=== PATIENT | male | born 1950 | race Caucasian/White ===

== ENCOUNTER → 2017-04-17 | Outpatient (CLI) | payer BC ==
--- NOTE | 2017-04-17 08:10 | XR ---
EXAMINATION TYPE: XR chest 2V DATE OF EXAM: 04/17/2017 COMPARISON: NONE HISTORY: Presurgical study. TECHNIQUE: Frontal and lateral views of the chest are obtained. FINDINGS: There is no focal air space opacity, pleural effusion, or pneumothorax seen. Underlying m ild emphysematous change is not excluded on lateral view. The cardiac silhouette size is within anuj l limits. The osseous structures are intact. IMPRESSION: No acute cardiopulmonary process.
[2017-04-17 08:14] LABS: Appearance,Urine Clear (Clear); Bilirubin,Urine Negative (Negative); Blood,Urine Negative (Negative); Color,Urine Yellow; Glucose,Urine (UA) Negative (Negative); Ketones,Urine Negative (Negative); Leukocyte Esterase,Urine Negative (Negative); Nitrite,Urine Negative (Negative); Protein,Urine Negative (Negative); Specific Gravity,Urine 1.006 (1.001-1.035); Urobilinogen,Urine <2.0 mg/dL (<2.0)
[2017-04-17 08:15] LABS: Basophils # (A) 0.1 k/uL (0-0.2); Basophils % (A) 1 %; Eosinophils # (A) 0.3 k/uL (0-0.7); Eosinophils % (A) 3 %; HGB 16.2 gm/dL (13.0-17.5); Lymphocytes # (A) 2.3 k/uL (1.0-4.8); Lymphocytes % (A) 21 %; MCHC 31.7 g/dL (31.0-37.0); MCV 91.4 fL (80.0-100.0); Mean Platelet Volume 7.7; Monocytes # (A) 0.7 k/uL (0-1.0); Monocytes % (A) 6 %; Neutrophils # (A) 7.5 k/uL (1.3-7.7); Neutrophils % (A) 68 %; Platelet Count 314 k/uL (150-450); RBC 5.58 m/uL (4.30-5.90); RDW 14.9 % (11.5-15.5)
[2017-04-17 08:22] LABS: Prothrombin Time 9.9 sec (9.0-12.0)
[2017-04-17 08:37] LABS: Anion Gap 9 mmol/L; Blood Urea Nitrogen 10 mg/dL (9-20); Calcium 10.1 mg/dL (8.4-10.2); Carbon Dioxide 26 mmol/L (22-30); Chloride 105 mmol/L (98-107); Glucose 113 mg/dL (74-99); Potassium 4.5 mmol/L (3.5-5.1); Sodium 140 mmol/L (137-145)
== END | disposition home or self-care (01) ==
LOC: LABPAT 07:29
PROVIDERS: ATTEND Orthopaedic Surgery Orthopaedic Surgery of the Spine
DX: Z01.818 Encounter for other preprocedural examination (principal); M43.17 Spondylolisthesis, lumbosacral region; Z79.01 Long term (current) use of anticoagulants; Z01.812 Encounter for preprocedural laboratory examination
CPT/HCPCS: 71046; 80048; 81003; 85025; 85610; 85730; 87070

== ENCOUNTER 2017-04-24 10:26 | Inpatient (IN) | payer BC ==
[2017-04-14 15:20] VITALS: BMI 27.2
[~2017-04-24 10:26] MED LIST: BACITRACIN 50,000 UNIT, POLYMYXIN B 500,000 UNIT in SODIUM CHLORIDE 0.9% IRRIGATIO 1,00... IRRIGATION ONE; DEXAMETHASONE SOD PHOSPHATE 10 MG/ML 1 ML VIAL IV ONE; HYDROmorphone 0.5 MG/0.5 ML SYRINGE IVP PRN; LIDOCAINE 1% 20 ML VIAL (10MG/ML) FOR IV START INTRADERMA PRN; MIDAZOLAM 2 MG/2 ML VIAL IV PRN; ONDANSETRON 4 MG/2 ML VIAL IVP ONE; ceFAZolin 2 GM in SODIUM CHLORIDE 0.9% 100 ML IVPB ONE; ceFAZolin IN SWFI 2 GM/20 ML SYRINGE IVP ONE
[2017-04-24] MEDS: LACTATED RINGERS 1,000 ML IV SCH (11:19)
[2017-04-24 11:22] VITALS: RESP 16
[2017-04-24] MEDS ORDERED: HEPARIN SODIUM,PORCINE 10,000 UNIT/ML 1 ML VIAL ONE (12:39)
[2017-04-24] MEDS ORDERED: LIDOCAINE 1% INJ 10MG/ML (20 ML MDV) ONE (12:39)
[2017-04-24] MEDS ORDERED: fentaNYL (PF) 50 MCG/ML 2 ML AMP ONE (12:39)
[2017-04-24] MEDS ORDERED: SUCCINYLCHOLINE CHLORIDE 100 MG/5 ML SYR IV ONE (12:39)
[2017-04-24] MEDS ORDERED: ePHEDrine 50 MG/ML 1 ML AMP ONE (12:39)
[2017-04-24] MEDS ORDERED: MIDAZOLAM 2 MG/2 ML VIAL ONE (12:39)
[2017-04-24] MEDS ORDERED: PHENYLEPHRINE-0.9% NACL SYG 1 MG/10 ML SYRINGE ONE (12:39)
[2017-04-24] MEDS ORDERED: SODIUM CHLORIDE 0.9% IRRIG 1,000 ML BTL IRRIGATION ONE (12:39)
[2017-04-24] MEDS ORDERED: GLYCOPYRROLATE 0.2 MG/ML 2 ML VIAL ONE (12:39)
[2017-04-24] MEDS ORDERED: PROPOFOL 10 MG/ML 20 ML VIAL IV ONE (12:39)
[2017-04-24] MEDS ORDERED: BUPIVACAINE (PF) 0.5% 30 ML VIAL SQ ONE (13:29)
[2017-04-24] MEDS ORDERED: LACTATED RINGERS 1,000 ML IV ONE (14:28)
--- NOTE | 2017-04-24 15:18 | FL ---
EXAMINATION TYPE: FL guidance operating room, XR lumbar spine 2 or 3V DATE OF EXAM: 04/24/2017 CLINICAL HISTORY: Low back pain. TECHNIQUE: Fluoroscopy. Intraoperative 2 views lumbar spine. COMPARISON: None. FINDINGS: Fluoroscopic guidance was provided during minimally invasive lumbar fusion procedure perfo rmed by Dr. Brooks. A total of 1 minute 8 seconds of fluoroscopic time was utilized during the proced ure and 2 spot intraoperative images are acquired. Intraoperative images obtained show placement of posterior fusion hardware and metallic disc material L5-S1 level. Disc is not well seen on lateral view due to underpenetration and portable technique. IMPRESSION: As Above.
[2017-04-24] MEDS ORDERED: DIAZEPAM 5 MG TAB PO PRN (15:23)
[2017-04-24] MEDS ORDERED: HYDROmorphone 4 MG/ML 1 ML SYRINGE IVP PRN ×2 (15:23)
[2017-04-24] MEDS ORDERED: ONDANSETRON 4 MG/2 ML VIAL IVP PRN (15:23)
[2017-04-24] MEDS ORDERED: HYDROcodone/APAP 5-325MG 1 EACH TAB PO PRN ×2 (15:23)
[2017-04-24] MEDS ORDERED: BENZOCAINE/MENTHOL LOZENG 1 EACH LOZENGE MUCOUS MEM PRN (15:23)
[2017-04-24] MEDS ORDERED: MAGNESIUM HYDROXIDE 2,400 MG/10 ML CUP PO PRN (15:23)
--- NOTE | 2017-04-24 15:31 | P.OP ---
Date of Procedure: 04/24/17 Preoperative Diagnosis: Grade 2 spondylolisthesis L5-S1, degenerative disc disease, spinal stenosis, lower extremity radiculopathy Postoperative Diagnosis: same Anesthesia: GETA Pathology: none sent Condition: stable Disposition: PACU Description of Procedure: DESCRIPTION OF PROCEDURE(S): BRIEF OPERATIVE NOTE Preoperative Diagnosis: Grade 2 spondylolisthesis L5-S1, spinal stenosis L5-S1, degenerative disc disease L5-S1, back pain with lower extremity radiculopathy Postoperative Diagnosis: Same Procedure: Laminectomy and decompression with facetectomy L5-S1 Minimally invasive Posterior lateral decompression and facet fusion L5-S1 Minimally invasive Transforaminal lumbar interbody fusion for a 360 fusion L5-S1 Discectomy for decompression L5-S1 Placement of interbody graft L5-S1 Local autogenous bone grafting Harvesting of bone marrow aspirate via the pedicle of L5 Use of Cell Saver Use of bone graft extenders Surgeon: Dr. Brooks Application Support Analyst: Ham Ramirez is present throughout the entire the case persistence during positioning, dissection, exposure, visualization, and all crucial elements of the case as well as closure. Anesthesia: General anesthesia Estimated blood loss: Approximately 100 mL with none given back in Cell Saver Complications: None apparent Components implanted: K2M minimally invasive [place] pedicle screw system with 6.5 mm screws and 2 rods and 1. I'm titanium interbody cage with osteo-amp sponge and DBX bone putty to supplemental local autogenous and bone marrow aspirate Disposition: To recovery room in good stable condition. OPERATIVE INDICATIONS The patient has had long-standing issues in their lower back and lower extremities. He was found have a dynamic spondylolisthesis which was grade 2 at L5-S1 which correlated well with his back and lower extremity symptoms. He had significant radiculopathy as well as back pain due to spondylolisthesis and stenosis at L5-S1. The patient has been through conservative treatment. He was having progressive pain and was not having any benefit despite aggressive conservative treatment. We discussed various treatment options including surgery, and the patient wishes to proceed with surgery We discussed the risk, patient's alternatives and benefits of surgery including but not limited to, risk of bleeding risk of infection, risk of need for further surgery, risk of decreased, loss of motion, muscle function, malunion nonunion, hardware failure , nerve damage, paralysis, heart attack, blindness and . OPERATIVE SUMMARY After discussing all the risks, patient alternatives and benefits at length, the patient elected to proceed with surgical intervention, signed informed consent, and presented for their procedure. The patient was seen and examined in the preoperative holding area and the surgical site was marked. The patient was given antibiotics and brought to the operating room. The patient was sedated and intubated by anesthesia in standard fashion. The patient was positioned on to the operating room table in a prone position on the appropriate frame which was well-padded and well molded. We were careful to pad any bony prominences and pressure points. We were careful to maintain the patient's cervical spine and good neutral alignment and position throughout. The patient was prepped and draped in a normal standard fashion. An appropriate timeout and keystone protocol performed. We were able to proceed with the surgery. The local wound area was infiltrated with local anesthetic. I was able utilize C-arm guidance to establish appropriate position over the pedicles bilaterally at the appropriate levels at L5-S1. With the appropriate levels confirmed was able to make small stab incisions over the appropriate pedicle sites bilaterally. Utilizing C-arm in his house able to establish a Jamshidi needle over the lateral aspect of the pedicle and advanced the trocar into the pedicle being careful not to breech superiorly inferiorly medially or laterally. Position was confirmed regularly with AP and lateral images on C- arm. I was able to establish the trocar into the pedicle appropriately into the posterior aspect of the vertebral body bilaterally at the appropriate levels. This was done at each of the pedicle positions and each of the vertebrae at L5-S1. I was able place the guidewire into the trocar and into the vertebral body appropriately under C-arm guidance. Dissection was taken down over the wire to the appropriate starting position for the screw placed. The appropriate length screw was chosen, threaded over the guidewire and screwed appropriately into the pedicle and vertebral body under C-arm guidance in excellent alignment and position with good bony purchase. This is done at each of the screw sites at the appropriate levels. With the screws intact I extended the incision to connect the screw hole sites on the most symptomatic side on the left. I dissected down to establish access over the pars and lamina to the base of the spinous process. I was able to expose the facet joint. The capsule the facet was taken down and showed some facet arthrosis at the joint. I was able to use a combination of curettes and Kerrison rongeurs and a high-speed drill to take down the facet joint and do a facetectomy. Partial laminectomy was also performed. I was able get excellent foraminal decompression and central decompression with undermining across midline to perform a laminectomy centrally and contralaterally. As able get good central decompression. The ligamentum flavum was taken down to further decompress centrally and at bilateral neural foramen. I was able to expose the disc space and visualize the traversing nerve root. Note was made of some disc protrusion at the level causing further compression of the nerve root. I was able to establish a annulotomy at the appropriate level protecting soft tissue and neural structures. Note was made of some disc desiccation at the disc. I performed a complete discectomy with accommodation of curettes and rasps and scrapers. I was able get good endplate preparation at the disc space. I was able to get some good reduction of the listhesis at L5-S1. I sized for the appropriate size interbody spacer protecting the soft tissue and neural structures. The wound was copiously irrigated and suctioned dry. There is no evidence of any dural tear or leak. I was able to pack the disc space with local autogenous bone graft as well as a small amount of bone graft which was also placed into the interbody cage itself. Protecting the soft tissue structures and neural structures I was able place the interbody cage in good alignment and good position with good fit and fill at the interbody space of L5-S1. His issues was confirmed with C-arm guidance. Good hemostasis maintained. There is no evidence of any dural tear or leak. The wound was irrigated and suctioned dry. With the hardware intact, intraoperative C-arm imaging was again taken which showed good alignment and position of the hardware at the appropriate levels of L5-S1. We were then able to measure, contour and place the rods and appropriate hardware bilaterally. I was able to place capcrews, tighten them down, and torque them with the torque screwdriver appropriately. With this intact I was able to place the local autogenous bone graft with additional bone graft enhancer as necessary into the posterior lateral gutters over the decorticated transverse processes. The remainder of the bone graft was placed over the facet joint on the contralateral side after taking down the facet joint capsule. With the bone graft intact, a stable construct, and good decompression at the appropriate levels, we were able to proceed with closure. Good hemostasis was maintained. There is no evidence of dural tear or leak. The fascia was closed for a watertight closure. he subcuticular tissue was closed with absorbable suture. The wound was cleaned and dried and dressed with the appropriate dressing. The drapes were broken down. The patient was gently rolled back onto their hospital bed being careful to maintain their cervical spine and good neutral alignment and position. They were woken up by anesthesia, extubated, and brought to the recovery room in good stable condition. The patient will be admitted to the hospital for appropriate postoperative care , medical management and monitoring. We will continue to follow them closely about the postoperative course.
[2017-04-24] MEDS: SODIUM CHLORIDE 0.9% 1,000 ML IV SCH (16:43)
[2017-04-24] MEDS ORDERED: PANTOPRAZOLE 40 MG TABLET PO SCH (17:30)
[2017-04-24] MEDS: CLINDAMYCIN 900 MG in DEXTROSE 5% IN WATER 50 ML IVPB SCH ×4 (17:37→23:55)
[2017-04-24] MEDS: NICOTINE 21MG/24HR PATCH TRANSDERM SCH (20:37)
[2017-04-25] MEDS: SODIUM CHLORIDE 0.9% 1,000 ML IV SCH (03:20)
[2017-04-25] MEDS ORDERED: ACETAMINOPHEN TAB 325 MG TAB PO PRN (07:04)
[2017-04-25] MEDS: LACTATED RINGERS 1,000 ML IV SCH (07:07)
[2017-04-25 07:16] LABS: Basophils # (A) 0.1 k/uL (0-0.2); Basophils % (A) 0 %; Eosinophils # (A) 0.1 k/uL (0-0.7); Eosinophils % (A) 1 %; HCT 44.9 % (39.0-53.0); HGB 15.2 gm/dL (13.0-17.5); Lymphocytes # (A) 2.7 k/uL (1.0-4.8); Lymphocytes % (A) 12 %; MCH 30.8 pg (25.0-35.0); MCHC 33.9 g/dL (31.0-37.0); MCV 90.9 fL (80.0-100.0); Mean Platelet Volume 6.5; Monocytes # (A) 1.4 k/uL (0-1.0); Monocytes % (A) 6 %; Neutrophils # (A) 18.5 k/uL (1.3-7.7); Neutrophils % (A) 80 %; Platelet Count 332 k/uL (150-450); RBC 4.95 m/uL (4.30-5.90); RDW 13.2 % (11.5-15.5)
[2017-04-25 07:25] LABS: Anion Gap 12 mmol/L; Blood Urea Nitrogen 9 mg/dL (9-20); Calcium 10.2 mg/dL (8.4-10.2); Carbon Dioxide 26 mmol/L (22-30); Chloride 102 mmol/L (98-107); Glucose 114 mg/dL (74-99); Potassium 4.1 mmol/L (3.5-5.1); Sodium 140 mmol/L (137-145)
[2017-04-25 08:06] VITALS: BP 155/83; PULSE 95; TEMP 98.2
[2017-04-25] MEDS: NICOTINE 21MG/24HR PATCH TRANSDERM SCH (08:18)
[2017-04-25] MEDS ORDERED: SENNOSIDES-DOCUSATE SODIUM 1 EACH TAB PO SCH (09:00)
--- NOTE | 2017-04-25 12:23 | P.DS ---
Providers Date of admission: 04/24/17 10:51 Expected date of discharge: 04/25/17 Attending physician: Lizzie Brooks Consults: 04/24/17 15:23 Consult Physician Routine Consulting Provider: Pietro Martinez Consult Reason/Comments: Medical management Do you want consulting provider notified?: Yes Primary care physician: Marqius Kat - Discharge Diagnosis(es) (1) Lumbar canal stenosis Current Visit: Yes Status: Acute (2) Radiculopathy with lower extremity symptoms Current Visit: Yes Status: Acute (3) Low back pain Current Visit: Yes Status: Acute (4) Spondylolisthesis at L5-S1 level Current Visit: Yes Status: Acute (5) DDD (degenerative disc disease), lumbosacral Current Visit: Yes Status: Acute Hospital Course: This is a pleasant 66-year-old male who presented with L5-S1 grade 2 spondylolisthesis, degenerative disc disease, and spinal canal stenosis with low back pain and lower extremity radiculopathy who failed outpatient conservative therapy. He was admitted for a minimally invasive posterior lateral decompression and fusion with transforaminal lumbar interbody fusion at L5-S1. The patient tolerated the procedure well and did well postoperatively. He has been able to ambulate the hallways multiple times without significant difficulty. His back pain has been controlled. He states he did not take any narcotic pain medication postoperatively until 8:00 this morning. He's been eating and voiding without difficulty. He is not experiencing any abdominal pain. He is not currently complaining of any lower extremity radiculopathy symptoms. He states he is ready for discharge home. Condition on day of discharge stable. Patient will be discharged home. Patient was cleared preoperatively for surgery by . Patient currently denies any nausea, vomiting, fever, or chills. Patient is eating and voiding freely without difficulty. Patient may shower Tegaderm dressing intact. Patient may remove Tegaderm dressing in 3 days and shower without a dressing at that time. Patient should keep Steri-Strips intact and allow them to fall off naturally. Patient should refrain from driving until at least after their first follow-up appointment in the office. Patient should avoid excessive bending, lifting, and twisting; no lifting greater than 10 pounds. We discussed patient may resume previous he prescribed home medications. He should avoid anti-inflammatories over the next 6 weeks. Patient has medication at home for [place] 5 mg/325 mg daily which he may take as previously prescribed. He does have some difficulty with constipation but states he has stool softeners and laxatives as prescribed by his primary care provider. He may take this medication as prescribed as needed for relief of symptoms. His dressing is currently dry and intact. We will plan for his dressing to be changed prior to discharge home to nonstick Telfa and Tegaderm. Physical Exam on day of discharge: Patient is awake, alert, and oriented 3 Vital signs stable Good chest excursion with deep inspiration and expiration Abdomen soft nontender No signs or symptoms of DVT; no calf pain Extensor hallucis longus, plantarflexion, and dorsiflexion positive sustained bilateral lower extremities Patient is able to lift legs independently off the bed without significant difficulty No significant pain with palpation of the incision sites Incision is dry and intact with some dried blood at the inferior portion of the incision sites; no erythema, purulence, or signs of infection Tegaderm dressing and non-stick Telfa intact Procedures: Minimally invasive posterior lateral decompression and fusion with transforaminal lumbar interbody fusion L5-S1 Patient Condition at Discharge: Stable Plan - Discharge Summary Discharge Rx Participant: Yes New Discharge Prescriptions: No Action Esomeprazole Magnesium [NexIUM] 40 mg PO AC-SUPPER Nicotine 21Mg/24Hr Patch [Habitrol 21Mg/24Hr Patch] 1 patch TRANSDERM DAILY Discharge Medication List Esomeprazole Magnesium [NexIUM] 40 mg PO AC-SUPPER 04/14/17 [History] Nicotine 21Mg/24Hr Patch [Habitrol 21Mg/24Hr Patch] 1 patch TRANSDERM DAILY 08/04 [History] Follow up Appointment(s)/Referral(s): Marquis Kat MD [Primary Care Provider] - 1 Week Ham Diaz PAC [PHYSICIAN COMMUNITY AFFAIRS DIRECTOR] - 2 Weeks (Patient may follow-up with Ham Diaz PA-C or Dr. Saurabh Brooks at [facility] in 2-3 weeks following discharge. ) Activity/Diet/Wound Care/Special Instructions: 1. Patient may shower with Tegaderm dressing intact. 2. Patient may remove Tegaderm dressing in 3 days and shower without a dressing at that time. 3. Patient should keep Steri-Strips intact and allow them to fall off naturally. 4. Patient should refrain from driving until at least after their first follow- up appointment in the office. 5. Patient should avoid excessive bending, twisting, and lifting; no lifting greater than 10 pounds 6. Take medications as prescribed 7. Do not soak in tub Discharge Disposition: HOME SELF-CARE
== END 2017-04-25 13:48 | disposition home or self-care (01) | DRG 455 ==
LOC: 2ORMAIN 10:51 → 3SUR 15:29
PROVIDERS: ADMIT Orthopaedic Surgery Orthopaedic Surgery of the Spine; ATTEND Orthopaedic Surgery Orthopaedic Surgery of the Spine
DX: M43.17 Spondylolisthesis, lumbosacral region (principal); M41.86 Other forms of scoliosis, lumbar region; K59.00 Constipation, unspecified; M48.061 Spinal stenosis, lumbar region without neurogenic claudication; M51.17 Intervertebral disc disorders with radiculopathy, lumbosacral region; Z79.891 Long term (current) use of opiate analgesic; Z79.899 Other long term (current) drug therapy; Z88.0 Allergy status to penicillin; Z88.2 Allergy status to sulfonamides; Z88.8 Allergy status to other drugs, medicaments and biological substances; Z82.49 Family history of ischemic heart disease and other diseases of the circulatory system; Z72.0 Tobacco use
CPT/HCPCS: 71046; 72100; 80048; 81003; 85025; 85610; 85730; 86850; 86891; 86900; 86901; 87070

== ENCOUNTER → 2022-12-21 | Outpatient (CLI) | payer MEDICARE ==
[2022-12-21 11:20] LABS: Appearance,Urine Clear (Clear); Bacteria,Urine Rare /hpf; Bilirubin,Urine Negative (Negative); Blood,Urine Small (Negative); Color,Urine Yellow; Glucose,Urine (UA) Negative (Negative); Ketones,Urine Negative (Negative); Leukocyte Esterase,Urine Moderate (Negative); Mucus,Urine Moderate /hpf; Nitrite,Urine Negative (Negative); Protein,Urine Trace (Negative); RBC,Urine 44 /hpf (0-5); Specific Gravity,Urine 1.016 (1.001-1.035); Squamous Epithelial Cell,Urine <1 /hpf (0-4); Urobilinogen,Urine <2.0 mg/dL (<2.0); WBC,Urine 31 /hpf (0-5)
[2022-12-21 16:11] LABS: ALT 12 U/L (10-49); AST 14 U/L (14-35); Albumin 4.4 d/dL (3.8-4.9); Albumin/Globulin Ratio 1.91 Ratio (1.60-3.17); Alkaline Phosphatase 105 U/L (41-126); BUN/Creat Ratio 9.88 Ratio (12.00-20.00); Blood Urea Nitrogen 7.9 mg/dL (9.0-27.0); Calcium 9.8 mg/dL (8.7-10.3); Carbon Dioxide 25.7 mmol/L (21.6-31.8); Chloride 102 mmol/L (96-109); Globulin 2.3 d/dL (1.6-3.3); Glucose 102 mg/dL (70-110); Potassium 4.4 mmol/L (3.5-5.5); Sodium 141 mmol/L (135-145); Total Bilirubin <0.2 mg/dL (0.3-1.2); Total Protein 6.7 d/dL (6.2-8.2)
[2022-12-21 16:27] LABS: Basophils % (A) 0.8 %; Eosinophils # (A) 0.38 X 10*3/uL (0.04-0.35); Eosinophils % (A) 3.1 %; HCT 49.6 % (39.6-50.0); HGB 16.2 d/dL (13.0-17.0); Lymphocytes # (A) 3.49 X 10*3/uL (0.90-5.00); Lymphocytes % (A) 28.4 %; MCH 28.7 pg (27.0-32.0); MCHC 32.7 d/dL (32.0-37.0); MCV 87.8 FL (80.0-97.0); Mean Platelet Volume 9.4 FL (9.5-12.2); Monocytes # (A) 1.01 X 10*3/uL (0.20-1.00); Monocytes % (A) 8.2 %; NRBC Per 100 WBC 0 X 10*3/uL (0.00-0.01); Neutrophils # (A) 7.27 X 10*3/uL (1.80-7.70); Neutrophils % (A) 59.2 %; Platelet Count 336 X 10*3/uL (140-440); RBC 5.65 X 10*6/uL (4.40-5.60); RDW 14.4 % (11.5-14.5); WBC 12.29 X 10*3/uL (4.50-10.00)
== END | disposition home or self-care (01) ==
LOC: LABPAT 09:59
PROVIDERS: ATTEND Urology
DX: Z01.812 Encounter for preprocedural laboratory examination (principal); N20.0 Calculus of kidney
CPT/HCPCS: 36415; 80053; 81001; 85025; 86850; 86900; 86901; 87086

== ENCOUNTER 2022-12-28 07:17 | Day surgery (SDC) | payer MEDICARE ==
--- NOTE | 2022-12-27 18:05 | P.GSHP ---
History of Present Illness H&P Date: 12/27/22 72 yo male with a history of stones. He recently saw Dr Ovalle while at [facility] and was found to have a 2 cm right renal pelvic stone with obstruction. He was given treatment options and was set up for a PCNL right by me. - Constitutional Constitutional: Denies chills, Denies fever - EENT Eyes: denies blurred vision, denies pain Ears, nose, mouth and throat: Denies headache, Denies sore throat - Cardiovascular Cardiovascular: Denies chest pain, Denies shortness of breath - Respiratory Respiratory: Denies cough, Denies 7 - Gastrointestinal Gastrointestinal: Denies abdominal pain, Denies diarrhea, Denies nausea, Denies vomiting - Genitourinary (Female) Genitourinary: Denies dysuria, Denies hematuria - Genitourinary (Male) Genitourinary: Denies dysuria, Denies hematuria - Musculoskeletal Musculoskeletal: Denies myalgias - Integumentary Integumentary: Denies pruritus, Denies rash - Neurological Neurological: Denies numbness, Denies weakness - Psychiatric Psychiatric: Denies anxiety, Denies depression - Endocrine Endocrine: Denies fatigue, Denies weight change Past Medical History Past Medical History: Fibromyalgia, GERD/Reflux Additional Past Medical History / Comment(s): "chronic bronchitis", seasonal allergies, kidney stones, History of Any Multi-Drug Resistant Organisms: None Reported Past Surgical History: Hernia Repair, Joint Replacement, Tonsillectomy Additional Past Surgical History / Comment(s): sinus surg. spinal cord implant apr 2022, ft hip replaced, Past Anesthesia/Blood Transfusion Reactions: No Reported Reaction Smoking Status: Current every day smoker - Past Family History Father Family Medical History: Cancer Medications and Allergies Home Medications Medication Instructions Recorded Confirmed Type Multivitamins, Thera [Multivitamin 1 tab PO DAILY 12/22/22 12/22/22 History (formulary)] Pregabalin 100 mg PO TID 12/22/22 12/22/22 History Allergies Allergy/AdvReac Type Severity Reaction Status Date / Time dicyclomine [From Bentyl] Allergy Rapid Verified 12/22/22 11:37 Heart Rate moxifloxacin [From Avelox] Allergy Anaphylaxis Verified 12/22/22 11:37 Penicillins Allergy Unknown Verified 12/22/22 11:37 Childhood Sulfa (Sulfonamide Allergy Unknown Verified 12/22/22 11:37 Antibiotics) Childhood bacitracin AdvReac skin Verified 12/22/22 11:37 [From Neosporin blisters ([id number])] neomycin AdvReac skin Verified 12/22/22 11:37 [From Neosporin blisters ([id number])] polymyxin B AdvReac skin Verified 12/22/22 11:37 [From Neosporin blisters ([id number])] Surgical - Exam - General well developed, well nourished, no distress - Eyes normal ocular movement, no icteric - ENT no hearing loss, no congestion - Neck no masses, trachea midline - Respiratory normal respiratory effort, clear to auscultation - Abdomen Abdomen: soft, non tender, no guarding, no rigid, no rebound - Integumentary no rash, no abnormal pigmentation - Neurologic no disoriented, no combative - Psychiatric oriented to time, oriented to person, oriented to place, speech is normal, memory intact Results - Imaging CT scan - abdomen: report reviewed, image reviewed CT scan - pelvis: report reviewed, image reviewed Assessment and Plan Assessment: Impression: Right renal stone, 2cm Plan: right pcnl
[~2022-12-28 07:17] MED LIST changes: -BACITRACIN 50,000 UNIT, POLYMYXIN B 500,000 UNIT in SODIUM CHLORIDE 0.9% IRRIGATIO 1,00... IRRIGATION ONE; -DEXAMETHASONE SOD PHOSPHATE 10 MG/ML 1 ML VIAL IV ONE; -HYDROmorphone 0.5 MG/0.5 ML SYRINGE IVP PRN; +LIDOCAINE 1% (10MG/ML) FOR IV START INTRADERMA PRN; -LIDOCAINE 1% 20 ML VIAL (10MG/ML) FOR IV START INTRADERMA PRN; -MIDAZOLAM 2 MG/2 ML VIAL IV PRN; -ceFAZolin 2 GM in SODIUM CHLORIDE 0.9% 100 ML IVPB ONE; -ceFAZolin IN SWFI 2 GM/20 ML SYRINGE IVP ONE
[2022-12-28] MEDS: LACTATED RINGERS 1,000 ML IV SCH (07:49)
--- NOTE | 2022-12-28 08:11 | XR ---
EXAMINATION TYPE: XR KUB DATE OF EXAM: 12/28/2022 Comparison: None Clinical History: 72-year-old male Right Renal Stone N20.0 Findings: Large 2.3 cm calcification projecting at the right mid abdomen. Smaller 4 mm calcification at the lef t mid abdomen. Generator device at the right side of the pelvis with leads extending up into the lowe r thoracic spinal canal. L5-S1 posterior and interbody lumbar fusion hardware. Partially visualized r ight total hip arthroplasty. Mild to moderate degenerative change left hip. There is moderate to larg e stool burden with bowel content largely obscuring the renal shadows. Lung bases are clear. No dilat ed small bowel loops. Impression: 1. A 2.3 cm stone at the right mid abdomen, likely within the kidney. Smaller 4 mm calcification on t he left. 2. Moderate to large stool burden.
[2022-12-28] MEDS ORDERED: IOPAMIDOL-370 100ML BTL MISCELLANE ONE (10:15)
[2022-12-28] MEDS ORDERED: MAG HYDROX/AL HYDROX/SIMETH 30 ML CUP PO PRN (11:39)
[2022-12-28] MEDS ORDERED: ACETAMINOPHEN TAB 325 MG TAB PO PRN (11:39)
[2022-12-28] MEDS ORDERED: ONDANSETRON 4 MG/2 ML VIAL IVP PRN (11:39)
[2022-12-28] MEDS ORDERED: HYDROmorphone PCA 10 MG/50 ML BAG IV PRN (11:40)
[2022-12-28] MEDS ORDERED: NALOXONE 0.4 MG/ML 1 ML VIAL IV PRN (11:40)
--- NOTE | 2022-12-28 11:45 | P.OP ---
Date of Procedure: 12/28/22 Preoperative Diagnosis: Right renal calculus, large (2.4 cm) Postoperative Diagnosis: Same Procedure(s) Performed: Cystoscopy, placement of occluding balloon catheter right, percutaneous nephrostomy (Dr. Mcguire/joseph), percutaneous nephrostolithotomy ultrasound, placement of 10 J nephrostomy Anesthesia: SAVAGE Surgeon: Giovanni Mcguire Estimated Blood Loss (ml): 100 Pathology: other (Stone) Condition: stable Disposition: PACU Indications for Procedure: Patient is 72. He has a 2.4cm right renal pelvic stone causing pain. He's been given treatment options. He comes for percutaneous nephrostolithotomy Description of Procedure: Patient brought to the operating suite. On the transport gurney he's placed in a frog position after a successful general endotracheal anesthesia. He is prepped and draped sterilely. Cystoscopy Foroblique lens and 21-Nepali sheath identifies an obstructing prostate. The right ureteral orifice is intubated with a 5-Nepali occluding balloon catheter passed up into the UPJ. The cystoscope was removed. Secured to a 16-Nepali Lowery. Patient is placed in a prone position with care to airways and extremities. I performed percutaneous access to the right middle pole calyx with the help of Dr. ruiz. This will be dictated separately. I then dilate the tract to 30- [place]. Introduced the rigid scope into the right kidney. The stone was seen in the right renal pelvis. With ultrasound is broken into smaller pieces in either suctioned out or grasp it with grasping forceps. At the end of the procedure I passed the flexible nephroscope throughout the collecting system and basketed other small fragments. I passed the nephroscope down the ureter and do not see any remaining stone. A 10 J nephrostomy tubes placed the patient is awakened and returned recovery room good condition. He tolerated the procedure well. Blood loss is approximately 100 mL.
--- NOTE | 2022-12-28 11:49 | P.PCN ---
Date of Procedure: 12/28/22 Preoperative Diagnosis: Right renal stone, 2.4 cm Postoperative Diagnosis: Same Procedure(s) Performed: Percutaneous access to right middle pole calyx Surgeon: Giovanni Mcguire Indications for Procedure: The patient has a 2.4 painful right renal pelvic stone and he comes for percutaneous nephrostolithotomy. Description of Procedure: The patient is been previously anesthetized placed on the operating table in a prone position with care to his airway and extremities. I injected air through the previously placed 5-[place]izen [place] occluding catheter in the proximal right ureter. The right middle pole calyx is identified and I pass a 21-[place]izen [place] sheath and a needle into the middle pole calyx. I then pass the nitenol wire into the collecting system. Over the Nitinol wire is then passed the introduction catheter. I removed the inner sheath and then pass an 035 angled glide into the collecting system. Unable to manipulate this down the ureter thus over the wire pass a 3-[place] catheter into the renal pelvis. I am difficult to negotiate in the wire down the renal pelvis so I asked Dr. ruiz of radiology to assist were able to guide the wire down the ureter. I then removed the [place] guidewire and pass an 035 Super Stiff wire into the ureter. I then pass the 8-10-Citizen [place] dilating catheter and removed the inner catheter and pass a another 035 wire down the ureter. Over the working wire then pass a dilating balloon and dilated the tract to 30-Citizen [place] and introduced the working sheath into the collecting system.
[2022-12-28] MEDS: HYDROmorphone 0.5 MG/0.5 ML SYRINGE IVP PRN ×2 (11:54→12:05)
[2022-12-28] MEDS ORDERED: MEPERIDINE 50 MG/ML SYRINGE IVP ONE (12:13)
--- NOTE | 2022-12-28 12:49 | FL ---
EXAMINATION TYPE: FL Perc Nephrostomy New Access DATE OF EXAM: 12/28/2022 COMPARISON: NONE HISTORY: Fluoroscopy TECHNIQUE: Fluoroscopy. FINDINGS: Fluoroscopic guidance was provided during. (DAP) in uGy*m?, mGy*cm? (or similar): 66.491. IMPRESSION: As Above.
[2022-12-28] MEDS ORDERED: LACTATED RINGERS 1,000 ML IV ONE (13:07)
[2022-12-28] MEDS: DEXTROSE 5%-0.45% NACL 1,000 ML IV SCH ×2 (13:53→21:41)
[2022-12-28] MEDS: PREGABALIN 100 MG CAP PO SCH ×2 (18:20→21:39)
[2022-12-29] MEDS: LACTATED RINGERS 1,000 ML IV SCH (05:57)
--- NOTE | 2022-12-29 07:00 | P.DS ---
Providers Attending physician: Giovanni Mcguire Primary care physician: Marquis Daly Miriam Hospital Course: This is a 72-year-old male that underwent a right-sided percutaneous nephrolithotomy by Dr. Mcguire. Patient was admitted to the hospital postoperatively. His catheter was removed on postoperative day #1. He was discharged home on postoperative day #1, at time of discharge was tolerating a diet, and bleeding, pain was controlled. He was discharged home with the nephrostomy tube Plan - Discharge Summary Discharge Rx Participant: No New Discharge Prescriptions: New Ketorolac [Toradol] 10 mg PO Q6HR PRN #15 tab PRN Reason: Pain No Action Multivitamins, Thera [Multivitamin (formulary)] 1 tab PO DAILY Pregabalin 100 mg PO TID Discharge Medication List Multivitamins, Thera [Multivitamin (formulary)] 1 tab PO DAILY 12/22/22 [History] Pregabalin 100 mg PO TID 12/22/22 [History] Ketorolac [Toradol] 10 mg PO Q6HR PRN #15 tab 12/29/22 [Rx] Activity/Diet/Wound Care/Special Instructions: Increase her fluid intake It is normal to have blood in the nephrostomy bag and urine No heavy lifting or straining You can change the dressing as needed
[2022-12-29 07:26] VITALS: BP 153/78; PULSE 83; RESP 15; TEMP 98.4
[2022-12-29] MEDS: PREGABALIN 100 MG CAP PO SCH (08:20)
== END 2022-12-29 09:48 | disposition home or self-care (01) ==
LOC: OR 07:17 → 4SSUR 13:23 → OR 12-29 09:48
PROVIDERS: ATTEND Urology
DX: N20.0 Calculus of kidney (principal); K21.9 Gastro-esophageal reflux disease without esophagitis; F17.200 Nicotine dependence, unspecified, uncomplicated; Z90.89 Acquired absence of other organs; Z98.890 Other specified postprocedural states; Z88.0 Allergy status to penicillin; Z88.2 Allergy status to sulfonamides; Z88.1 Allergy status to other antibiotic agents; Z79.899 Other long term (current) drug therapy
CPT/HCPCS: 94760; 82365; 50432; 74018; 50080; C1769 ×4; C2628; C1894; C1729; J2175; J0690; J2405 ×2; J1170 ×2; Q9967

== ENCOUNTER 2022-12-30 08:40 | Inpatient (IN) | payer MEDICARE ==
--- NOTE | 2022-12-30 09:15 | ED ---
General Adult HPI - General Chief complaint: Recheck/Abnormal Lab/Rx Stated complaint: Abd Pain Time Seen by Provider: 12/30/22 08:48 Source: patient Mode of arrival: ambulatory Limitations: no limitations - History of Present Illness Initial comments: Dictation was produced using [employer]ol[employer] dictation software. please excuse any grammatical, word or spelling errors. Chief Complaint: 72-year-old male presents emergency department with chest pain shortness of breath, hemoptysis and hematemesis. History of Present Illness: Patient 72-year-old male 2 days ago patient had a urologic procedure. Patient had right kidney nephrostomy and lithotomy. Patient states that yesterday he had episode of hematemesis, hemoptysis. He also has dull chest pain is worse with deep inspiration. Denies any history of blood clots. Denies any lower extremity pain. Patient does have abdominal pain which she is told to expect after surgery. Denies any fever or constitutional symptoms. The ROS documented in this emergency department record has been reviewed and confirmed by me. Those systems with pertinent positive or negative responses have been documented in the HPI. All other systems are other negative and/or noncontributory. - Related Data Home Medications Medication Instructions Recorded Confirmed Multivitamins, Thera [Multivitamin 1 tab PO DAILY 12/22/22 12/28/22 (formulary)] Pregabalin 100 mg PO TID 12/22/22 12/28/22 Previous Rx's Medication Instructions Recorded Ketorolac [Toradol] 10 mg PO Q6HR PRN #15 tab 12/29/22 Allergies Allergy/AdvReac Type Severity Reaction Status Date / Time dicyclomine [From Bentyl] Allergy Rapid Verified 12/30/22 12:12 Heart Rate moxifloxacin [From Avelox] Allergy Anaphylaxis Verified 12/30/22 12:12 Penicillins Allergy Unknown Verified 12/30/22 12:12 Childhood Sulfa (Sulfonamide Allergy Unknown Verified 12/30/22 12:12 Antibiotics) Childhood bacitracin AdvReac skin Verified 12/30/22 12:12 [From Neosporin blisters ([id number])] neomycin AdvReac skin Verified 12/30/22 12:12 [From Neosporin blisters ([id number])] polymyxin B AdvReac skin Verified 12/30/22 12:12 [From Neosporin blisters ([id number])] Review of Systems ROS Statement: Those systems with pertinent positive or pertinent negative responses have been documented in the HPI. ROS Other: All systems not noted in ROS Statement are negative. Past Medical History Past Medical History: Fibromyalgia, GERD/Reflux Additional Past Medical History / Comment(s): "chronic bronchitis", seasonal allergies History of Any Multi-Drug Resistant Organisms: None Reported Past Surgical History: Hernia Repair, Tonsillectomy Additional Past Surgical History / Comment(s): sinus surg.Kidney surgery. Past Anesthesia/Blood Transfusion Reactions: No Reported Reaction Past Psychological History: No Psychological Hx Reported Smoking Status: Never smoker Past Alcohol Use History: None Reported Past Drug Use History: None Reported - Past Family History Father Family Medical History: Cancer General Exam - General Exam Comments Initial Comments: PHYSICAL EXAM: General Impression: Alert and oriented x3, not in acute distress HEENT: Normocephalic atraumatic, extra-ocular movements intact, pupils equal and reactive to light bilaterally, mucous membranes moist. Cardiovascular: Heart regular rate and rhythm Chest: Able to complete full sentences, no retractions, no tachypnea Abdomen: abdomen soft, non-tender, non-distended, no organomegaly Musculoskeletal: Pulses present and equal in all extremities, no peripheral edema Motor: no focal deficits noted Neurological: CN II-XII grossly intact, no focal motor or sensory deficits noted Skin: Intact with no visualized rashes, surgical site clean dry and intact. Dressings around the nephrostomy tube site is clean dry and intact Psych: Normal affect and mood Limitations: no limitations Course Vital Signs 12/30/22 08:44 Temperature 98.7 F Pulse Rate 122 H Respiratory 24 Rate Blood Pressure 128/80 O2 Sat by Pulse 93 L Oximetry EKG Findings - EKG Comments: EKG Findings:: My EKG interpretation: Ventricular rate 105, sinus tachycardia,. 132, QRS 106, QTC 397. No [place] prolongation, no QTC prolongation, no ST or T-wave changes noted. Overall, this EKG is unremarkable Medical Decision Making - Medical Decision Making Was pt. sent in by a medical professional or institution (, PA, [employer], urgent care, hospital, or correction...) When possible be specific @ -No Did you speak to anyone other than the patient for history (EMS, parent, family, police, friend...)? What history was obtained from this source @ -No Did you review nursing and triage notes (agree or disagree)? Why? @ -I reviewed and agree with nursing and triage notes Were old charts reviewed (outside hosp., previous admission, EMS record, old EKG, old radiological studies, urgent care reports/EKG's, correction records)? Report findings @ -. Show the patient did have urologic procedure 2 days ago Differential Diagnosis (chest pain, altered mental status, abdominal pain women, abdominal pain men, vaginal bleeding, musculoskeletal, weakness, fever, dyspnea, syncope, headache, dizziness, GI bleed, back pain, seizure, CVA, palpatations, mental health)? @ -Differential Dyspnea: Coronary syndrome, arrhythmia, tamponade, asthma, COPD, pulmonary embolism, pneumonia, pneumothorax, pulmonary effusion, anaphylaxis, diabetic ketoacidosis, flailed chest, pulmonary contusion, diaphragmatic rupture, anemia, neuromuscular, this is not meant to be an all-inclusive list. EKG interpreted by me (3pts min.). @ -See above X-rays interpreted by me (1pt min.). @ -Bilateral lower lobe infiltrates CT interpreted by me (1pt min.). @ -No lung infiltrates, bilateral pleural effusions on CT angiography U/S interpreted by me (1pt. min.). @ -None done What testing was considered but not performed or refused? (CT, X-rays, U/S, labs)? Why? @ -None What meds were considered but not given or refused? Why? @ -None Did you discuss the management of the patient with other professionals (professionals i.e. , PA, [employer], lab, RT, psych nurse, social media content specialist, aluminum fabrication supervisor, teacher, parking regulation enforcement officer, clinical case manager)? Give summary @ -No Was smoking cessation discussed for >3mins.? @ -No Was critical care preformed (if so, how long)? @ -No Were there social determinants of health that impacted care today? How? (Homelessness, low income, unemployed, alcoholism, drug addiction, transportation, low edu. Level, literacy, decrease access to med. care, prison, rehab)? @ -No Was there de-escalation of care discussed even if they declined (Discuss DNR or withdrawal of care, Hospice)? DNR status @ -No What co-morbidities impacted this encounter? (DM, HTN, Smoking, COPD, CAD, Cancer, CVA, ARF, Chemo, Hep., AIDS, mental health diagnosis, sleep apnea, morbid obesity)? @ -None Was patient admitted / discharged? Hospital course, mention meds given and route, prescriptions, significant lab abnormalities, going to OR and other pertinent info. @ -72-year-old male presents with postoperative shortness of breath chest pain or vital signs shows tachycardia and mild hypoxia. Laboratory evaluation shows leukocytosis 24.5. Patient reevaluated at 12:20 PM reviewed in stable medical condition. CT does not show any large pulmonary emboli. Given acuity of symptoms that her postoperative patient will be admitted for observation. Will be admitted in consultation to urology. Undiagnosed new problem with uncertain prognosis? @ -No Drug Therapy requiring intensive monitoring for toxicity (Heparin, Nitro, Insulin, Cardizem)? @ -No Were any procedures done? @ -No Diagnosis/symptom? Acute, or Chronic, or Acute on Chronic? Uncomplicated (without systemic symptoms) or Complicated (systemic symptoms)? @ -Postoperative dyspnea Side effects of treatment? @ -No Exacerbation, Progression, or Severe Exacerbation? @ -No Poses a threat to life or bodily function? How? (Chest pain, [place], [place], pneumonia, PE, COPD, DKA, ARF, appy, cholecystitis, CVA, Diverticulitis, Homicidal, Suicidal, threat to staff... and all critical care pts) @ -yes - Lab Data Result diagrams: 12/30/22 09:19 12/30/22 09:19 Lab Results 12/30/22 12/30/22 12/30/22 Range/Units 09:19 09:19 09:19 WBC 24.5 H (3.8-10.6) k/uL RBC 4.28 L (4.30-5.90) m/uL Hgb 12.5 L (13.0-17.5) gm/dL Hct 38.0 L (39.0-53.0) % MCV 88.8 (80.0-100.0) fL MCH 29.1 (25.0-35.0) pg MCHC 32.8 (31.0-37.0) g/dL RDW 14.3 (11.5-15.5) % Plt Count 274 (150-450) k/uL MPV 7.8 Neutrophils % 90 % Lymphocytes % 4 % Monocytes % 5 % Eosinophils % 0 % Basophils % 0 % Neutrophils # 22.0 H (1.3-7.7) k/uL Lymphocytes # 1.0 (1.0-4.8) k/uL Monocytes # 1.3 H (0-1.0) k/uL Eosinophils # 0.0 (0-0.7) k/uL Basophils # 0.0 (0-0.2) k/uL PT 10.6 (9.0-12.0) sec INR 1.0 (<1.2) APTT 27.6 (22.0-30.0) sec Sodium 135 L (137-145) mmol/L Potassium 4.2 (3.5-5.1) mmol/L Chloride 99 (98-107) mmol/L Carbon Dioxide 22 (22-30) mmol/L Anion Gap 14 mmol/L BUN 17 (9-20) mg/dL Creatinine 1.16 (0.66-1.25) mg/dL Est GFR (CKD-EPI)AfAm 74 (>60 ml/min/1.73 sqM) Est GFR (CKD-EPI)NonAf 64 (>60 ml/min/1.73 sqM) Glucose 144 H (74-99) mg/dL Calcium 9.3 (8.4-10.2) mg/dL Troponin I (0.000-0.034) ng/mL NT-Pro-B Natriuret Pep 412 pg/mL Blood Type Blood Type Recheck Bld Type Recheck Status Antibody Screen Spec Expiration Date 12/30/22 12/30/22 Range/Units 09:19 09:19 WBC (3.8-10.6) k/uL RBC (4.30-5.90) m/uL Hgb (13.0-17.5) gm/dL Hct (39.0-53.0) % MCV (80.0-100.0) fL MCH (25.0-35.0) pg MCHC (31.0-37.0) g/dL RDW (11.5-15.5) % Plt Count (150-450) k/uL MPV Neutrophils % % Lymphocytes % % Monocytes % % Eosinophils % % Basophils % % Neutrophils # (1.3-7.7) k/uL Lymphocytes # (1.0-4.8) k/uL Monocytes # (0-1.0) k/uL Eosinophils # (0-0.7) k/uL Basophils # (0-0.2) k/uL PT (9.0-12.0) sec INR (<1.2) APTT (22.0-30.0) sec Sodium (137-145) mmol/L Potassium (3.5-5.1) mmol/L Chloride (98-107) mmol/L Carbon Dioxide (22-30) mmol/L Anion Gap mmol/L BUN (9-20) mg/dL Creatinine (0.66-1.25) mg/dL Est GFR (CKD-EPI)AfAm (>60 ml/min/1.73 sqM) Est GFR (CKD-EPI)NonAf (>60 ml/min/1.73 sqM) Glucose (74-99) mg/dL Calcium (8.4-10.2) mg/dL Troponin I 0.019 (0.000-0.034) ng/mL NT-Pro-B Natriuret Pep pg/mL Blood Type A Negative Blood Type Recheck A Neg Bld Type Recheck Status No Antibody Screen NEGATIVE Spec Expiration Date 01/02/20232318 Disposition Clinical Impression: Dyspnea Disposition: [facility] Condition: Fair Referrals: Marquis Kat [Primary Care Provider] - 1-2 days Decision Time: 12:24
[2022-12-30 10:20] LABS: Basophils % (A) 0 %; Eosinophils % (A) 0 %; HGB 12.5 gm/dL (13.0-17.5); Lymphocytes % (A) 4 %; MCH 29.1 pg (25.0-35.0); MCHC 32.8 g/dL (31.0-37.0); MCV 88.8 fL (80.0-100.0); Mean Platelet Volume 7.8; Monocytes # (A) 1.3 k/uL (0-1.0); Monocytes % (A) 5 %; Neutrophils % (A) 90 %; Platelet Count 274 k/uL (150-450); RBC 4.28 m/uL (4.30-5.90); RDW 14.3 % (11.5-15.5); WBC 24.5 k/uL (3.8-10.6)
--- NOTE | 2022-12-30 10:25 | XR ---
EXAMINATION TYPE: XR chest 2V DATE OF EXAM: 12/30/2022 COMPARISON: 04/17/2017 TECHNIQUE: PA and lateral views submitted. HISTORY: Shortness of breath FINDINGS: Limited inspiration with bilateral lower lobe infiltrate. No sizable pleural effusion or pneumothorax . No overt failure. Disseminated changes are seen. There is a stimulator lead overlying the thoracic spine. Emphysematous changes were noted. Small spur involving the distal right clavicle. IMPRESSION: 1. COPD with bilateral lower lobe infiltrate correlate for pneumonia.
[2022-12-30 10:33] LABS: African American GFR (CKD) 74 (>60 ml/min/1.73 sqM); Anion Gap 14 mmol/L; Blood Urea Nitrogen 17 mg/dL (9-20); Calcium 9.3 mg/dL (8.4-10.2); Carbon Dioxide 22 mmol/L (22-30); Chloride 99 mmol/L (98-107); Glucose 144 mg/dL (74-99); Non-African American GFR(CKD) 64 (>60 ml/min/1.73 sqM); Potassium 4.2 mmol/L (3.5-5.1); Sodium 135 mmol/L (137-145)
[2022-12-30 10:42] LABS: NT-Pro-B-Type Natriuretic Pept 412 pg/mL; Partial Thromboplastin Time 27.6 sec (22.0-30.0); Prothrombin Time 10.6 sec (9.0-12.0)
--- NOTE | 2022-12-30 11:22 | CT ---
EXAMINATION TYPE: CT angio chest DATE OF EXAM: 12/30/2022 COMPARISON: None HISTORY: Suspect PE CT DLP: 305.9 mGycm CONTRAST: CT chest with contrast and 3D reconstruction with MIP imaging is performed without and with IV Contra st, patient injected with 100 ml mL of Isovue 370. Contrast-enhanced CT of the chest was performed through the course of the pulmonary arteries with harriet g and mediastinal window settings submitted. 3D reconstruction with MIP imaging was also performed. PULMONARY ARTERIES: Contrast bolus timing is limiting. No evidence for large central embolus or loba r filling defect. More limited examination with regards to segmental and subsegmental branches. LUNGS: The lungs are clear and free of infiltrate. Basilar atelectasis and small effusions noted righ t greater than left. MEDIASTINUM: Thoracic aorta is of normal caliber. The heart is mildly enlarged. No evidence for me diastinal mass. No mediastinal lymph nodes greater than 1cm. HILAR STRUCTURES: No evidence for mass. No hilar lymph nodes greater than 1 cm. UPPER ABDOMEN: There appears to be free air within the abdomen posterior right upper quadrant see franko ge 121 and 119. There is also thickening and edematous appearance of the posterior right sided chest wall musculature which could be posttraumatic in nature or related to cellulitis. CT of the abdomen a nd pelvis is recommended for further evaluation. IMPRESSION: 1. Contrast bolus timing is limiting. No evidence for large central embolus or lobar filling defect. More limited examination with regards to segmental and subsegmental branches. 2. Small foci of free air seen within the posterior right upper quadrant adjacent to the adrenal glan d and liver. CT of the abdomen and pelvis is recommended unless there is history of recent surgical i ntervention. Correlate clinically.
[2022-12-30] MEDS ORDERED: AZITHROMYCIN 500 MG in SODIUM CHLORIDE 0.9% 250 ML IVPB STA (11:50)
[2022-12-30] MEDS ORDERED: cefTRIAXone IN SWFI 1,000 MG/10 ML SYRINGE IVP STA (11:50)
[2022-12-30] MEDS ORDERED: NALOXONE 0.4 MG/ML 1 ML VIAL IV PRN (12:13)
[2022-12-30] MEDS ORDERED: SODIUM CHLORIDE 0.9% 1,000 ML IV SCH (12:15)
--- NOTE | 2022-12-30 15:10 | P.GSCN ---
History of Present Illness Consult date: 12/30/22 Reason for Consult: a renal stone, status post right PCNL History of present illness: this is a 72-year-old male that underwent right sided PCNL by Dr Mcguire on 12/28/22. he was discharged home yesterday with the nephrostomy tube. After going home he started developing cough with hemoptysis and nausea and vomiting. He indicated his flank pain is tolerable. His having some intermittent gross hematuria but denies any dysuria or difficulty urinating. Nephrostomy tube is in place draining light red urine. on presentation he was tachycardic in the 120s. His hemoglobin is 12.5. Underwent a CT chest showed no evidence of a PE, or pneumothorax. chest x-ray showed a possible lower lobe pneumonia. Review of Systems - Constitutional Denies fever, Denies weight loss - Cardiovascular Denies chest pain, Denies shortness of breath - Respiratory Reports cough, Reports dyspnea - Gastrointestinal Reports nausea, Reports vomiting - Genitourinary Reports flank pain, Reports hematuria, Denies dysuria Past Medical History Past Medical History: Fibromyalgia, GERD/Reflux Additional Past Medical History / Comment(s): "chronic bronchitis", seasonal allergies History of Any Multi-Drug Resistant Organisms: None Reported Past Surgical History: Hernia Repair, Tonsillectomy Additional Past Surgical History / Comment(s): sinus surg.Kidney surgery. Past Anesthesia/Blood Transfusion Reactions: No Reported Reaction Past Psychological History: No Psychological Hx Reported Smoking Status: Never smoker Past Alcohol Use History: None Reported Past Drug Use History: None Reported - Past Family History Father Family Medical History: Cancer Medications and Allergies Home Medications Medication Instructions Recorded Confirmed Type Multivitamins, Thera [Multivitamin 1 tab PO DAILY 12/22/22 12/30/22 History (formulary)] Pregabalin 100 mg PO QID 12/22/22 12/30/22 History Ketorolac [Toradol] 10 mg PO Q6HR PRN #15 tab 12/29/22 12/30/22 Rx Allergies Allergy/AdvReac Type Severity Reaction Status Date / Time dicyclomine [From Bentyl] Allergy Rapid Verified 12/30/22 12:12 Heart Rate moxifloxacin [From Avelox] Allergy Anaphylaxis Verified 12/30/22 12:12 Penicillins Allergy Unknown Verified 12/30/22 12:12 Childhood Sulfa (Sulfonamide Allergy Unknown Verified 12/30/22 12:12 Antibiotics) Childhood bacitracin AdvReac skin Verified 12/30/22 12:12 [From Neosporin blisters ([id number])] neomycin AdvReac skin Verified 12/30/22 12:12 [From Neosporin blisters ([id number])] polymyxin B AdvReac skin Verified 12/30/22 12:12 [From Neosporin blisters ([id number])] Surgical - Exam Vital Signs Temp Pulse Resp BP Pulse Ox 98.7 F 122 H 24 128/80 93 L 12/30/22 08:44 12/30/22 08:44 12/30/22 08:44 12/30/22 08:44 12/30/22 08:44 - General no distress, moderate pain - Eyes normal ocular movement, no pale - ENT normal nares, normal mucosa - Respiratory normal expansion, normal respiratory effort - Abdomen Abdomen: soft, non tender - Psychiatric oriented to time, oriented to person, oriented to place Results - Labs 12/30/22 09:19 12/30/22 09:19 Abnormal Lab Results - Last 24 Hours (Table) 12/30/22 12/30/22 Range/Units 09:19 09:19 WBC 24.5 H (3.8-10.6) k/uL RBC 4.28 L (4.30-5.90) m/uL Hgb 12.5 L (13.0-17.5) gm/dL Hct 38.0 L (39.0-53.0) % Neutrophils # 22.0 H (1.3-7.7) k/uL Monocytes # 1.3 H (0-1.0) k/uL Sodium 135 L (137-145) mmol/L Glucose 144 H (74-99) mg/dL Diabetes panel 12/30/22 Range/Units 09:19 Sodium 135 L (137-145) mmol/L Potassium 4.2 (3.5-5.1) mmol/L Chloride 99 (98-107) mmol/L Carbon Dioxide 22 (22-30) mmol/L BUN 17 (9-20) mg/dL Creatinine 1.16 (0.66-1.25) mg/dL Glucose 144 H (74-99) mg/dL Calcium 9.3 (8.4-10.2) mg/dL Calcium panel 12/30/22 Range/Units 09:19 Calcium 9.3 (8.4-10.2) mg/dL Pituitary panel 12/30/22 Range/Units 09:19 Sodium 135 L (137-145) mmol/L Potassium 4.2 (3.5-5.1) mmol/L Chloride 99 (98-107) mmol/L Carbon Dioxide 22 (22-30) mmol/L BUN 17 (9-20) mg/dL Creatinine 1.16 (0.66-1.25) mg/dL Glucose 144 H (74-99) mg/dL Calcium 9.3 (8.4-10.2) mg/dL Adrenal panel 12/30/22 Range/Units 09:19 Sodium 135 L (137-145) mmol/L Potassium 4.2 (3.5-5.1) mmol/L Chloride 99 (98-107) mmol/L Carbon Dioxide 22 (22-30) mmol/L BUN 17 (9-20) mg/dL Creatinine 1.16 (0.66-1.25) mg/dL Glucose 144 H (74-99) mg/dL Calcium 9.3 (8.4-10.2) mg/dL Assessment and Plan Assessment: 72-year-old male status post right percutaneous nephrolithotomy with Dr. Mcguire. Admitted to the hospital with cough nausea, and hemoptysis. I reviewed his CAT scan of the chest, the air around the kidney is expected given his recent renal surgery. -keep nephrostomy tube in place
[2022-12-30] MEDS ORDERED: ETODOLAC 400 MG TAB PO PRN (15:42)
[2022-12-30] MEDS ORDERED: HYDROcodone/APAP 5-325MG 1 EACH TAB PO STA (17:51)
[2022-12-30] MEDS ORDERED: ONDANSETRON 4 MG/2 ML VIAL IVP STA (17:51)
[2022-12-30] MEDS: PREGABALIN 100 MG CAP PO SCH ×2 (19:14→22:57)
--- NOTE | 2022-12-30 22:00 | P.HPIM ---
History of Present Illness H&P Date: 12/30/22 Chief Complaint: Hemoptysis 72-year-old male 2 days ago patient had a urologic procedure. Patient had right kidney nephrostomy and lithotomy. Patient states that yesterday he had episode of hematemesis, hemoptysis. He also has dull chest pain is worse with deep inspiration. Denies any history of blood clots. Denies any lower extremity pain. Patient does have abdominal pain which she is told to expect after surgery. Denies any fever or constitutional symptoms. Chest x-ray completed in ED reveals bilateral lower lobe infiltrates; CTA of the chest completed reveals bilateral pleural effusions without any large pulmonary embolism Lab work reveals a WBC of 24.5, hemoglobin of 12.5 and platelet count of 274, d- dimer of 5.80, sodium 135, potassium 4.2, BUN/creatinine of 17/1.16, blood glucose of 144 and troponin less than 0.019, BNP of 412 Review of Systems REVIEW OF SYSTEMS: CONSTITUTIONAL: No fever, no malaise, no fatigue. HEENT: No recent visual problems or hearing problems. Denied any sore throat. CARDIOVASCULAR: No chest pain, orthopnea, PND, no palpitations, no syncope. PULMONARY: No shortness of breath, no cough, no hemoptysis. GASTROINTESTINAL: No diarrhea, no nausea, no vomiting, no abdominal pain. NEUROLOGICAL: No headaches, no weakness, no numbness. HEMATOLOGICAL: Denies any bleeding or petechiae. GENITOURINARY: Denies any burning micturition, frequency, or urgency. MUSCULOSKELETAL/RHEUMATOLOGICAL: Denies any joint pain, swelling, or any muscle pain. ENDOCRINE: Denies any polyuria or polydipsia. The rest of the 14-point review of systems is negative. Past Medical History Past Medical History: Fibromyalgia, GERD/Reflux Additional Past Medical History / Comment(s): "chronic bronchitis", seasonal al lergies History of Any Multi-Drug Resistant Organisms: None Reported Past Surgical History: Hernia Repair, Tonsillectomy Additional Past Surgical History / Comment(s): sinus surg.Kidney surgery. Past Anesthesia/Blood Transfusion Reactions: No Reported Reaction Past Psychological History: No Psychological Hx Reported Smoking Status: Never smoker Past Alcohol Use History: None Reported Past Drug Use History: None Reported - Past Family History Father Family Medical History: Cancer Medications and Allergies Home Medications Medication Instructions Recorded Confirmed Type Multivitamins, Thera [Multivitamin 1 tab PO DAILY 12/22/22 12/30/22 History (formulary)] Pregabalin 100 mg PO QID 12/22/22 12/30/22 History Ketorolac [Toradol] 10 mg PO Q6HR PRN #15 tab 12/29/22 12/30/22 Rx Allergies Allergy/AdvReac Type Severity Reaction Status Date / Time dicyclomine [From Bentyl] Allergy Rapid Verified 12/30/22 12:12 Heart Rate moxifloxacin [From Avelox] Allergy Anaphylaxis Verified 12/30/22 12:12 Penicillins Allergy Unknown Verified 12/30/22 12:12 Childhood Sulfa (Sulfonamide Allergy Unknown Verified 12/30/22 12:12 Antibiotics) Childhood bacitracin AdvReac skin Verified 12/30/22 12:12 [From Neosporin blisters ([id number])] neomycin AdvReac skin Verified 12/30/22 12:12 [From Neosporin blisters ([id number])] polymyxin B AdvReac skin Verified 12/30/22 12:12 [From Neosporin blisters ([id number])] Physical Exam Vitals: Vital Signs Temp Pulse Resp BP Pulse Ox 12/30/22 12:30 98.3 F 105 H 22 147/76 96 12/30/22 08:44 98.7 F 122 H 24 128/80 93 L Intake and Output 12/30/22 12/30/22 12/30/22 06:59 14:59 22:59 Output Total 125 Balance -125 Output: Urine 125 Other: Weight 81.647 kg PHYSICAL EXAMINATION: GENERAL: The patient is alert and oriented x3, not in any acute distress. Well developed, well nourished. HEENT: Pupils are round and equally reacting to light. EOMI. No scleral icterus. No conjunctival pallor. Normocephalic, atraumatic. No pharyngeal erythema. No thyromegaly. CARDIOVASCULAR: S1 and S2 present. No murmurs, rubs, or gallops. PULMONARY: Chest is clear to auscultation, no wheezing or crackles. ABDOMEN: Soft, nontender, nondistended, normoactive bowel sounds. No palpable organomegaly. MUSCULOSKELETAL: No joint swelling or deformity. EXTREMITIES: No cyanosis, clubbing, or pedal edema. NEUROLOGICAL: Gross neurological examination did not reveal any focal deficits. SKIN: No rashes. Results CBC & Chem 7: 12/30/22 09:19 12/30/22 09:19 Labs: Abnormal Lab Results - Last 24 Hours (Table) 12/30/22 12/30/22 Range/Units 09:19 09:19 WBC 24.5 H (3.8-10.6) k/uL RBC 4.28 L (4.30-5.90) m/uL Hgb 12.5 L (13.0-17.5) gm/dL Hct 38.0 L (39.0-53.0) % Neutrophils # 22.0 H (1.3-7.7) k/uL Monocytes # 1.3 H (0-1.0) k/uL Sodium 135 L (137-145) mmol/L Glucose 144 H (74-99) mg/dL Assessment and Plan Assessment: 1. Hemoptysis; bilateral pneumonia/pleural effusion - Patient has been placed on IV antibiotics in form of Rocephin and azithromycin; bronchodilator nebulizer treatments - We will monitor CBC, CRP and pro-calcitonin - Consult pulmonary for further recommendations 2. Nephrolithiasis; status post right PCNL on 12/28/2022; patient was discharged home with nephrostomy tubes - Patient continues to have intermittent gross hematuria; no other urinary complaints - We will consult urology for follow-up and any further recommendations 3. Mild AK I; slow IV fluid hydration with normal saline at a rate of 75 mL an hour; monitor strict MARK's, daily weights, renal function and electrolytes; avoid nephrotoxins and hypotension 5. Leukocytosis/sepsis; likely related to bilateral pneumonia; we will monitor CBC and trend WBC count 6. Elevated d-dimer; CT of the chest is negative for PE 7. Peripheral neuropathy; Lyrica 100 mg 4 times a day DVT prophylaxis; SCDs only given her hemoptysis CODE STATUS; full code
[2022-12-31] MEDS: HYDROcodone/APAP 5-325MG 1 EACH TAB PO PRN ×3 (06:32→21:40)
[2022-12-31 09:43] LABS: BUN/Creat Ratio 26.57 Ratio (12.00-20.00); Blood Urea Nitrogen 18.6 mg/dL (9.0-27.0); Calcium 8.9 mg/dL (8.7-10.3); Carbon Dioxide 21.5 mmol/L (21.6-31.8); Chloride 102 mmol/L (96-109); Glucose 124 mg/dL (70-110); Potassium 3.9 mmol/L (3.5-5.5); Sodium 138 mmol/L (135-145)
[2022-12-31 09:57] LABS: HCT 34.2 % (39.6-50.0); HGB 11.3 d/dL (13.0-17.0); MCH 28.5 pg (27.0-32.0); MCV 86.1 FL (80.0-97.0); NRBC Per 100 WBC 0 X 10*3/uL (0.00-0.01); Platelet Count 310 X 10*3/uL (140-440); RBC 3.97 X 10*6/uL (4.40-5.60); WBC 21.72 X 10*3/uL (4.50-10.00)
[2022-12-31] MEDS: PREGABALIN 100 MG CAP PO SCH ×4 (10:01→21:40)
[2022-12-31] MEDS: MULTIVITAMINS, THERA 1 EACH TAB PO SCH (10:01)
[2022-12-31] MEDS: SODIUM CHLORIDE 0.9% 1,000 ML IV SCH ×2 (10:08→17:47)
[2022-12-31 10:23] LABS: Basophils # (A) 0.06 X 10*3/uL (0.00-0.10); Basophils % (A) 0.3 %; Eosinophils # (A) 0.05 X 10*3/uL (0.04-0.35); Eosinophils % (A) 0.2 %; Lymphocytes # (A) 1.67 X 10*3/uL (0.90-5.00); Lymphocytes % (A) 7.7 %; Monocytes # (A) 1.72 X 10*3/uL (0.20-1.00); Monocytes % (A) 7.9 %; Neutrophils # (A) 18.05 X 10*3/uL (1.80-7.70); Neutrophils % (A) 83.1 %; RBC Morphology Normal (Normal)
--- NOTE | 2022-12-31 10:27 | P.PN ---
Subjective Progress Note Date: 12/31/22 Complaining of right lower extremity pain this morning. Indicated still having nausea denies any flank pain. Nephrostomy tube is in place draining blood- tinged urine Objective - Vital Signs Vital signs: Vital Signs Temp 98.1 F 12/31/22 07:00 Pulse 124 H 12/31/22 07:00 Resp 16 12/31/22 07:00 BP 156/85 12/31/22 07:00 Pulse Ox 93 L 12/31/22 07:00 FiO2 Intake & Output 12/30/22 12/31/22 12/31/22 18:59 06:59 18:59 Output Total 125 500 Balance -125 -500 Weight 81.647 kg 81.647 kg Output: Drainage 200 Right Lateral Back 200 Urine 125 150 Other 150 Other: # Voids 1 - Constitutional General appearance: Present: no acute distress - Gastrointestinal General gastrointestinal: Present: soft. Absent: distended, tenderness - Psychiatric Psychiatric: Present: A&O x's 3 - Labs CBC & Chem 7: 12/31/22 05:24 12/31/22 05:24 Labs: Abnormal Lab Results - Last 24 Hours (Table) 12/30/22 12/30/22 12/30/22 Range/Units 09:19 20:35 20:35 WBC (4.50-10.00) X 10*3/uL RBC (4.40-5.60) X 10*6/uL Hgb (13.0-17.0) d/dL Hct (39.6-50.0) % Neutrophils # (1.80-7.70) X 10*3/uL Monocytes # (0.20-1.00) X 10*3/uL D-Dimer 5.80 H (<0.60) mg/L FEU Sodium 135 L (137-145) mmol/L Carbon Dioxide (21.6-31.8) mmol/L Anion Gap (4.00-12.00) mmol/L BUN/Creatinine Ratio (12.00-20.00) Ratio Glucose 144 H (74-99) mg/dL Procalcitonin 0.29 H (0.02-0.09) ng/mL 12/31/22 12/31/22 Range/Units 05:24 05:24 WBC 21.72 H (4.50-10.00) X 10*3/uL RBC 3.97 L (4.40-5.60) X 10*6/uL Hgb 11.3 L (13.0-17.0) d/dL Hct 34.2 L (39.6-50.0) % Neutrophils # 18.05 H (1.80-7.70) X 10*3/uL Monocytes # 1.72 H (0.20-1.00) X 10*3/uL D-Dimer (<0.60) mg/L FEU Sodium (137-145) mmol/L Carbon Dioxide 21.5 L (21.6-31.8) mmol/L Anion Gap 14.50 H (4.00-12.00) mmol/L BUN/Creatinine Ratio 26.57 H (12.00-20.00) Ratio Glucose 124 H (74-99) mg/dL Procalcitonin (0.02-0.09) ng/mL Assessment and Plan Assessment: 72-year-old male status post right percutaneous nephrolithotomy with Dr. Mcguire. Admitted to the hospital with cough nausea, and hemoptysis. I reviewed his CT scan of the chest, the air around the kidney is expected given his recent renal surgery. -keep nephrostomy tube in place -F/U on Venous duplex, if there is evidence of a DVT okay for anticoagulation from urology standpoint
--- NOTE | 2022-12-31 12:25 | P.CNPUL ---
History of Present Illness Consult date: 12/31/22 Requesting physician: Meliton Jones Reason for consult: dyspnea, abnormal CXR/CT Chief complaint: Coughing up blood, emesis with blood History of present illness: This is a very pleasant 72-year-old male patient with a known history of fibromyalgia, gastroesophageal reflux disease. He also has a history of kidney stones including a 2 cm right renal pelvic stone with obstruction. He was brou ght in on 12/28/2022 electively for a Alan be and placement of occluding balloon catheter on the right with a percutaneous nephrostomy. He was discharged home the next day. He presented to the emergency room here on 12/30/2022 with complaints of coughing up blood as well as vomiting blood. He also had some dull chest pain worse with deep inspiration. His x-ray showed evidence of COPD with bilateral lower lobe infiltrates. CT angiogram was limited due to bolus timing. There is no evidence of large central emboli or local filling defects. Limitations regarding segmental and subsegmental branches. There is a small foci of free air seen within the posterior right upper quadrant adjacent to the adrenal gland and liver. White count 21.7. Hemoglobin 11.3. D-dimer 5.80. Sodium 138. Potassium 3.9. Bicarb 21. BUN 19. Creatinine 0.7. Glucose 124. Pro-calcitonin 0.29. He is seen today in consultation on the regular medical floor. He is currently resting fairly comfortably in bed. He is awake and alert in no acute distress. Maintaining good O2 saturations in the 90s on room air. He is having some right lower extremity pain. Nephrostomy tube is in place on the right with blood-tinged urine. Review of Systems REVIEW OF SYSTEMS: CONSTITUTIONAL: Denies any recent significant weight loss or weight gain. EYES: Denies change in vision. EARS, NOSE, MOUTH, THROAT: Denies headaches, denies sore throat. CARDIOVASCULAR: Denies chest pain, palpitations or syncopal episodes. RESPIRATORY: Positive for hemoptysis. GASTROINTESTINAL: Positive for hematemesis GENITOURINARY: Positive for hematuria, denies infections. MUSKULOSKELETAL: Denies pain, denies swelling. INTEGUMENTARY: Denies rash, denies eczema. NEUROLOGICAL: Denies recent memory loss, no recent seizure activity. PSYCHIATRIC: Denies anxiety, denies depression. HEMATOLOGIC/LYMPHATIC: Denies anemia, denies enlarged lymph nodes. Past Medical History Past Medical History: Fibromyalgia, GERD/Reflux Additional Past Medical History / Comment(s): "chronic bronchitis", seasonal allergies History of Any Multi-Drug Resistant Organisms: None Reported Past Surgical History: Hernia Repair, Tonsillectomy Additional Past Surgical History / Comment(s): sinus surg.Kidney surgery. Past Anesthesia/Blood Transfusion Reactions: No Reported Reaction Past Psychological History: No Psychological Hx Reported Smoking Status: Former smoker Past Alcohol Use History: None Reported Additional Past Alcohol Use History / Comment(s): 1ppd >40 yrs. Past Drug Use History: None Reported - Past Family History Father Family Medical History: Cancer Medications and Allergies Home Medications Medication Instructions Recorded Confirmed Type Multivitamins, Thera [Multivitamin 1 tab PO DAILY 12/22/22 12/30/22 History (formulary)] Pregabalin 100 mg PO QID 12/22/22 12/30/22 History Ketorolac [Toradol] 10 mg PO Q6HR PRN #15 tab 12/29/22 12/30/22 Rx Allergies Allergy/AdvReac Type Severity Reaction Status Date / Time dicyclomine [From Bentyl] Allergy Rapid Verified 12/30/22 12:12 Heart Rate moxifloxacin [From Avelox] Allergy Anaphylaxis Verified 12/30/22 12:12 Penicillins Allergy Unknown Verified 12/30/22 12:12 Childhood Sulfa (Sulfonamide Allergy Unknown Verified 12/30/22 12:12 Antibiotics) Childhood bacitracin AdvReac skin Verified 12/30/22 12:12 [From Neosporin blisters ([id number])] neomycin AdvReac skin Verified 12/30/22 12:12 [From Neosporin blisters ([id number])] polymyxin B AdvReac skin Verified 12/30/22 12:12 [From Neosporin blisters ([id number])] Physical Exam Vitals: Vital Signs Temp Pulse Pulse Resp BP BP Pulse Ox 12/31/22 07:00 98.1 F 124 H 16 156/85 93 L 12/31/22 02:11 98.4 F 89 15 129/74 97 12/31/22 02:00 15 12/30/22 22:25 98.3 F 88 15 148/88 94 L 12/30/22 21:34 9 L 18 136/76 93 L 12/30/22 19:33 91 18 139/80 96 12/30/22 18:30 98.4 F 87 17 147/88 96 12/30/22 18:00 102 H 20 136/83 96 12/30/22 17:30 108 H 18 152/74 95 12/30/22 17:00 101 H 16 156/84 96 12/30/22 16:30 89 17 145/91 96 12/30/22 16:00 92 18 145/85 95 12/30/22 15:30 95 17 146/93 94 L 12/30/22 15:00 90 17 142/84 94 L 12/30/22 14:30 96 18 124/62 92 L 12/30/22 14:00 100 20 141/79 92 L 12/30/22 13:00 99 19 127/82 91 L 12/30/22 12:30 98.3 F 105 H 22 147/76 96 Intake and Output 12/30/22 12/31/22 12/31/22 22:59 06:59 14:59 Output Total 150 350 Balance -150 -350 Output: Drainage 200 Right Lateral Back 200 Urine 150 Other 150 Other: # Voids 1 Weight 81.647 kg GENERAL EXAM: Alert, pleasant 72-year-old male, on room air, fairly comfortable in no apparent distress. HEAD: Normocephalic. EYES: Normal reaction of pupils, equal size. NOSE: Clear with pink turbinates. THROAT: No erythema or exudates. NECK: No masses, no JVD. CHEST: No chest wall deformity. LUNGS: Equal air entry with few scattered rhonchi. CVS: S1 and S2 normal with no audible murmur, regular rhythm. ABDOMEN: Right nephrostomy tube in place. No hepatosplenomegaly, normal bowel sounds, no guarding or rigidity. SPINE: No scoliosis or deformity SKIN: No rashes CENTRAL NERVOUS SYSTEM: No focal deficits, tone is normal in all 4 extremities. EXTREMITIES: There is no peripheral edema. No clubbing, no cyanosis. Per ipheral pulses are intact. Results - Laboratory Findings CBC and BMP: 12/31/22 05:24 12/31/22 05:24 PT/INR, D-dimer PT 10.6 sec (9.0-12.0) 12/30/22 09:19 INR 1.0 (<1.2) 12/30/22 09:19 D-Dimer 5.80 mg/L FEU (<0.60) H 12/30/22 20:35 Abnormal lab findings: Abnormal Labs 12/30/22 12/30/22 12/30/22 09:19 09:19 20:35 WBC 24.5 H RBC 4.28 L Hgb 12.5 L Hct 38.0 L Neutrophils # 22.0 H Monocytes # 1.3 H D-Dimer Sodium 135 L Carbon Dioxide Anion Gap BUN/Creatinine Ratio Glucose 144 H Procalcitonin 0.29 H 12/30/22 12/31/22 12/31/22 20:35 05:24 05:24 WBC 21.72 H RBC 3.97 L Hgb 11.3 L Hct 34.2 L Neutrophils # 18.05 H Monocytes # 1.72 H D-Dimer 5.80 H Sodium Carbon Dioxide 21.5 L Anion Gap 14.50 H BUN/Creatinine Ratio 26.57 H Glucose 124 H Procalcitonin - Diagnostic Findings Chest x-ray: image reviewed Assessment and Plan Assessment: Hemoptysis and possible hematemesis unclear etiology. CT angiogram shows no large central emboli. Limited exam regarding segmental and subsegmental branches. Lungs are clear infiltrate. There is some basilar atelectasis and small effusions right greater than left ear d-dimer 5.80. Pro calcitonin 0.29. Continue Rocephin Right lower extremity pain, Doppler pending Nephrolithiasis status post right percutaneous nephrostolithotomy nephrostomy tube placement on 12/28/2022 History of fibromyalgia History of gastroesophageal reflux disease Plan: The patient was seen and evaluated CT angiogram, chest x-ray, labs and medications reviewed Obtain a venous Doppler of the right lower extremity Initiate normal saline at 100 ML's per hour Continue ceftriaxone for now Stable and on room air We will continue to follow and make further recommendations based on his clinical status I have personally seen and examined the patient, performed the documentation and the assessment and plan as written. Number of minutes spent on the visit: 20.
[2022-12-31] MEDS: ONDANSETRON 4 MG/2 ML VIAL IVP PRN (12:47)
--- NOTE | 2022-12-31 15:35 | US ---
EXAMINATION TYPE: US venous doppler duplex LE RT DATE OF EXAM: 12/31/2022 9:25 AM Exam done portable COMPARISON: NONE CLINICAL INDICATION: Male, 72 years old with history of RLE pain, chest pain; Right leg pain SIDE PERFORMED: Right TECHNIQUE: The lower extremity deep venous system is examined utilizing real time linear array sonog adam with graded compression, doppler sonography and color-flow sonography. VESSELS IMAGED: Common Femoral Vein Deep Femoral Vein Greater Saphenous Vein * Femoral Vein Popliteal Vein Small Saphenous Vein * Proximal Calf Veins (* superficial vessels) Right Leg: Appears negative for DVT IMPRESSION: Grayscale, color doppler, spectral doppler imaging performed of the deep veins of the lo wer extremities. There is normal flow, compressibility, vascular waveforms.
--- NOTE | 2022-12-31 18:34 | XR ---
EXAMINATION TYPE: XR abdomen 2V DATE OF EXAM: 12/31/2022 6:26 PM CLINICAL INDICATION:Male, 72 years old with history of distention/pain. COMPARISON: None. TECHNIQUE: Two views of the abdomen were obtained. FINDINGS: The colon imagers, air-filled loops throughout. The colon measures 5.5 cm in transverse dim ension, which is at the upper limit of normal. Small bowel loops are prominent measuring 3. One centi meters in transverse dimension. There is no evidence for organomegaly or pneumoperitoneum. Right hip prosthesis is identified. Spina l pain stimulator is present. Right abdominal pigtail catheter is present. No abnormal calcification s are present. IMPRESSION: 1. Prominent air-filled loops of small bowel and colon. 2. Right abdominal pigtail catheter.
--- NOTE | 2022-12-31 20:30 | P.PN ---
Subjective Progress Note Date: 12/31/22 72-year-old male 2 days ago patient had a urologic procedure. Patient had right kidney nephrostomy and lithotomy. Patient states that yesterday he had episode of hematemesis, hemoptysis. He also has dull chest pain is worse with deep inspiration. Denies any history of blood clots. Denies any lower extremity pain. Patient does have abdominal pain which she is told to expect after surgery. Denies any fever or constitutional symptoms. Chest x-ray completed in ED reveals bilateral lower lobe infiltrates; CTA of the chest completed reveals bilateral pleural effusions without any large pulmonary embolism Lab work reveals a WBC of 24.5, hemoglobin of 12.5 and platelet count of 274, d- dimer of 5.80, sodium 135, potassium 4.2, BUN/creatinine of 17/1.16, blood glucose of 144 and troponin less than 0.019, BNP of 412 Objective - Vital Signs Vital signs: Vital Signs Temp 98.3 F 12/31/22 15:00 Pulse 86 12/31/22 15:00 Resp 20 12/31/22 15:00 BP 138/80 12/31/22 15:00 Pulse Ox 93 L 12/31/22 15:00 FiO2 Intake & Output 12/30/22 12/31/22 12/31/22 18:59 06:59 18:59 Intake Total 237 Output Total 125 500 Balance -125 -500 237 Weight 81.647 kg 81.647 kg Intake: Oral 237 Output: Drainage 200 Right Lateral Back 200 Urine 125 150 Other 150 Other: # Voids 1 - Exam GENERAL: The patient is alert and oriented x3, not in any acute distress. Well developed, well nourished. HEENT: Pupils are round and equally reacting to light. EOMI. No scleral icterus. No conjunctival pallor. Normocephalic, atraumatic. No pharyngeal erythema. No thyromegaly. CARDIOVASCULAR: S1 and S2 present. No murmurs, rubs, or gallops. PULMONARY: Chest is clear to auscultation, no wheezing or crackles. ABDOMEN: Soft, nontender, nondistended, normoactive bowel sounds. No palpable organomegaly. MUSCULOSKELETAL: No joint swelling or deformity. EXTREMITIES: No cyanosis, clubbing, or pedal edema. NEUROLOGICAL: Gross neurological examination did not reveal any focal deficits. SKIN: No rashes. - Labs CBC & Chem 7: 12/31/22 05:24 12/31/22 05:24 Labs: Abnormal Lab Results - Last 24 Hours (Table) 12/30/22 12/30/22 12/31/22 Range/Units 20:35 20:35 05:24 WBC 21.72 H (4.50-10.00) X 10*3/uL RBC 3.97 L (4.40-5.60) X 10*6/uL Hgb 11.3 L (13.0-17.0) d/dL Hct 34.2 L (39.6-50.0) % Neutrophils # 18.05 H (1.80-7.70) X 10*3/uL Monocytes # 1.72 H (0.20-1.00) X 10*3/uL D-Dimer 5.80 H (<0.60) mg/L FEU Carbon Dioxide (21.6-31.8) mmol/L Anion Gap (4.00-12.00) mmol/L BUN/Creatinine Ratio (12.00-20.00) Ratio Glucose (70-110) mg/dL Procalcitonin 0.29 H (0.02-0.09) ng/mL 12/31/22 Range/Units 05:24 WBC (4.50-10.00) X 10*3/uL RBC (4.40-5.60) X 10*6/uL Hgb (13.0-17.0) d/dL Hct (39.6-50.0) % Neutrophils # (1.80-7.70) X 10*3/uL Monocytes # (0.20-1.00) X 10*3/uL D-Dimer (<0.60) mg/L FEU Carbon Dioxide 21.5 L (21.6-31.8) mmol/L Anion Gap 14.50 H (4.00-12.00) mmol/L BUN/Creatinine Ratio 26.57 H (12.00-20.00) Ratio Glucose 124 H (70-110) mg/dL Procalcitonin (0.02-0.09) ng/mL Assessment and Plan Assessment: 1. Hemoptysis; bilateral pneumonia/pleural effusion - Patient has been placed on IV antibiotics in form of Rocephin and azithromycin; bronchodilator nebulizer treatments - We will monitor CBC, CRP and pro-calcitonin - Consult pulmonary for further recommendations 2. Nephrolithiasis; status post right PCNL on 12/28/2022; patient was discharged home with nephrostomy tubes - Patient continues to have intermittent gross hematuria; no other urinary complaints - We will consult urology for follow-up and any further recommendations 3. Mild AK I; slow IV fluid hydration with normal saline at a rate of 75 mL an hour; monitor strict MARK's, daily weights, renal function and electrolytes; avoid nephrotoxins and hypotension 5. Leukocytosis/sepsis; likely related to bilateral pneumonia; we will monitor CBC and trend WBC count 6. Elevated d-dimer; CT of the chest is negative for PE 7. Peripheral neuropathy; Lyrica 100 mg 4 times a day DVT prophylaxis; SCDs only given her hemoptysis CODE STATUS; full code
[2023-01-01] MEDS: ONDANSETRON 4 MG/2 ML VIAL IVP PRN (03:18)
[2023-01-01] MEDS: HYDROcodone/APAP 5-325MG 1 EACH TAB PO PRN ×2 (06:24→17:06)
[2023-01-01] MEDS: SODIUM CHLORIDE 0.9% 1,000 ML IV SCH ×2 (06:25→12:41)
[2023-01-01] MEDS: PREGABALIN 100 MG CAP PO SCH ×4 (08:37→22:04)
[2023-01-01] MEDS: MULTIVITAMINS, THERA 1 EACH TAB PO SCH (08:37)
[2023-01-01 09:05] LABS: Basophils # (A) 0.07 X 10*3/uL (0.00-0.10); Basophils % (A) 0.4 %; Eosinophils # (A) 0.24 X 10*3/uL (0.04-0.35); Eosinophils % (A) 1.4 %; HCT 36.2 % (39.6-50.0); HGB 11.7 d/dL (13.0-17.0); Lymphocytes # (A) 1.94 X 10*3/uL (0.90-5.00); Lymphocytes % (A) 10.9 %; MCH 28.6 pg (27.0-32.0); MCHC 32.3 d/dL (32.0-37.0); MCV 88.5 FL (80.0-97.0); Mean Platelet Volume 9.7 FL (9.5-12.2); NRBC Per 100 WBC 0 X 10*3/uL (0.00-0.01); Neutrophils # (A) 13.82 X 10*3/uL (1.80-7.70); Neutrophils % (A) 77.7 %; Platelet Count 363 X 10*3/uL (140-440); RBC 4.09 X 10*6/uL (4.40-5.60); RDW 14.2 % (11.5-14.5); WBC 17.77 X 10*3/uL (4.50-10.00)
--- NOTE | 2023-01-01 09:11 | P.PN ---
Subjective No acute overnight event, indicated nausea resolved. Venous Duplex yesterday showed no DVT. WBC down to 17 Objective - Vital Signs Vital signs: Vital Signs Temp 97.6 F 01/01/23 07:00 Pulse 88 01/01/23 07:00 Resp 16 01/01/23 07:00 BP 172/91 01/01/23 07:00 Pulse Ox 93 L 01/01/23 07:00 FiO2 Intake & Output 12/31/22 01/01/23 01/01/23 18:59 06:59 18:59 Intake Total 237 Output Total 575 Balance 237 -575 Intake: Oral 237 Output: Drainage 200 Right Lateral Back 200 Urine 375 Other: # Voids 2 - Constitutional General appearance: Present: no acute distress - Gastrointestinal General gastrointestinal: Present: soft. Absent: distended, tenderness - Psychiatric Psychiatric: Present: A&O x's 3 - Labs CBC & Chem 7: 01/01/23 05:19 12/31/22 05:24 Labs: Abnormal Lab Results - Last 24 Hours (Table) 12/31/22 12/31/22 01/01/23 Range/Units 05:24 05:24 05:19 WBC 21.72 H 17.77 H (4.50-10.00) X 10*3/uL RBC 3.97 L 4.09 L (4.40-5.60) X 10*6/uL Hgb 11.3 L 11.7 L (13.0-17.0) d/dL Hct 34.2 L 36.2 L (39.6-50.0) % Neutrophils # 18.05 H 13.82 H (1.80-7.70) X 10*3/uL Monocytes # 1.72 H 1.60 H (0.20-1.00) X 10*3/uL Carbon Dioxide 21.5 L (21.6-31.8) mmol/L Anion Gap 14.50 H (4.00-12.00) mmol/L BUN/Creatinine Ratio 26.57 H (12.00-20.00) Ratio Glucose 124 H (70-110) mg/dL Assessment and Plan Assessment: 72-year-old male status post right percutaneous nephrolithotomy with Dr. Mcguire. Admitted to the hospital with cough nausea, and hemoptysis. I reviewed his CT scan of the chest, the air around the kidney is expected given his recent renal surgery. -keep nephrostomy tube in place -From Urology standpoint he is stable for discharge, can follow-up this upcoming week with Dr. Mcguire
[2023-01-01 09:12] LABS: BUN/Creat Ratio 28.43 Ratio (12.00-20.00); Blood Urea Nitrogen 19.9 mg/dL (9.0-27.0); Calcium 8.5 mg/dL (8.7-10.3); Chloride 105 mmol/L (96-109); Glucose 99 mg/dL (70-110); Potassium 4.4 mmol/L (3.5-5.5); Sodium 138 mmol/L (135-145)
[2023-01-01] MEDS ORDERED: MORPHINE SULFATE 2 MG/ML SYRINGE IVP STA (09:19)
--- NOTE | 2023-01-01 12:26 | P.PN ---
Subjective Progress Note Date: 01/01/23 This is a very pleasant 72-year-old male patient with a known history of fibromyalgia, gastroesophageal reflux disease. He also has a history of kidney stones including a 2 cm right renal pelvic stone with obstruction. He was brought in on 12/28/2022 electively for a Alan be and placement of occluding balloon catheter on the right with a percutaneous nephrostomy. He was discharged home the next day. He presented to the emergency room here on 12/30/2022 with complaints of coughing up blood as well as vomiting blood. He also had some dull chest pain worse with deep inspiration. His x-ray showed evidence of COPD with bilateral lower lobe infiltrates. CT angiogram was limited due to bolus timing. There is no evidence of large central emboli or local filling defects. Limitations regarding segmental and subsegmental branches. There is a small foci of free air seen within the posterior right upper quadrant adjacent to the adrenal gland and liver. White count 21.7. Hemoglobin 11.3. D-dimer 5.80. Sodium 138. Potassium 3.9. Bicarb 21. BUN 19. Creatinine 0.7. Glucose 124. Pro-calcitonin 0.29. He is seen today in consultation on the regular medical floor. He is currently resting fairly comfortably in bed. He is awake and alert in no acute distress. Maintaining good O2 saturations in the 90s on room air. He is having some right lower extremity pain. Nephrostomy tube is in place on the right with blood-tinged urine. The patient is seen today 01/01/2023 in follow-up on the regular medical floor. He is currently sitting up in bed. Awake and alert in no acute distress. Doppler of the lower extremities revealed ruled out DVT. X-ray of the abdomen yesterday revealed prominent air-fluid loops of small bowel and colon. Right abdominal pigtail catheter in place. No evidence of organomegaly or pneumoperitoneum. White count 17.7. Hemoglobin 11.7. Platelets 363. Sodium 138. Potassium 4.4. Bicarb 22. BUN 20. Creatinine 0.7. Glucose 90. Remains on normal saline at 100 ML's per hour. Antibiotics in the form of ceftriaxone. Objective - Vital Signs Vital signs: Vital Signs Temp 97.6 F 01/01/23 07:00 Pulse 66 01/01/23 09:00 Resp 16 01/01/23 07:00 BP 151/78 01/01/23 09:00 Pulse Ox 95 01/01/23 09:00 FiO2 Intake & Output 12/31/22 01/01/23 01/01/23 18:59 06:59 18:59 Intake Total 237 120 Output Total 575 Balance 237 -575 120 Intake: Oral 237 120 Output: Drainage 200 Right Lateral Back 200 Urine 375 Other: # Voids 2 - Exam GENERAL EXAM: Alert, 72-year-old male, comfortable in no apparent distress. HEAD: Normocephalic. EYES: Normal reaction of pupils, equal size. NOSE: Clear with pink turbinates. THROAT: No erythema or exudates. NECK: No masses, no JVD. CHEST: No chest wall deformity. LUNGS: Equal air entry with few scattered rhonchi. CVS: S1 and S2 normal with no audible murmur, regular rhythm. ABDOMEN: Right nephrostomy tube in place. No hepatosplenomegaly, normal bowel sounds, no guarding or rigidity. SPINE: No scoliosis or deformity SKIN: No rashes CENTRAL NERVOUS SYSTEM: No focal deficits, tone is normal in all 4 extremities. EXTREMITIES: There is no peripheral edema. No clubbing, no cyanosis. Peripheral pulses are intact. - Labs CBC & Chem 7: 01/01/23 05:19 01/01/23 05:19 Labs: Abnormal Lab Results - Last 24 Hours (Table) 01/01/23 01/01/23 Range/Units 05:19 05:19 WBC 17.77 H (4.50-10.00) X 10*3/uL RBC 4.09 L (4.40-5.60) X 10*6/uL Hgb 11.7 L (13.0-17.0) d/dL Hct 36.2 L (39.6-50.0) % Neutrophils # 13.82 H (1.80-7.70) X 10*3/uL Monocytes # 1.60 H (0.20-1.00) X 10*3/uL BUN/Creatinine Ratio 28.43 H (12.00-20.00) Ratio Calcium 8.5 L (8.7-10.3) mg/dL Assessment and Plan Assessment: Hemoptysis and possible hematemesis unclear etiology. CT angiogram shows no la rge central emboli. Limited exam regarding segmental and subsegmental branches. Lungs are clear of infiltrate. There is some basilar atelectasis and small effusions right greater than left. Pro calcitonin 0.29. Continue Rocephin Right lower extremity pain, Doppler ruled out DVT Nephrolithiasis status post right percutaneous nephrostolithotomy nephrostomy tube placement on 12/28/2022 History of fibromyalgia History of gastroesophageal reflux disease Plan: The patient was seen and evaluated Abdominal x-ray, labs and medications reviewed Doppler of the right lower extremity negative for DVT Stable and on room air Continue Rocephin Continue IV fluids We will continue to follow I have personally seen and examined the patient, performed the documentation and the assessment and plan as written. Number of minutes spent on the visit: 10.
[2023-01-01 14:55] LABS: Appearance,Urine Clear (Clear); Bacteria,Urine Rare /hpf; Bilirubin,Urine 2+ (Negative); Blood,Urine Small (Negative); Color,Urine Yellow; Glucose,Urine (UA) Negative (Negative); Ketones,Urine 1+ (Negative); Leukocyte Esterase,Urine Negative (Negative); Mucus,Urine Occasional /hpf; Nitrite,Urine Negative (Negative); Protein,Urine Trace (Negative); RBC,Urine 35 /hpf (0-5); Specific Gravity,Urine 1.028 (1.001-1.035); Squamous Epithelial Cell,Urine 1 /hpf (0-4); Urobilinogen,Urine <2.0 mg/dL (<2.0); WBC,Urine 8 /hpf (0-5)
[2023-01-01 16:27] LABS: Appearance,Urine Cloudy (Clear); Bacteria,Urine Rare /hpf; Bilirubin,Urine 1+ (Negative); Blood,Urine Large (Negative); Color,Urine Red; Glucose,Urine (UA) Negative (Negative); Ketones,Urine 1+ (Negative); Leukocyte Esterase,Urine Large (Negative); Mucus,Urine Few /hpf; Nitrite,Urine Negative (Negative); PH, Urine 5.5 (5.0-8.0); Protein,Urine 2+ (Negative); RBC,Urine >182 /hpf (0-5); Specific Gravity,Urine 1.019 (1.001-1.035); Urobilinogen,Urine <2.0 mg/dL (<2.0); WBC,Urine >182 /hpf (0-5)
--- NOTE | 2023-01-01 18:01 | P.PN ---
Subjective Progress Note Date: 01/01/23 72-year-old male 2 days ago patient had a urologic procedure. Patient had right kidney nephrostomy and lithotomy. Patient states that yesterday he had episode of hematemesis, hemoptysis. He also has dull chest pain is worse with deep inspiration. Denies any history of blood clots. Denies any lower extremity pain. Patient does have abdominal pain which she is told to expect after surgery. Denies any fever or constitutional symptoms. Chest x-ray completed in ED reveals bilateral lower lobe infiltrates; CTA of the chest completed reveals bilateral pleural effusions without any large pulmonary embolism Lab work reveals a WBC of 24.5, hemoglobin of 12.5 and platelet count of 274, d- dimer of 5.80, sodium 135, potassium 4.2, BUN/creatinine of 17/1.16, blood glucose of 144 and troponin less than 0.019, BNP of 412 01/01/2023 Patient is seen and evaluated in follow-up on the regular medical floor. He is currently sitting up in bed. Awake and alert in no acute distress. Doppler of the lower extremities revealed ruled out DVT. X-ray of the abdomen yesterday revealed prominent air-fluid loops of small bowel and colon. Right abdominal pigtail catheter in place. No evidence of organomegaly or pneumoperitoneum. White count 17.7. Hemoglobin 11.7. Platelets 363. Sodium 138. Potassium 4.4. Bicarb 22. BUN 20. Creatinine 0.7. Glucose 90. --Remains on normal saline at 100 ML's per hour. Antibiotics in the form of ceftriaxone for possible pneumonia/hemoptysis. Objective - Vital Signs Vital signs: Vital Signs Temp 97.6 F 01/01/23 07:00 Pulse 88 01/01/23 07:00 Resp 16 01/01/23 07:00 BP 172/91 01/01/23 07:00 Pulse Ox 93 L 01/01/23 07:00 FiO2 Intake & Output 12/31/22 01/01/23 01/01/23 18:59 06:59 18:59 Intake Total 237 Output Total 575 Balance 237 -575 Intake: Oral 237 Output: Drainage 200 Right Lateral Back 200 Urine 375 Other: # Voids 2 - Exam GENERAL: The patient is alert and oriented x3, not in any acute distress. Well developed, well nourished. HEENT: Pupils are round and equally reacting to light. EOMI. No scleral icterus. No conjunctival pallor. Normocephalic, atraumatic. No pharyngeal erythema. No thyromegaly. CARDIOVASCULAR: S1 and S2 present. No murmurs, rubs, or gallops. PULMONARY: Chest is clear to auscultation, no wheezing or crackles. ABDOMEN: Soft, nontender, nondistended, normoactive bowel sounds. No palpable organomegaly. MUSCULOSKELETAL: No joint swelling or deformity. EXTREMITIES: No cyanosis, clubbing, or pedal edema. NEUROLOGICAL: Gross neurological examination did not reveal any focal deficits. SKIN: No rashes. - Labs CBC & Chem 7: 01/01/23 05:19 01/01/23 05:19 Labs: Abnormal Lab Results - Last 24 Hours (Table) 01/01/23 01/01/23 Range/Units 05:19 05:19 WBC 17.77 H (4.50-10.00) X 10*3/uL RBC 4.09 L (4.40-5.60) X 10*6/uL Hgb 11.7 L (13.0-17.0) d/dL Hct 36.2 L (39.6-50.0) % Neutrophils # 13.82 H (1.80-7.70) X 10*3/uL Monocytes # 1.60 H (0.20-1.00) X 10*3/uL BUN/Creatinine Ratio 28.43 H (12.00-20.00) Ratio Calcium 8.5 L (8.7-10.3) mg/dL Assessment and Plan Assessment: 1. Hemoptysis; bilateral pneumonia/pleural effusion - Patient has been placed on IV antibiotics in form of Rocephin and azithromy sravan; bronchodilator nebulizer treatments - We will monitor CBC, CRP and pro-calcitonin - Consult pulmonary for further recommendations 2. Nephrolithiasis; status post right PCNL on 12/28/2022; patient was discharged home with nephrostomy tubes - Patient continues to have intermittent gross hematuria; no other urinary complaints - We will consult urology for follow-up and any further recommendations 3. Mild AK I; slow IV fluid hydration with normal saline at a rate of 75 mL an hour; monitor strict MARK's, daily weights, renal function and electrolytes; avoid nephrotoxins and hypotension 5. Leukocytosis/sepsis; likely related to bilateral pneumonia; we will monitor CBC and trend WBC count 6. Elevated d-dimer; CT of the chest is negative for PE 7. Peripheral neuropathy; Lyrica 100 mg 4 times a day DVT prophylaxis; SCDs only given her hemoptysis CODE STATUS; full code
--- NOTE | 2023-01-01 19:20 | P.CONS ---
History of Present Illness - Reason for Consult Consult date: 01/01/23 - History of Present Illness Patient is a 72-year-old male with a past medical history significant for fibromyalgia reflux in this patient who underwent right sided PCNL by Dr. Mcguire on 12/28/2022 and the patient was discharged with a nephrostomy tube patient presenting back to the hospital 2 days later on 12/30/2022 for evaluation of increasing shortness of breath pain the patient had an episode of hematemesis dull chest pain worse with deep inspiration, also complaining of some right-sided abdominal pain more of a dull aching to sharp moderate intensity without radiation some nausea no vomiting denies having any diarrhea with the symptoms the patient has been evaluated on presentation to the hospital patient was afebrile and no fever has been recorded subsequently patient was not tachycardic mildly hypoxic but no need for supplemental oxygen not hypotensive patient did have a 24.5 which is down to 17.7 creatinine 0.7 no UA or culture were done patient did have a chest x-ray COPD with bilateral lobe infiltrate correlate for pneumonia CT angiogram of the chest was negative for PE small foci of free air seen within the posterior right upper quadrant adjacent to the adrenal gland and liver urology has seen the patient and mentioning CT finding likely related to the recent intervention and did not see any need for CT abdominal pelvis patient is on Rocephin infectious he was consulted today rega rding his elevated white count Past Medical History Past Medical History: Fibromyalgia, GERD/Reflux Additional Past Medical History / Comment(s): "chronic bronchitis", seasonal allergies History of Any Multi-Drug Resistant Organisms: None Reported Past Surgical History: Hernia Repair, Tonsillectomy Additional Past Surgical History / Comment(s): sinus surg.Kidney surgery. Past Anesthesia/Blood Transfusion Reactions: No Reported Reaction Past Psychological History: No Psychological Hx Reported Smoking Status: Former smoker Past Alcohol Use History: None Reported Additional Past Alcohol Use History / Comment(s): 1ppd >40 yrs. Past Drug Use History: None Reported - Past Family History Father Family Medical History: Cancer Medications and Allergies Home Medications Medication Instructions Recorded Confirmed Type Multivitamins, Thera [Multivitamin 1 tab PO DAILY 12/22/22 12/30/22 History (formulary)] Pregabalin 100 mg PO QID 12/22/22 12/30/22 History Ketorolac [Toradol] 10 mg PO Q6HR PRN #15 tab 12/29/22 12/30/22 Rx Allergies Allergy/AdvReac Type Severity Reaction Status Date / Time dicyclomine [From Bentyl] Allergy Rapid Verified 12/30/22 12:12 Heart Rate moxifloxacin [From Avelox] Allergy Anaphylaxis Verified 12/30/22 12:12 Penicillins Allergy Unknown Verified 12/30/22 12:12 Childhood Sulfa (Sulfonamide Allergy Unknown Verified 12/30/22 12:12 Antibiotics) Childhood bacitracin AdvReac skin Verified 12/30/22 12:12 [From Neosporin blisters ([id number])] neomycin AdvReac skin Verified 12/30/22 12:12 [From Neosporin blisters ([id number])] polymyxin B AdvReac skin Verified 12/30/22 12:12 [From Neosporin blisters ([id number])] Physical Exam Vitals: Vital Signs Temp Pulse Resp BP Pulse Ox 01/01/23 09:00 66 151/78 95 01/01/23 07:00 97.6 F 88 16 172/91 93 L 01/01/23 02:00 98.4 F 79 15 119/68 97 12/31/22 20:00 86 20 12/31/22 19:51 98.4 F 72 15 137/71 97 12/31/22 15:00 98.3 F 86 20 138/80 93 L Intake and Output 12/31/22 01/01/23 01/01/23 22:59 06:59 14:59 Intake Total 120 Output Total 175 400 Balance -175 -400 120 Intake: Oral 120 Output: Drainage 200 Right Lateral Back 200 Urine 175 200 Other: # Voids 2 Results CBC & Chem 7: 01/01/23 05:19 01/01/23 05:19 Labs: Abnormal Lab Results - Last 24 Hours (Table) 01/01/23 01/01/23 Range/Units 05:19 05:19 WBC 17.77 H (4.50-10.00) X 10*3/uL RBC 4.09 L (4.40-5.60) X 10*6/uL Hgb 11.7 L (13.0-17.0) d/dL Hct 36.2 L (39.6-50.0) % Neutrophils # 13.82 H (1.80-7.70) X 10*3/uL Monocytes # 1.60 H (0.20-1.00) X 10*3/uL BUN/Creatinine Ratio 28.43 H (12.00-20.00) Ratio Calcium 8.5 L (8.7-10.3) mg/dL Assessment and Plan Plan: 1patient with a leukocytosis likely related to the urinary source in this patient with recent intervention to the right kidney and nephrostomy tube placement and the patient did have some abnormalities reported on the CT 2-we will obtain UA and culture 3-continue with Rocephin in view of improvement in the white count however will increase the dose to 2 g daily while waiting for the culture to finalize We will follow on clinical condition and cultures to further adjust medication if needed Thank you for this consultation we will follow the patient along with you Dictation was produced using [employer] dictation software. please excuse any grammatical, word or spelling errors. Time with Patient: Greater than 30
[2023-01-02] MEDS: SODIUM CHLORIDE 0.9% 1,000 ML IV SCH ×2 (02:38→08:29)
[2023-01-02] MEDS: PREGABALIN 100 MG CAP PO SCH ×2 (08:28→12:00)
[2023-01-02] MEDS: MULTIVITAMINS, THERA 1 EACH TAB PO SCH (08:28)
[2023-01-02] MEDS: HYDROcodone/APAP 5-325MG 1 EACH TAB PO PRN (08:28)
[2023-01-02 11:32] LABS: Calcium 8.4 mg/dL (8.7-10.3); Carbon Dioxide 22.4 mmol/L (21.6-31.8); Chloride 105 mmol/L (96-109); Glucose 95 mg/dL (70-110); Potassium 3.4 mmol/L (3.5-5.5); Sodium 139 mmol/L (135-145)
[2023-01-02 11:49] LABS: Basophils # (A) 0.11 X 10*3/uL (0.00-0.10); Basophils % (A) 0.7 %; Eosinophils # (A) 0.51 X 10*3/uL (0.04-0.35); Eosinophils % (A) 3.5 %; HGB 11.4 d/dL (13.0-17.0); Lymphocytes # (A) 1.86 X 10*3/uL (0.90-5.00); Lymphocytes % (A) 12.6 %; MCH 28.8 pg (27.0-32.0); MCHC 32.6 d/dL (32.0-37.0); MCV 88.4 FL (80.0-97.0); Mean Platelet Volume 9.5 FL (9.5-12.2); Monocytes # (A) 1.25 X 10*3/uL (0.20-1.00); Monocytes % (A) 8.5 %; NRBC Per 100 WBC 0 X 10*3/uL (0.00-0.01); Neutrophils # (A) 10.87 X 10*3/uL (1.80-7.70); Platelet Count 399 X 10*3/uL (140-440); RBC 3.96 X 10*6/uL (4.40-5.60); WBC 14.71 X 10*3/uL (4.50-10.00)
[2023-01-02] MEDS ORDERED: POTASSIUM CHLORIDE ER 20 MEQ TAB.ER PO STA (12:09)
--- NOTE | 2023-01-02 12:50 | P.PN ---
Subjective Progress Note Date: 01/02/23 This is a very pleasant 72-year-old male patient with a known history of fibromyalgia, gastroesophageal reflux disease. He also has a history of kidney stones including a 2 cm right renal pelvic stone with obstruction. He was brought in on 12/28/2022 electively for a Alan be and placement of occluding balloon catheter on the right with a percutaneous nephrostomy. He was discharged home the next day. He presented to the emergency room here on 12/30/2022 with complaints of coughing up blood as well as vomiting blood. He also had some dull chest pain worse with deep inspiration. His x-ray showed evidence of COPD with bilateral lower lobe infiltrates. CT angiogram was limited due to bolus timing. There is no evidence of large central emboli or local filling defects. Limitations regarding segmental and subsegmental branches. There is a small foci of free air seen within the posterior right upper quadrant adjacent to the adrenal gland and liver. White count 21.7. Hemoglobin 11.3. D-dimer 5.80. Sodium 138. Potassium 3.9. Bicarb 21. BUN 19. Creatinine 0.7. Glucose 124. Pro-calcitonin 0.29. He is seen today in consultation on the regular medical floor. He is currently resting fairly comfortably in bed. He is awake and alert in no acute distress. Maintaining good O2 saturations in the 90s on room air. He is having some right lower extremity pain. Nephrostomy tube is in place on the right with blood-tinged urine. The patient is seen today 01/01/2023 in follow-up on the regular medical floor. He is currently sitting up in bed. Awake and alert in no acute distress. Doppler of the lower extremities revealed ruled out DVT. X-ray of the abdomen yesterday revealed prominent air-fluid loops of small bowel and colon. Right abdominal pigtail catheter in place. No evidence of organomegaly or pneumoperitoneum. White count 17.7. Hemoglobin 11.7. Platelets 363. Sodium 138. Potassium 4.4. Bicarb 22. BUN 20. Creatinine 0.7. Glucose 90. Remains on normal saline at 100 ML's per hour. Antibiotics in the form of ceftriaxone. The patient is seen today 01/02/2023 in follow-up on the regular medical floor. He is awake and alert in no acute distress. Currently maintaining good O2 saturations in the 90s on room air. He's afebrile. Hemodynamically stable. White count 14.7. Hemoglobin 11.4. Sodium 139. Potassium 3.4. Bicarb 22. BUN 12. Creatinine 0.6. He is continued on ceftriaxone. Normal saline at 100 ML's per hour. ID services are on the case. Objective - Vital Signs Vital signs: Vital Signs Temp 97.8 F 01/02/23 07:00 Pulse 93 01/02/23 07:00 Resp 16 01/02/23 07:00 BP 163/78 01/02/23 07:00 Pulse Ox 92 L 01/02/23 07:00 FiO2 Intake & Output 01/01/23 01/02/23 01/02/23 18:59 06:59 18:59 Intake Total 238 Output Total 1 450 Balance 237 -450 Intake: Oral 238 Output: Urine 1 450 Other: # Voids 1 - Exam GENERAL EXAM: Alert, very pleasant 72-year-old male, room air, comfortable in no apparent distress. HEAD: Normocephalic. EYES: Normal reaction of pupils, equal size. NOSE: Clear with pink turbinates. THROAT: No erythema or exudates. NECK: No masses, no JVD. CHEST: No chest wall deformity. LUNGS: Equal air entry with few scattered rhonchi. CVS: S1 and S2 normal with no audible murmur, regular rhythm. ABDOMEN: Right nephrostomy tube in place. No hepatosplenomegaly, normal bowel sounds, no guarding or rigidity. SPINE: No scoliosis or deformity SKIN: No rashes CENTRAL NERVOUS SYSTEM: No focal deficits, tone is normal in all 4 extremities. EXTREMITIES: There is no peripheral edema. No clubbing, no cyanosis. Peripheral pulses are intact. - Labs CBC & Chem 7: 01/02/23 07:17 01/02/23 07:17 Labs: Abnormal Lab Results - Last 24 Hours (Table) 01/01/23 01/01/23 01/02/23 Range/Units 14:10 15:20 07:17 WBC 14.71 H (4.50-10.00) X 10*3/uL RBC 3.96 L (4.40-5.60) X 10*6/uL Hgb 11.4 L (13.0-17.0) d/dL Hct 35.0 L (39.6-50.0) % Neutrophils # 10.87 H (1.80-7.70) X 10*3/uL Monocytes # 1.25 H (0.20-1.00) X 10*3/uL Eosinophils # 0.51 H (0.04-0.35) X 10*3/uL Basophils # 0.11 H (0.00-0.10) X 10*3/uL Potassium (3.5-5.5) mmol/L Calcium (8.7-10.3) mg/dL Urine Protein Trace H 2+ H (Negative) Urine Ketones 1+ H 1+ H (Negative) Urine Blood Small H Large H (Negative) Urine Bilirubin 2+ H 1+ H (Negative) Ur Leukocyte Esterase Large H (Negative) Urine RBC 35 H >182 H (0-5) /hpf Urine WBC 8 H >182 H (0-5) /hpf Urine WBC Clumps Few H (None) /hpf Urine Bacteria Rare H Rare H (None) /hpf Urine Mucus Occasional H Few H (None) /hpf 01/02/23 Range/Units 07:17 WBC (4.50-10.00) X 10*3/uL RBC (4.40-5.60) X 10*6/uL Hgb (13.0-17.0) d/dL Hct (39.6-50.0) % Neutrophils # (1.80-7.70) X 10*3/uL Monocytes # (0.20-1.00) X 10*3/uL Eosinophils # (0.04-0.35) X 10*3/uL Basophils # (0.00-0.10) X 10*3/uL Potassium 3.4 L (3.5-5.5) mmol/L Calcium 8.4 L (8.7-10.3) mg/dL Urine Protein (Negative) Urine Ketones (Negative) Urine Blood (Negative) Urine Bilirubin (Negative) Ur Leukocyte Esterase (Negative) Urine RBC (0-5) /hpf Urine WBC (0-5) /hpf Urine WBC Clumps (None) /hpf Urine Bacteria (None) /hpf Urine Mucus (None) /hpf Assessment and Plan Assessment: Hemoptysis and possible hematemesis unclear etiology. CT angiogram shows no large central emboli. Limited exam regarding segmental and subsegmental branches. Lungs are clear of infiltrate. There is some basilar atelectasis and small effusions right greater than left. Pro calcitonin 0.29. Continue Rocephin Right lower extremity pain, Doppler ruled out DVT Nephrolithiasis status post right percutaneous nephrostolithotomy nephrostomy tube placement on 12/28/2022 History of fibromyalgia History of gastroesophageal reflux disease Plan: The patient was seen and evaluated Labs and medications reviewed Stable and on room air Continue Rocephin, final cultures pending Continue IV fluids We will continue to follow I have personally seen and examined the patient, performed the documentation and the assessment and plan as written. Number of minutes spent on the visit: 10.
[2023-01-02 15:24] VITALS: BP 134/73; PULSE 80; RESP 15; TEMP 98.4
== END 2023-01-02 15:55 | disposition home or self-care (01) | DRG 871 ==
LOC: EC 08:40 → 6NMEDSUR 12:13 → OBSVTOIN 01-02 11:04
PROVIDERS: ADMIT Internal Medicine; ATTEND Internal Medicine
DX: A41.9 Sepsis, unspecified organism (principal); J18.9 Pneumonia, unspecified organism; J44.0 Chronic obstructive pulmonary disease with (acute) lower respiratory infection; J90 Pleural effusion, not elsewhere classified; G62.9 Polyneuropathy, unspecified; M79.7 Fibromyalgia; N20.0 Calculus of kidney; R31.0 Gross hematuria; Z20.822 Contact with and (suspected) exposure to COVID-19; Z87.442 Personal history of urinary calculi; Z87.891 Personal history of nicotine dependence; Z88.0 Allergy status to penicillin; Z88.1 Allergy status to other antibiotic agents; Z88.2 Allergy status to sulfonamides; Z93.6 Other artificial openings of urinary tract status
CPT/HCPCS: 36415; 71046; 71275; 74019; 80048; 81001; 83880; 84145; 84484; 85025; 85379; 85610; 85730; 86850; 86900; 86901; 87086; 93005; 96365; 96375; 99285

== ENCOUNTER 2023-01-02 20:45 | Inpatient (IN) | payer MEDICARE ==
[2023-01-02] MEDS ORDERED: MORPHINE SULFATE 4 MG/ML SYRINGE IVP STA (22:31)
[2023-01-02] MEDS ORDERED: ONDANSETRON 4 MG/2 ML VIAL IVP STA (22:31)
[2023-01-02 22:46] LABS: Basophils % (A) 0 %; Eosinophils # (A) 0.3 k/uL (0-0.7); Eosinophils % (A) 2 %; HCT 35.9 % (39.0-53.0); HGB 12.1 gm/dL (13.0-17.5); Lymphocytes # (A) 1.2 k/uL (1.0-4.8); Lymphocytes % (A) 7 %; MCH 29.7 pg (25.0-35.0); MCHC 33.8 g/dL (31.0-37.0); MCV 87.9 fL (80.0-100.0); Mean Platelet Volume 7.4; Monocytes % (A) 6 %; Neutrophils # (A) 15.7 k/uL (1.3-7.7); Neutrophils % (A) 86 %; Platelet Count 410 k/uL (150-450); RBC 4.08 m/uL (4.30-5.90); RDW 14.2 % (11.5-15.5); WBC 18.3 k/uL (3.8-10.6)
[2023-01-02 22:56] LABS: ALT 16 U/L (4-49); AST 24 U/L (17-59); African American GFR (CKD) >90 (>60 ml/min/1.73 sqM); Albumin 3.1 g/dL (3.5-5.0); Alkaline Phosphatase 69 U/L (38-126); Anion Gap 10 mmol/L; Blood Urea Nitrogen 12 mg/dL (9-20); Calcium 8.6 mg/dL (8.4-10.2); Carbon Dioxide 21 mmol/L (22-30); Chloride 106 mmol/L (98-107); Glucose 134 mg/dL (74-99); Non-African American GFR(CKD) >90 (>60 ml/min/1.73 sqM); Potassium 3.4 mmol/L (3.5-5.1); Sodium 137 mmol/L (137-145); Total Bilirubin 0.8 mg/dL (0.2-1.3); Total Protein 5.6 g/dL (6.3-8.2)
[2023-01-02 23:05] LABS: Partial Thromboplastin Time 25.3 sec (22.0-30.0); Prothrombin Time 10.5 sec (10.0-12.5)
--- NOTE | 2023-01-03 02:17 | ED ---
General Adult HPI <Robbin Martines - Last Filed: 01/03/23 08:42> - General Source: patient Mode of arrival: wheelchair <Fozia Perez - Last Filed: 01/09/23 00:11> - General Chief complaint: Urogenital Stated complaint: Blood in urine Time Seen by Provider: 01/02/23 22:24 - History of Present Illness Initial comments: Patient is a 72-year-old gentleman who underwent surgery for a right-sided kidney stone last week, he had a nephrostomy tube placed. He was subsequently readmitted to the hospital for dyspnea and discharged home. Upon discharge home last night patient noted that there was gross blood in his nephrostomy bag and he was developing worsening bruising of his flank. (Fozia Perez) - Related Data Home Medications Medication Instructions Recorded Confirmed Multivitamins, Thera [Multivitamin 1 tab PO DAILY 12/22/22 01/03/23 (formulary)] Pregabalin 100 mg PO QID 12/22/22 01/03/23 Previous Rx's Medication Instructions Recorded Ketorolac [Toradol] 10 mg PO Q6HR PRN #15 tab 12/29/22 Famotidine [Pepcid] 20 mg PO DAILY #30 tablet 01/02/23 cefUROXime axetiL [Ceftin] 500 mg PO BID 20 Days #10 tab 01/02/23 Allergies Allergy/AdvReac Type Severity Reaction Status Date / Time dicyclomine [From Bentyl] Allergy Rapid Verified 01/02/23 21:58 Heart Rate moxifloxacin [From Avelox] Allergy Anaphylaxis Verified 01/02/23 21:58 Penicillins Allergy Unknown Verified 01/02/23 21:58 Childhood Sulfa (Sulfonamide Allergy Unknown Verified 01/02/23 21:58 Antibiotics) Childhood bacitracin AdvReac skin Verified 01/02/23 21:58 [From Neosporin blisters ([id number])] neomycin AdvReac skin Verified 01/02/23 21:58 [From Neosporin blisters ([id number])] polymyxin B AdvReac skin Verified 01/02/23 21:58 [From Neosporin blisters ([id number])] Review of Systems ROS Other: All systems not noted in ROS Statement are negative. <Robbin Martines - Last Filed: 01/03/23 08:42> ROS Other: All systems not noted in ROS Statement are negative. <Fozia Perez - Last Filed: 01/09/23 00:11> ROS Statement: Those systems with pertinent positive or pertinent negative responses have been documented in the HPI. Past Medical History Past Medical History: Fibromyalgia, GERD/Reflux Additional Past Medical History / Comment(s): "chronic bronchitis", seasonal allergies History of Any Multi-Drug Resistant Organisms: None Reported Past Surgical History: Hernia Repair, Tonsillectomy Additional Past Surgical History / Comment(s): sinus surg.Kidney surgery. Past Anesthesia/Blood Transfusion Reactions: No Reported Reaction Past Psychological History: No Psychological Hx Reported Smoking Status: Former smoker Past Alcohol Use History: None Reported Past Drug Use History: None Reported - Past Family History Father Family Medical History: Cancer <Fozia Perez - Last Filed: 01/09/23 00:11> General Exam <Fozia Perez - Last Filed: 01/09/23 00:11> - General Exam Comments Initial Comments: Physical Exam GENERAL: Patient is well-developed and well-nourished. Patient is nontoxic and well-hydrated and is in no distress. HENT: Normocephalic, Atraumatic. EYES: PERRL, EOMI No conjunctival pallor PULMONARY: Unlabored respirations. No audible rales rhonchi or wheezing was noted. CARDIOVASCULAR: There is a regular rate and rhythm without any murmurs gallops or rubs. ABDOMEN: Significant hematoma around the nephrostomy tube, Positive Casey Pillai sign concerning for retroperitoneal bleeding SKIN: Significant flank bruising : Deferred NEUROLOGIC: Patient is alert and oriented x3. Moving all extremities spontaneously MUSCULOSKELETAL: Normal extremities with adequate strength and full range of motion. No lower extremity swelling or edema. No calf tenderness. PSYCHIATRIC: Normal psychiatric evaluation. (Fozia Perez) Course Vital Signs 01/02/23 01/02/23 01/03/23 21:54 22:44 01:00 Temperature 98.1 F Pulse Rate 120 H 113 H 105 H Respiratory 18 20 16 Rate Blood Pressure 134/75 161/90 150/80 O2 Sat by Pulse 95 96 95 Oximetry 01/03/23 01/03/23 01/03/23 03:00 04:00 06:06 Temperature Pulse Rate 98 88 85 Respiratory 16 18 16 Rate Blood Pressure 138/86 147/88 159/81 O2 Sat by Pulse 99 95 95 Oximetry 01/03/23 01/03/23 01/03/23 07:51 09:36 10:24 Temperature 99.0 F 98.3 F Pulse Rate 83 86 Respiratory 20 22 Rate Blood Pressure 154/82 145/82 O2 Sat by Pulse 96 96 Oximetry 01/03/23 01/03/23 01/03/23 11:34 18:00 20:12 Temperature 98.2 F 98.2 F Pulse Rate 85 109 H 89 Respiratory 18 18 18 Rate Blood Pressure 169/87 155/74 149/85 O2 Sat by Pulse 96 96 97 Oximetry Medical Decision Making - Lab Data Result diagrams: 01/03/23 05:58 01/02/23 22:25 <Robbin Martines N - Last Filed: 01/03/23 08:42> - Lab Data Result diagrams: 01/05/23 07:17 01/05/23 07:17 <Fozia Perez - Last Filed: 01/09/23 00:11> - Medical Decision Making Was pt. sent in by a medical professional or institution (, PA, TRUCK RENTAL MANAGER, urgent care, hospital, or prison...) When possible be specific @ -No Did you speak to anyone other than the patient for history (EMS, parent, family, police, friend...)? What history was obtained from this source @ -Family Did you review nursing and triage notes (agree or disagree)? Why? @ -I reviewed and agree with nursing and triage notes Were old charts reviewed (outside hosp., previous admission, EMS record, old EKG, old radiological studies, urgent care reports/EKG's, prison records)? Report findings @ -Operative notes and previous admission notes were reviewed Differential Diagnosis (chest pain, altered mental status, abdominal pain women, abdominal pain men, vaginal bleeding, weakness, fever, dyspnea, syncope, headache, dizziness, GI bleed, back pain, seizure, CVA, palpatations, mental health, musculoskeletal)? @ -Differential includes retroperitoneal hemorrhage, postoperative bleeding secondary to lithotripsy EKG interpreted by me (3pts min.). @ -As above X-rays interpreted by me (1pt min.). @ -None done CT interpreted by me (1pt min.). @ -Computed tomography scan does show a retroperitoneal hematoma, bleeding around the nephrostomy tube U/S interpreted by me (1pt. min.). @ -No hydronephrosis,' What testing was considered but not performed or refused? (CT, X-rays, U/S, labs)? Why? @ -None What meds were considered but not given or refused? Why? @ -None Did you discuss the management of the patient with other professionals (professionals i.e. , PA, TRUCK RENTAL MANAGER, lab, RT, psych nurse, social service director, importer or exporter, teacher, space officer, case maker)? Give summary @ -Discussed with Dr. Cardona urologdavid,Viktor nurse practitioner for Pulmonology/ICU, Dr Morelos Was smoking cessation discussed for >3mins.? @ -No Was critical care preformed (if so, how long)? @ -Yes, 60 minutes Were there social determinants of health that impacted care today? How? (Homelessness, low income, unemployed, alcoholism, drug addiction, transportation, low edu. Level, literacy, decrease access to med. care, snf, rehab)? @ -No Was there de-escalation of care discussed even if they declined (Discuss DNR or withdrawal of care, Hospice)? DNR status @ -No What co-morbidities impacted this encounter? (DM, HTN, Smoking, COPD, CAD, Cancer, CVA, ARF, Chemo, Hep., AIDS, mental health diagnosis, sleep apnea, morbid obesity)? @ -None Was patient admitted / discharged? Hospital course, mention meds given and route, prescriptions, significant lab abnormalities, going to OR and other pertinent info. @ -Admission Patient was seen and evaluated, history is obtained from the patient and review of medical record. Physical exam shows a large subcutaneous hematoma and nephrostomy tube with angie blood. Labs are obtained and are baseline, patient is hemodynamically stable. Computed tomography scan was obtained. [facility] was contacted multiple times due to delay in reading however critical results were communicated to me in the morning, there is a retroperitoneal hemorrhage, there is a subcutaneous hemorrhage, there is a hemothorax. CT findings were discussed with the PA for the ICU as well as urologist on-call. Urologist installation supervisor Dr. Kinney'ramesh arrived at bedside, he did remove the nephrostomy tube. He agreed with plan for admission for serial H&H. Repeat hemoglobin was obtained this morning patient seems open has dropped 1.[address] Dulce watkins. Patient admitted to the urology service with medicine on-call. Undiagnosed new problem with uncertain prognosis? @ -No Drug Therapy requiring intensive monitoring for toxicity (Heparin, Nitro, Insulin, Cardizem)? @ -No Were any procedures done? @ -No Diagnosis/symptom? @ -Hemothorax, postoperative retroperitoneal hemorrhage, acute blood loss anemia Acute, or Chronic, or Acute on Chronic? @ -Acute Uncomplicated (without systemic symptoms) or Complicated (systemic symptoms)? @ -default Side effects of treatment? @ -No Exacerbation, Progression, or Severe Exacerbation? @ -No Poses a threat to life or bodily function? How? (Chest pain, [place], [place], pneumonia, PE, COPD, DKA, ARF, appy, cholecystitis, CVA, Diverticulitis, Homicidal, Suicidal, threat to staff... and all critical care pts) @ -Yes (Fozia Perez) - Lab Data Lab Results 01/02/23 01/02/23 01/02/23 Range/Units 22:25 22:25 22:25 WBC 18.3 H (3.8-10.6) k/uL RBC 4.08 L (4.30-5.90) m/uL Hgb 12.1 L (13.0-17.5) gm/dL Hct 35.9 L (39.0-53.0) % MCV 87.9 (80.0-100.0) fL MCH 29.7 (25.0-35.0) pg MCHC 33.8 (31.0-37.0) g/dL RDW 14.2 (11.5-15.5) % Plt Count 410 (150-450) k/uL MPV 7.4 Neutrophils % 86 % Lymphocytes % 7 % Monocytes % 6 % Eosinophils % 2 % Basophils % 0 % Neutrophils # 15.7 H (1.3-7.7) k/uL Lymphocytes # 1.2 (1.0-4.8) k/uL Monocytes # 1.0 (0-1.0) k/uL Eosinophils # 0.3 (0-0.7) k/uL Basophils # 0.0 (0-0.2) k/uL PT 10.5 (10.0-12.5) sec INR 1.0 (<1.2) APTT 25.3 (22.0-30.0) sec Sodium 137 (137-145) mmol/L Potassium 3.4 L (3.5-5.1) mmol/L Chloride 106 (98-107) mmol/L Carbon Dioxide 21 L (22-30) mmol/L Anion Gap 10 mmol/L BUN 12 (9-20) mg/dL Creatinine 0.68 (0.66-1.25) mg/dL Est GFR (CKD-EPI)AfAm >90 (>60 ml/min/1.73 sqM) Est GFR (CKD-EPI)NonAf >90 (>60 ml/min/1.73 sqM) Glucose 134 H (74-99) mg/dL Calcium 8.6 (8.4-10.2) mg/dL Total Bilirubin 0.8 (0.2-1.3) mg/dL AST 24 (17-59) U/L ALT 16 (4-49) U/L Alkaline Phosphatase 69 (38-126) U/L Total Protein 5.6 L (6.3-8.2) g/dL Albumin 3.1 L (3.5-5.0) g/dL Procalcitonin (0.02-0.09) ng/mL Urine Color Urine Appearance (Clear) Urine pH (5.0-8.0) Ur Specific [place] (1.001-1.035) Urine Protein (Negative) Urine Glucose (UA) (Negative) Urine Ketones (Negative) Urine Blood (Negative) Urine Nitrite (Negative) Urine Bilirubin (Negative) Urine Urobilinogen (<2.0) mg/dL Ur Leukocyte Esterase (Negative) Urine RBC (0-5) /hpf Urine WBC (0-5) /hpf Ur Squamous Epith Cells (0-4) /hpf Urine Bacteria (None) /hpf Urine Mucus (None) /hpf Blood Type Blood Type Recheck Bld Type Recheck Status Antibody Screen Spec Expiration Date 01/02/23 01/03/23 01/03/23 Range/Units 22:35 03:35 05:58 WBC 18.3 H (3.8-10.6) k/uL RBC 3.57 L (4.30-5.90) m/uL Hgb 10.5 L (13.0-17.5) gm/dL Hct 31.4 L (39.0-53.0) % MCV 87.9 (80.0-100.0) fL MCH 29.5 (25.0-35.0) pg MCHC 33.5 (31.0-37.0) g/dL RDW 14.3 (11.5-15.5) % Plt Count 364 (150-450) k/uL MPV 7.3 Neutrophils % 84 % Lymphocytes % 8 % Monocytes % 7 % Eosinophils % 1 % Basophils % 0 % Neutrophils # 15.3 H (1.3-7.7) k/uL Lymphocytes # 1.4 (1.0-4.8) k/uL Monocytes # 1.2 H (0-1.0) k/uL Eosinophils # 0.3 (0-0.7) k/uL Basophils # 0.0 (0-0.2) k/uL PT (10.0-12.5) sec INR (<1.2) APTT (22.0-30.0) sec Sodium (137-145) mmol/L Potassium (3.5-5.1) mmol/L Chloride (98-107) mmol/L Carbon Dioxide (22-30) mmol/L Anion Gap mmol/L BUN (9-20) mg/dL Creatinine (0.66-1.25) mg/dL Est GFR (CKD-EPI)AfAm (>60 ml/min/1.73 sqM) Est GFR (CKD-EPI)NonAf (>60 ml/min/1.73 sqM) Glucose (74-99) mg/dL Calcium (8.4-10.2) mg/dL Total Bilirubin (0.2-1.3) mg/dL AST (17-59) U/L ALT (4-49) U/L Alkaline Phosphatase (38-126) U/L Total Protein (6.3-8.2) g/dL Albumin (3.5-5.0) g/dL Procalcitonin (0.02-0.09) ng/mL Urine Color Light Yellow Urine Appearance Clear (Clear) Urine pH 6.0 (5.0-8.0) Ur Specific [place] 1.050 H (1.001-1.035) Urine Protein Trace H (Negative) Urine Glucose (UA) Negative (Negative) Urine Ketones 2+ H (Negative) Urine Blood Large H (Negative) Urine Nitrite Negative (Negative) Urine Bilirubin Negative (Negative) Urine Urobilinogen <2.0 (<2.0) mg/dL Ur Leukocyte Esterase Negative (Negative) Urine RBC >182 H (0-5) /hpf Urine WBC 7 H (0-5) /hpf Ur Squamous Epith Cells <1 (0-4) /hpf Urine Bacteria Rare H (None) /hpf Urine Mucus Rare H (None) /hpf Blood Type A Negative Blood Type Recheck A Neg Bld Type Recheck Status No Antibody Screen NEGATIVE Spec Expiration Date 01/05/2023 - 233401/04/23 01/04/23 01/04/23 Range/Units 08:24 08:24 08:24 WBC 20.0 H (3.8-10.6) k/uL RBC 3.72 L (4.30-5.90) m/uL Hgb 10.8 L (13.0-17.5) gm/dL Hct 32.8 L (39.0-53.0) % MCV 88.2 (80.0-100.0) fL MCH 29.0 (25.0-35.0) pg MCHC 32.9 (31.0-37.0) g/dL RDW 14.4 (11.5-15.5) % Plt Count 431 (150-450) k/uL MPV 7.4 Neutrophils % % Lymphocytes % % Monocytes % % Eosinophils % % Basophils % % Neutrophils # (1.3-7.7) k/uL Lymphocytes # (1.0-4.8) k/uL Monocytes # (0-1.0) k/uL Eosinophils # (0-0.7) k/uL Basophils # (0-0.2) k/uL PT (10.0-12.5) sec INR (<1.2) APTT (22.0-30.0) sec Sodium 138 (137-145) mmol/L Potassium 3.6 (3.5-5.1) mmol/L Chloride 108 H (98-107) mmol/L Carbon Dioxide 21 L (22-30) mmol/L Anion Gap 9 mmol/L BUN 14 (9-20) mg/dL Creatinine 0.61 L (0.66-1.25) mg/dL Est GFR (CKD-EPI)AfAm >90 (>60 ml/min/1.73 sqM) Est GFR (CKD-EPI)NonAf >90 (>60 ml/min/1.73 sqM) Glucose 118 H (74-99) mg/dL Calcium 8.5 (8.4-10.2) mg/dL Total Bilirubin (0.2-1.3) mg/dL AST (17-59) U/L ALT (4-49) U/L Alkaline Phosphatase (38-126) U/L Total Protein (6.3-8.2) g/dL Albumin (3.5-5.0) g/dL Procalcitonin 0.16 H (0.02-0.09) ng/mL Urine Color Urine Appearance (Clear) Urine pH (5.0-8.0) Ur Specific [place] (1.001-1.035) Urine Protein (Negative) Urine Glucose (UA) (Negative) Urine Ketones (Negative) Urine Blood (Negative) Urine Nitrite (Negative) Urine Bilirubin (Negative) Urine Urobilinogen (<2.0) mg/dL Ur Leukocyte Esterase (Negative) Urine RBC (0-5) /hpf Urine WBC (0-5) /hpf Ur Squamous Epith Cells (0-4) /hpf Urine Bacteria (None) /hpf Urine Mucus (None) /hpf Blood Type Blood Type Recheck Bld Type Recheck Status Antibody Screen Spec Expiration Date 01/05/23 01/05/23 Range/Units 07:17 07:17 WBC 17.1 H (3.8-10.6) k/uL RBC 3.56 L (4.30-5.90) m/uL Hgb 10.4 L (13.0-17.5) gm/dL Hct 31.9 L (39.0-53.0) % MCV 89.5 (80.0-100.0) fL MCH 29.3 (25.0-35.0) pg MCHC 32.8 (31.0-37.0) g/dL RDW 14.4 (11.5-15.5) % Plt Count 445 (150-450) k/uL MPV 7.5 Neutrophils % 78 % Lymphocytes % 11 % Monocytes % 6 % Eosinophils % 3 % Basophils % 0 % Neutrophils # 13.4 H (1.3-7.7) k/uL Lymphocytes # 1.8 (1.0-4.8) k/uL Monocytes # 1.1 H (0-1.0) k/uL Eosinophils # 0.6 (0-0.7) k/uL Basophils # 0.1 (0-0.2) k/uL PT (10.0-12.5) sec INR (<1.2) APTT (22.0-30.0) sec Sodium 138 (137-145) mmol/L Potassium 3.9 (3.5-5.1) mmol/L Chloride 107 (98-107) mmol/L Carbon Dioxide 25 (22-30) mmol/L Anion Gap 6 mmol/L BUN 12 (9-20) mg/dL Creatinine 0.74 (0.66-1.25) mg/dL Est GFR (CKD-EPI)AfAm >90 (>60 ml/min/1.73 sqM) Est GFR (CKD-EPI)NonAf >90 (>60 ml/min/1.73 sqM) Glucose 118 H (74-99) mg/dL Calcium 8.4 (8.4-10.2) mg/dL Total Bilirubin (0.2-1.3) mg/dL AST (17-59) U/L ALT (4-49) U/L Alkaline Phosphatase (38-126) U/L Total Protein (6.3-8.2) g/dL Albumin (3.5-5.0) g/dL Procalcitonin (0.02-0.09) ng/mL Urine Color Urine Appearance (Clear) Urine pH (5.0-8.0) Ur Specific [place] (1.001-1.035) Urine Protein (Negative) Urine Glucose (UA) (Negative) Urine Ketones (Negative) Urine Blood (Negative) Urine Nitrite (Negative) Urine Bilirubin (Negative) Urine Urobilinogen (<2.0) mg/dL Ur Leukocyte Esterase (Negative) Urine RBC (0-5) /hpf Urine WBC (0-5) /hpf Ur Squamous Epith Cells (0-4) /hpf Urine Bacteria (None) /hpf Urine Mucus (None) /hpf Blood Type Blood Type Recheck Bld Type Recheck Status Antibody Screen Spec Expiration Date Disposition Is patient prescribed a controlled substance at d/c from ED?: No Time of Disposition: 08:42 <Robbin Martines - Last Filed: 01/03/23 08:42> <Fozia Perez - Last Filed: 01/09/23 00:11> Clinical Impression: Retroperitoneal hemorrhage, Postoperative hemorrhage of subcutaneous tissue, Hemorrhage from nephrostomy tube, Hemothorax Disposition: ADMITTED IP TO THIS HOSP Condition: Stable
--- NOTE | 2023-01-03 04:02 | US ---
EXAM: US Retroperitoneal Limited, Renal CLINICAL HISTORY: ITS.REASON US Reason: Hematuria TECHNIQUE: Real-time limited ultrasound of the retroperitoneum with image documentation. COMPARISON: No relevant prior studies available. FINDINGS: Right kidney: Right kidney measures 13.4 cm in length. Internalized ureteral stent identified on the prior CT from 01/02/2023 is not clearly identified on this exam. No hydronephrosis. Left kidney: Left kidney is unremarkable measuring 12.8 cm without hydronephrosis. Bladder: Urinary bladder is suboptimally evaluated. Grossly there may be some minimal amount of echogenic material within the dependent portion of the urinary bladder. IMPRESSION: No acute findings in the retroperitoneum. Interval removal of internalized right-sided ureteral stent without hydronephrosis
[2023-01-03] MEDS: MORPHINE SULFATE 4 MG/ML SYRINGE IVP PRN ×3 (04:08→18:03)
[2023-01-03 04:33] LABS: Appearance,Urine Clear (Clear); Bacteria,Urine Rare /hpf; Bilirubin,Urine Negative (Negative); Blood,Urine Large (Negative); Color,Urine Light Yellow; Glucose,Urine (UA) Negative (Negative); Ketones,Urine 2+ (Negative); Leukocyte Esterase,Urine Negative (Negative); Mucus,Urine Rare /hpf; Nitrite,Urine Negative (Negative); Protein,Urine Trace (Negative); RBC,Urine >182 /hpf (0-5); Squamous Epithelial Cell,Urine <1 /hpf (0-4); Urobilinogen,Urine <2.0 mg/dL (<2.0); WBC,Urine 7 /hpf (0-5)
--- NOTE | 2023-01-03 05:48 | CT ---
EXAM: CT Abdomen and Pelvis With Intravenous Contrast CLINICAL HISTORY: ITS.REASON CT Reason: left nephrostomy tube pulled, bleeding TECHNIQUE: Axial computed tomography images of the abdomen and pelvis with intravenous contrast. CTDI is 23.9 mGy and DLP is 1183.3 mGy-cm. This CT exam was performed using one or more of the following dose reduction techniques: automated exposure control, adjustment of the mA and/or kV according to patient size, and/or use of iterative reconstruction technique. COMPARISON: No relevant prior studies available. FINDINGS: Lung bases: See below. Pleural space: Incompletely visualized right hemothorax with complex hemorrhagic components. Adjacent compressive atelectasis noted. ABDOMEN: Liver: Unremarkable. No mass. Gallbladder and bile ducts: Unremarkable. No calcified stones. No ductal dilation. Pancreas: Unremarkable. No mass. No ductal dilation. Spleen: Unremarkable. No splenomegaly. Adrenals: Unremarkable. No mass. Kidneys and ureters: Patient is status post right nephrostomy tube placement. Please note that there is hypodensity within the right renal parenchyma with hemorrhage extending to the right retroperitoneal space which may be postprocedural. This measures approximately 2.5 x 2.7 x 4.6 cm. Additional gas noted which may be postprocedural in nature. Consider short-term interval follow-up imaging to evaluate for worsening size of hematoma. Mild right renal hydronephrosis with delayed right nephrogram. Transition point appears to be within the right distal ureter. No evidence of obstructive calculus. Stomach and bowel: No evidence of bowel obstruction. No mucosal thickening. PELVIS: Appendix: Normal appendix. Bladder: Unremarkable. No mass. Reproductive: Unremarkable as visualized. ABDOMEN and PELVIS: Intraperitoneal space: Unremarkable. No free air. No significant fluid collection. Bones/joints: Degenerative changes in the spine. Mr. spinal fusion hardware at L5-S1. No acute fracture. No dislocation. Soft tissues: Anasarca. Umbilical hernia containing fat. Vasculature: Concentric and eccentric atherosclerotic plaque within the aorta with infrarenal abdominal aortic aneurysm measuring 3.3 x 3.5 cm. 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 This is incompletely evaluated. Atherosclerotic disease. Lymph nodes: Unremarkable. No enlarged lymph nodes. Tubes, lines and devices: Spinal cord stimulator with percutaneous leads. IMPRESSION: 1. Patient is status post right nephrostomy tube placement. Please note that there is hypodensity within the right renal parenchyma with hemorrhage extending to the right retroperitoneal space which may be postprocedural. This measures approximately 2.5 x 2.7 x 4.6 cm. Additional gas noted which may be postprocedural in nature. Consider short-term interval follow-up imaging to evaluate for worsening size of hematoma. 2. Incompletely visualized right hemothorax with complex hemorrhagic components. Adjacent compressive atelectasis noted. 3. Mild right renal hydronephrosis with delayed right nephrogram. Transition point appears to be within the right distal ureter. No evidence of obstructive calculus. 4. 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 This is incompletely evaluated. 5. No other acute findings. 6. Incidental findings as described. <MYCVCSECTION> Communications: 01/03/23 05:46 Call Doctor Regarding Above results, called Dr. Perez on 01/03 05:46 (-04:00)
[2023-01-03 06:06] LABS: Basophils % (A) 0 %; Eosinophils # (A) 0.3 k/uL (0-0.7); Eosinophils % (A) 1 %; HCT 31.4 % (39.0-53.0); HGB 10.5 gm/dL (13.0-17.5); Lymphocytes # (A) 1.4 k/uL (1.0-4.8); Lymphocytes % (A) 8 %; MCH 29.5 pg (25.0-35.0); MCHC 33.5 g/dL (31.0-37.0); MCV 87.9 fL (80.0-100.0); Mean Platelet Volume 7.3; Monocytes # (A) 1.2 k/uL (0-1.0); Monocytes % (A) 7 %; Neutrophils # (A) 15.3 k/uL (1.3-7.7); Neutrophils % (A) 84 %; Platelet Count 364 k/uL (150-450); RBC 3.57 m/uL (4.30-5.90); RDW 14.3 % (11.5-15.5); WBC 18.3 k/uL (3.8-10.6)
[2023-01-03] MEDS ORDERED: NALOXONE 0.4 MG/ML 1 ML VIAL IV PRN (08:40)
[2023-01-03] MEDS ORDERED: ACETAMINOPHEN TAB 325 MG TAB PO PRN (08:40)
[2023-01-03] MEDS ORDERED: polyethylene glycoL 3350 17 GM POWD.PACK PO PRN (09:56)
[2023-01-03] MEDS ORDERED: POTASSIUM CHLORIDE ER 20 MEQ TAB.ER PO STA (09:57)
--- NOTE | 2023-01-03 10:01 | P.CONS ---
History of Present Illness - Reason for Consult Leukocytosis, hypokalemia - History of Present Illness 72-year-old pleasant male came in after hematuria be a nephrostomy tube which is presently removed patient also had hematoma with a drop in hemoglobin from 12 to 10. Patient doesn't have any fever does have leukocytosis which is reactive secondary to hematuria and hematoma. Patient denied any dysuria able to urinate at this time. Patient doesn't have a WBC in the urine does have significant RBC clinically doesn't appear to have urinary tract infection. Patient is presently not on any antibiotics. Patient is fairly healthy male. REVIEW OF SYSTEMS: CONSTITUTIONAL: No fever, no malaise, no fatigue. HEENT: No recent visual problems or hearing problems. Denied any sore throat. CARDIOVASCULAR: No chest pain, orthopnea, PND, no palpitations, no syncope. PULMONARY: No shortness of breath, no cough, no hemoptysis. GASTROINTESTINAL: No diarrhea, no nausea, no vomiting, no abdominal pain. NEUROLOGICAL: No headaches, no weakness, no numbness. HEMATOLOGICAL: Denies any bleeding or petechiae. GENITOURINARY: Denies any burning micturition, frequency, or urgency. MUSCULOSKELETAL/RHEUMATOLOGICAL: Denies any joint pain, swelling, or any muscle pain. ENDOCRINE: Denies any polyuria or polydipsia. The rest of the 14-point review of systems is negative. PHYSICAL EXAMINATION: GENERAL: The patient is alert and oriented x3, not in any acute distress. Well developed, well nourished. HEENT: Pupils are round and equally reacting to light. EOMI. No scleral icterus. No conjunctival pallor. Normocephalic, atraumatic. No pharyngeal erythema. No thyromegaly. CARDIOVASCULAR: S1 and S2 present. No murmurs, rubs, or gallops. PULMONARY: Chest is clear to auscultation, no wheezing or crackles. ABDOMEN: Soft, nontender, nondistended, normoactive bowel sounds. No palpable organomegaly. MUSCULOSKELETAL: No joint swelling or deformity. EXTREMITIES: No cyanosis, clubbing, or pedal edema. NEUROLOGICAL: Gross neurological examination did not reveal any focal deficits. SKIN: No rashes. Assessment and plan -Hematuria and hematoma from the nephrostomy tube site which is presently re moved. Monitor hemoglobin. -Leukocytosis reactive in nature without any evidence of UTI but will leave the decision of antibiotics to neurology -Hypokalemia: Potassium was replaced -History of fibromyalgia will continue with the Lyrica -Gastroesophageal reflux disease -History of kidney stones in the past status post nephrostomy which was removed today DVT prophylaxis: As per primary service Past Medical History Past Medical History: Fibromyalgia, GERD/Reflux Additional Past Medical History / Comment(s): "chronic bronchitis", seasonal allergies History of Any Multi-Drug Resistant Organisms: None Reported Past Surgical History: Hernia Repair, Tonsillectomy Additional Past Surgical History / Comment(s): sinus surg.Kidney surgery. Past Anesthesia/Blood Transfusion Reactions: No Reported Reaction Past Psychological History: No Psychological Hx Reported Smoking Status: Former smoker Past Alcohol Use History: None Reported Past Drug Use History: None Reported - Past Family History Father Family Medical History: Cancer Medications and Allergies Home Medications Medication Instructions Recorded Confirmed Type Multivitamins, Thera [Multivitamin 1 tab PO DAILY 12/22/22 01/03/23 History (formulary)] Pregabalin 100 mg PO QID 12/22/22 01/03/23 History Ketorolac [Toradol] 10 mg PO Q6HR PRN #15 tab 12/29/22 01/03/23 Rx Famotidine [Pepcid] 20 mg PO DAILY #30 tablet 01/02/23 01/03/23 Rx cefUROXime axetiL [Ceftin] 500 mg PO BID 20 Days #10 tab 01/02/23 01/03/23 Rx Allergies Allergy/AdvReac Type Severity Reaction Status Date / Time dicyclomine [From Bentyl] Allergy Rapid Verified 01/02/23 21:58 Heart Rate moxifloxacin [From Avelox] Allergy Anaphylaxis Verified 01/02/23 21:58 Penicillins Allergy Unknown Verified 01/02/23 21:58 Childhood Sulfa (Sulfonamide Allergy Unknown Verified 01/02/23 21:58 Antibiotics) Childhood bacitracin AdvReac skin Verified 01/02/23 21:58 [From Neosporin blisters ([id number])] neomycin AdvReac skin Verified 01/02/23 21:58 [From Neosporin blisters ([id number])] polymyxin B AdvReac skin Verified 01/02/23 21:58 [From Neosporin blisters ([id number])] Physical Exam Vitals: Vital Signs Temp Pulse Resp BP Pulse Ox 01/03/23 09:36 86 22 145/82 96 01/03/23 07:51 99.0 F 83 20 154/82 96 01/03/23 06:06 85 16 159/81 95 01/03/23 04:00 88 18 147/88 95 01/03/23 03:00 98 16 138/86 99 01/03/23 01:00 105 H 16 150/80 95 01/02/23 22:44 113 H 20 161/90 96 01/02/23 21:54 98.1 F 120 H 18 134/75 95 Intake and Output 01/02/23 01/03/23 01/03/23 22:59 06:59 14:59 Other: Weight 81.647 kg Results CBC & Chem 7: 01/03/23 05:58 01/02/23 22:25 Labs: Abnormal Lab Results - Last 24 Hours (Table) 01/02/23 01/02/23 01/03/23 Range/Units 22:25 22:25 03:35 WBC 18.3 H (3.8-10.6) k/uL RBC 4.08 L (4.30-5.90) m/uL Hgb 12.1 L (13.0-17.5) gm/dL Hct 35.9 L (39.0-53.0) % Neutrophils # 15.7 H (1.3-7.7) k/uL Monocytes # (0-1.0) k/uL Potassium 3.4 L (3.5-5.1) mmol/L Carbon Dioxide 21 L (22-30) mmol/L Glucose 134 H (74-99) mg/dL Total Protein 5.6 L (6.3-8.2) g/dL Albumin 3.1 L (3.5-5.0) g/dL Ur Specific [place] 1.050 H (1.001-1.035) Urine Protein Trace H (Negative) Urine Ketones 2+ H (Negative) Urine Blood Large H (Negative) Urine RBC >182 H (0-5) /hpf Urine WBC 7 H (0-5) /hpf Urine Bacteria Rare H (None) /hpf Urine Mucus Rare H (None) /hpf 01/03/23 Range/Units 05:58 WBC 18.3 H (3.8-10.6) k/uL RBC 3.57 L (4.30-5.90) m/uL Hgb 10.5 L (13.0-17.5) gm/dL Hct 31.4 L (39.0-53.0) % Neutrophils # 15.3 H (1.3-7.7) k/uL Monocytes # 1.2 H (0-1.0) k/uL Potassium (3.5-5.1) mmol/L Carbon Dioxide (22-30) mmol/L Glucose (74-99) mg/dL Total Protein (6.3-8.2) g/dL Albumin (3.5-5.0) g/dL Ur Specific [place] (1.001-1.035) Urine Protein (Negative) Urine Ketones (Negative) Urine Blood (Negative) Urine RBC (0-5) /hpf Urine WBC (0-5) /hpf Urine Bacteria (None) /hpf Urine Mucus (None) /hpf
[2023-01-03] MEDS: HYDROmorphone 1 MG/ML 1 ML SYRINGE IVP PRN (21:50)
--- NOTE | 2023-01-03 22:17 | P.GSHP ---
History of Present Illness H&P Date: 01/03/23 Chief Complaint: Right flank ecchymosis and pain The patient is a 72-year-old white male who underwent a right percutaneous nephrolithotomy on 12/28/2022. He was discharged home but subsequently readmitted with chest pain and hemoptysis. A venous Doppler study ruled out a D VT. He was discharged home yesterday, but returned overnight with complaints of increasing right lower quadrant abdominal pain radiating to the groin and worsening of his right flank ecchymosis. The urine draining through the nephrostomy tube also became increasingly bloody. He is able to void without difficulty, and voided urine is blood tinged. - Constitutional Constitutional: Denies chills, Denies fever - Cardiovascular Cardiovascular: Denies high blood pressure - Respiratory Respiratory: Denies dyspnea - Genitourinary (Male) Genitourinary: Reports flank pain, Reports hematuria Past Medical History Past Medical History: Fibromyalgia, GERD/Reflux Additional Past Medical History / Comment(s): "chronic bronchitis", seasonal allergies History of Any Multi-Drug Resistant Organisms: None Reported Past Surgical History: Hernia Repair, Tonsillectomy Additional Past Surgical History / Comment(s): sinus surg.Kidney surgery. Past Anesthesia/Blood Transfusion Reactions: No Reported Reaction Past Psychological History: No Psychological Hx Reported Smoking Status: Former smoker Past Alcohol Use History: None Reported Past Drug Use History: None Reported - Past Family History Father Family Medical History: Cancer Medications and Allergies Home Medications Medication Instructions Recorded Confirmed Type Multivitamins, Thera [Multivitamin 1 tab PO DAILY 12/22/22 01/03/23 History (formulary)] Pregabalin 100 mg PO QID 12/22/22 01/03/23 History Ketorolac [Toradol] 10 mg PO Q6HR PRN #15 tab 12/29/22 01/03/23 Rx Famotidine [Pepcid] 20 mg PO DAILY #30 tablet 01/02/23 01/03/23 Rx cefUROXime axetiL [Ceftin] 500 mg PO BID 20 Days #10 tab 01/02/23 01/03/23 Rx Allergies Allergy/AdvReac Type Severity Reaction Status Date / Time dicyclomine [From Bentyl] Allergy Rapid Verified 01/02/23 21:58 Heart Rate moxifloxacin [From Avelox] Allergy Anaphylaxis Verified 01/02/23 21:58 Penicillins Allergy Unknown Verified 01/02/23 21:58 Childhood Sulfa (Sulfonamide Allergy Unknown Verified 01/02/23 21:58 Antibiotics) Childhood bacitracin AdvReac skin Verified 01/02/23 21:58 [From Neosporin blisters ([id number])] neomycin AdvReac skin Verified 01/02/23 21:58 [From Neosporin blisters ([id number])] polymyxin B AdvReac skin Verified 01/02/23 21:58 [From Neosporin blisters ([id number])] Surgical - Exam Vital Signs Temp Pulse Resp BP Pulse Ox 98.1 F 120 H 18 134/75 95 01/02/23 21:54 01/02/23 21:54 01/02/23 21:54 01/02/23 21:54 01/02/23 21:54 - General well developed, well nourished, no distress - Respiratory normal respiratory effort - Abdomen Soft, non-distended, non-tender. Significant right flank ecchymosis is noted. The nephrostomy tube is draining urine which is bloody in appearance. - Psychiatric oriented to time, oriented to person, oriented to place, speech is normal, memory intact Results - Labs 01/03/23 05:58 01/02/23 22:25 Abnormal Lab Results - Last 24 Hours (Table) 01/02/23 01/02/23 01/03/23 Range/Units 22:25 22:25 03:35 WBC 18.3 H (3.8-10.6) k/uL RBC 4.08 L (4.30-5.90) m/uL Hgb 12.1 L (13.0-17.5) gm/dL Hct 35.9 L (39.0-53.0) % Neutrophils # 15.7 H (1.3-7.7) k/uL Monocytes # (0-1.0) k/uL Potassium 3.4 L (3.5-5.1) mmol/L Carbon Dioxide 21 L (22-30) mmol/L Glucose 134 H (74-99) mg/dL Total Protein 5.6 L (6.3-8.2) g/dL Albumin 3.1 L (3.5-5.0) g/dL Ur Specific Transfer 1.050 H (1.001-1.035) Urine Protein Trace H (Negative) Urine Ketones 2+ H (Negative) Urine Blood Large H (Negative) Urine RBC >182 H (0-5) /hpf Urine WBC 7 H (0-5) /hpf Urine Bacteria Rare H (None) /hpf Urine Mucus Rare H (None) /hpf 01/03/23 Range/Units 05:58 WBC 18.3 H (3.8-10.6) k/uL RBC 3.57 L (4.30-5.90) m/uL Hgb 10.5 L (13.0-17.5) gm/dL Hct 31.4 L (39.0-53.0) % Neutrophils # 15.3 H (1.3-7.7) k/uL Monocytes # 1.2 H (0-1.0) k/uL Potassium (3.5-5.1) mmol/L Carbon Dioxide (22-30) mmol/L Glucose (74-99) mg/dL Total Protein (6.3-8.2) g/dL Albumin (3.5-5.0) g/dL Ur Specific Transfer (1.001-1.035) Urine Protein (Negative) Urine Ketones (Negative) Urine Blood (Negative) Urine RBC (0-5) /hpf Urine WBC (0-5) /hpf Urine Bacteria (None) /hpf Urine Mucus (None) /hpf Diabetes panel 01/02/23 Range/Units 22:25 Sodium 137 (137-145) mmol/L Potassium 3.4 L (3.5-5.1) mmol/L Chloride 106 (98-107) mmol/L Carbon Dioxide 21 L (22-30) mmol/L BUN 12 (9-20) mg/dL Creatinine 0.68 (0.66-1.25) mg/dL Glucose 134 H (74-99) mg/dL Calcium 8.6 (8.4-10.2) mg/dL AST 24 (17-59) U/L ALT 16 (4-49) U/L Alkaline Phosphatase 69 (38-126) U/L Total Protein 5.6 L (6.3-8.2) g/dL Albumin 3.1 L (3.5-5.0) g/dL Calcium panel 01/02/23 Range/Units 22:25 Calcium 8.6 (8.4-10.2) mg/dL Albumin 3.1 L (3.5-5.0) g/dL Pituitary panel 01/02/23 Range/Units 22:25 Sodium 137 (137-145) mmol/L Potassium 3.4 L (3.5-5.1) mmol/L Chloride 106 (98-107) mmol/L Carbon Dioxide 21 L (22-30) mmol/L BUN 12 (9-20) mg/dL Creatinine 0.68 (0.66-1.25) mg/dL Glucose 134 H (74-99) mg/dL Calcium 8.6 (8.4-10.2) mg/dL Adrenal panel 01/02/23 Range/Units 22:25 Sodium 137 (137-145) mmol/L Potassium 3.4 L (3.5-5.1) mmol/L Chloride 106 (98-107) mmol/L Carbon Dioxide 21 L (22-30) mmol/L BUN 12 (9-20) mg/dL Creatinine 0.68 (0.66-1.25) mg/dL Glucose 134 H (74-99) mg/dL Calcium 8.6 (8.4-10.2) mg/dL Total Bilirubin 0.8 (0.2-1.3) mg/dL AST 24 (17-59) U/L ALT 16 (4-49) U/L Alkaline Phosphatase 69 (38-126) U/L Total Protein 5.6 L (6.3-8.2) g/dL Albumin 3.1 L (3.5-5.0) g/dL - Imaging CT scan - abdomen: report reviewed, image reviewed Assessment and Plan Assessment: I have examined the patient and reviewed the CT scan. There is a small amount of fluid within the right pleural space, unchanged from the prior computed tomography scan. This may represent hydrothorax or hemothorax, and is stable. The nephrostomy tube is well positioned within the right renal pelvis. Thickening of the subcutaneous tissues is consistent with the ecchymosis observed. (1) Blood loss anemia Current Visit: Yes Status: Acute Code(s): D50.0 - IRON DEFICIENCY ANEMIA SECONDARY TO BLOOD LOSS (CHRONIC) SNOMED Code(s): 656839316 (2) Retroperitoneal hemorrhage Current Visit: Yes Status: Acute Code(s): R58 - HEMORRHAGE, NOT ELSEWHERE CLASSIFIED SNOMED Code(s): 41637203 Plan: The nephrostomy tube was removed at the bedside, and a sterile gauze dressing was applied over the surgical site. The patient will be admitted for observ ation. He will be treated with IV hydration and parenteral analgesics, and his hemoglobin level will be monitored.
[2023-01-03] MEDS: DEXTROSE 5%-0.9% NACL 1,000 ML IV SCH (22:56)
--- NOTE | 2023-01-04 08:36 | P.PN ---
Subjective Progress Note Date: 01/04/23 The patient is one week sp pcnl right. He came to the hospital with gross hematuria. He has a retroperitoneal hematoma. He is voiding old blood with clots Objective - Vital Signs Vital signs: Vital Signs Temp 98.2 F 01/04/23 03:52 Pulse 77 01/04/23 03:52 Resp 18 01/04/23 03:52 BP 153/78 01/04/23 03:52 Pulse Ox 94 L 01/04/23 03:52 FiO2 Intake & Output 01/03/23 01/04/23 01/04/23 18:59 06:59 18:59 Intake Total 400 Balance 400 Weight 81.647 kg Intake: Oral 400 - Genitourinary Genitourinary Comment(s): There is a notable ecchymosis in the right flank where the pcnl was done. - Labs CBC & Chem 7: 01/03/23 05:58 01/02/23 22:25 Assessment and Plan Assessment: Impression: right flank hematoma with gross hematuria post pcnl Plan: We will continue to observe him His hgb was stable through yesterday. the voided urine is old blood.
[2023-01-04 08:54] LABS: HCT 32.8 % (39.0-53.0); HGB 10.8 gm/dL (13.0-17.5); MCHC 32.9 g/dL (31.0-37.0); MCV 88.2 fL (80.0-100.0); Mean Platelet Volume 7.4; Platelet Count 431 k/uL (150-450); RBC 3.72 m/uL (4.30-5.90); RDW 14.4 % (11.5-15.5)
[2023-01-04 08:59] LABS: African American GFR (CKD) >90 (>60 ml/min/1.73 sqM); Anion Gap 9 mmol/L; Blood Urea Nitrogen 14 mg/dL (9-20); Calcium 8.5 mg/dL (8.4-10.2); Carbon Dioxide 21 mmol/L (22-30); Chloride 108 mmol/L (98-107); Glucose 118 mg/dL (74-99); Non-African American GFR(CKD) >90 (>60 ml/min/1.73 sqM); Potassium 3.6 mmol/L (3.5-5.1); Sodium 138 mmol/L (137-145)
[2023-01-04] MEDS: FAMOTIDINE 20 MG TAB PO SCH (09:08)
[2023-01-04] MEDS: ONDANSETRON 4 MG/2 ML VIAL IVP PRN ×2 (09:08→15:29)
[2023-01-04] MEDS: DEXTROSE 5%-0.9% NACL 1,000 ML IV SCH ×2 (11:47→21:04)
[2023-01-04] MEDS: MORPHINE SULFATE 4 MG/ML SYRINGE IVP PRN (19:14)
[2023-01-04] MEDS: HYDROmorphone 1 MG/ML 1 ML SYRINGE IVP PRN (20:58)
--- NOTE | 2023-01-05 07:03 | P.PN ---
Subjective Progress Note Date: 01/04/23 - Reason for Consult Leukocytosis, hypokalemia - History of Present Illness 72-year-old pleasant male came in after hematuria be a nephrostomy tube which is presently removed patient also had hematoma with a drop in hemoglobin from 12 to 10. Patient doesn't have any fever does have leukocytosis which is reactive secondary to hematuria and hematoma. Patient denied any dysuria able to urinate at this time. Patient doesn't have a WBC in the urine does have significant RBC clinically doesn't appear to have urinary tract infection. Patient is presently not on any antibiotics. Patient is fairly healthy male. 01/04/2023 Patient is seen and evaluated in follow-up today and being followed with urology. Patient continues to have old blood and clots noted in the urine and is using a urinal or bathroom with no [place] at this time. Patient's white count remains elevated and will obtain pro-calcitonin. Encouraged to increase activity as tolerated and oral intake. Patient is currently afebrile with no reported chest pain or shortness of breath. Patient denies nausea and tolerating diet. Review of systems: Constitutional: No reports of fatigue, fever, or chills Cardiovascular: No reports of chest pain or palpitations Respiratory: No reports of shortness of breath or cough GI: No reports of nausea, vomiting, or diarrhea : No reports of dysuria or retention, reports continued blood clots and blood noted in the urine Neurovascular: No reports of weakness or numbness All medications have been reviewed PHYSICAL EXAMINATION: GENERAL: The patient is alert and oriented x3, not in any acute distress. Well developed, well nourished. HEENT: Pupils are round and equally reacting to light. EOMI. No scleral icterus. No conjunctival pallor. Normocephalic, atraumatic. No pharyngeal erythema. No thyromegaly. CARDIOVASCULAR: S1 and S2 present. No murmurs, rubs, or gallops. PULMONARY: Chest is clear to auscultation, no wheezing or crackles. ABDOMEN: Soft, nontender, nondistended, normoactive bowel sounds. No palpable organomegaly. MUSCULOSKELETAL: No joint swelling or deformity. EXTREMITIES: No cyanosis, clubbing, or pedal edema. NEUROLOGICAL: Gross neurological examination did not reveal any focal deficits. SKIN: No rashes. Assessment: -Hematuria and hematoma from the nephrostomy tube site which is presently removed. Monitor hemoglobin. -Leukocytosis reactive in nature without any evidence of UTI but will leave the decision of antibiotics to urology -Hypokalemia: Potassium was replaced -History of fibromyalgia -Gastroesophageal reflux disease -History of kidney stones in the past status post nephrostomy which was removed this admission -DVT prophylaxis: As per primary service -GI prophylaxis -Full code Plan: Patient is continued 3 monitored with urology following the patient reporting continues to have blood noted in the urine and clots and has been up and voiding with no difficulties Encouraged to increase activity as tolerated White count elevated at 20 with no active signs of infection although will obtain pro-calcitonin, WBC likely reactive. Repeat labs ordered for a.m. Encouraged oral intake We will continue to follow during hospitalization with urology. Thank you kindly for this consultation. The impression and plan of care has been dictated by Fozia Tello Nurse Pract itioner as directed. Dr. Jeanette MD I have performed a history and examination and MDM of this patient, discussed the same with the dictator, and agree with the dictator's assessment and plan as written ,documented as a scribe. Based on total visit time, I have performed more than 50% of the visit. Objective - Vital Signs Vital signs: Vital Signs Temp 98.2 F 01/04/23 03:52 Pulse 77 01/04/23 03:52 Resp 18 01/04/23 03:52 BP 153/78 01/04/23 03:52 Pulse Ox 94 L 01/04/23 03:52 FiO2 Intake & Output 01/03/23 01/04/23 01/04/23 18:59 06:59 18:59 Intake Total 400 Balance 400 Weight 81.647 kg Intake: Oral 400 - Labs CBC & Chem 7: 01/04/23 08:24 01/04/23 08:24 Labs: Abnormal Lab Results - Last 24 Hours (Table) 01/04/23 01/04/23 Range/Units 08:24 08:24 WBC 20.0 H (3.8-10.6) k/uL RBC 3.72 L (4.30-5.90) m/uL Hgb 10.8 L (13.0-17.5) gm/dL Hct 32.8 L (39.0-53.0) % Chloride 108 H (98-107) mmol/L Carbon Dioxide 21 L (22-30) mmol/L Creatinine 0.61 L (0.66-1.25) mg/dL Glucose 118 H (74-99) mg/dL
[2023-01-05 07:56] LABS: Basophils # (A) 0.1 k/uL (0-0.2); Basophils % (A) 0 %; Eosinophils # (A) 0.6 k/uL (0-0.7); Eosinophils % (A) 3 %; HCT 31.9 % (39.0-53.0); HGB 10.4 gm/dL (13.0-17.5); Lymphocytes # (A) 1.8 k/uL (1.0-4.8); Lymphocytes % (A) 11 %; MCH 29.3 pg (25.0-35.0); MCHC 32.8 g/dL (31.0-37.0); MCV 89.5 fL (80.0-100.0); Mean Platelet Volume 7.5; Monocytes # (A) 1.1 k/uL (0-1.0); Monocytes % (A) 6 %; Neutrophils # (A) 13.4 k/uL (1.3-7.7); Neutrophils % (A) 78 %; Platelet Count 445 k/uL (150-450); RBC 3.56 m/uL (4.30-5.90); RDW 14.4 % (11.5-15.5); WBC 17.1 k/uL (3.8-10.6)
[2023-01-05 08:07] LABS: African American GFR (CKD) >90 (>60 ml/min/1.73 sqM); Anion Gap 6 mmol/L; Blood Urea Nitrogen 12 mg/dL (9-20); Calcium 8.4 mg/dL (8.4-10.2); Carbon Dioxide 25 mmol/L (22-30); Chloride 107 mmol/L (98-107); Glucose 118 mg/dL (74-99); Non-African American GFR(CKD) >90 (>60 ml/min/1.73 sqM); Potassium 3.9 mmol/L (3.5-5.1); Sodium 138 mmol/L (137-145)
[2023-01-05] MEDS: MORPHINE SULFATE 4 MG/ML SYRINGE IVP PRN ×3 (08:49→20:00)
[2023-01-05] MEDS: ONDANSETRON 4 MG/2 ML VIAL IVP PRN ×2 (08:49→19:59)
[2023-01-05] MEDS: DEXTROSE 5%-0.9% NACL 1,000 ML IV SCH (08:50)
[2023-01-05] MEDS: PREGABALIN 100 MG CAP PO PRN (10:21)
[2023-01-05] MEDS: FAMOTIDINE 20 MG TAB PO SCH (10:21)
[2023-01-05] MEDS ORDERED: SIMETHICONE 40 MG/0.6 ML DROPS 2,000 MG/30 ML BOTTLE PO PRN (14:29)
[2023-01-05] MEDS: CALCIUM CARBONATE 500 MG CHEWABLE PO PRN (14:35)
--- NOTE | 2023-01-05 18:33 | P.PN ---
Subjective Progress Note Date: 01/05/23 Principal diagnosis: Right perinephric and flank hematoma Mr. Luciano states that he is feeling much better today. His pain is improved, and his appetite is returning. He continues to report hematuria but states that this is much improved. Objective - Vital Signs Vital signs: Vital Signs Temp 98.5 F 01/05/23 16:00 Pulse 91 01/05/23 16:00 Resp 20 01/05/23 16:00 BP 146/73 01/05/23 16:00 Pulse Ox 94 L 01/05/23 16:00 FiO2 Intake & Output 01/04/23 01/05/23 01/05/23 18:59 06:59 18:59 Intake Total 478 358 Output Total 410 150 Balance 478 -410 208 Intake: Oral 478 358 Output: Urine 410 150 Other: Voiding Method Toilet Urinal # Voids 2 1 # Bowel Movements 1 - Constitutional General appearance: Present: average body habitus, no acute distress - Gastrointestinal Gastrointestinal Comment(s): Soft, non-distended, non-tender. Right flank ecchymosis is unchanged. - Labs CBC & Chem 7: 01/05/23 07:17 01/05/23 07:17 Labs: Abnormal Lab Results - Last 24 Hours (Table) 01/04/23 01/05/23 01/05/23 Range/Units 08:24 07:17 07:17 WBC 17.1 H (3.8-10.6) k/uL RBC 3.56 L (4.30-5.90) m/uL Hgb 10.4 L (13.0-17.5) gm/dL Hct 31.9 L (39.0-53.0) % Neutrophils # 13.4 H (1.3-7.7) k/uL Monocytes # 1.1 H (0-1.0) k/uL Glucose 118 H (74-99) mg/dL Procalcitonin 0.16 H (0.02-0.09) ng/mL Assessment and Plan (1) Blood loss anemia Current Visit: Yes Status: Acute Code(s): D50.0 - IRON DEFICIENCY ANEMIA SECONDARY TO BLOOD LOSS (CHRONIC) SNOMED Code(s): 537088285 (2) Retroperitoneal hemorrhage Current Visit: Yes Status: Acute Code(s): R58 - HEMORRHAGE, NOT ELSEWHERE CLASSIFIED SNOMED Code(s): 32405893 Plan: The patient's condition is much improved. His hemoglobin level is stable but his leukocytosis has persisted but he is afebrile and there is no focus of infection. It is felt that the leukocytosis is likely reactive. Consider discharge home tomorrow if his condition continues to improve.
[2023-01-05] MEDS: HYDROmorphone 1 MG/ML 1 ML SYRINGE IVP PRN (23:14)
[2023-01-05 23:48] VITALS: PULSE 85
[2023-01-06] MEDS: MORPHINE SULFATE 4 MG/ML SYRINGE IVP PRN (00:57)
[2023-01-06] MEDS: DEXTROSE 5%-0.9% NACL 1,000 ML IV SCH (01:58)
[2023-01-06] MEDS: CALCIUM CARBONATE 500 MG CHEWABLE PO PRN (01:58)
[2023-01-06] MEDS: HYDROmorphone 1 MG/ML 1 ML SYRINGE IVP PRN (04:10)
[2023-01-06 04:26] VITALS: RESP 18
--- NOTE | 2023-01-06 06:17 | P.PN ---
Subjective Progress Note Date: 01/05/23 - Reason for Consult Leukocytosis, hypokalemia - History of Present Illness 72-year-old pleasant male came in after hematuria be a nephrostomy tube which is presently removed patient also had hematoma with a drop in hemoglobin from 12 to 10. Patient doesn't have any fever does have leukocytosis which is reactive secondary to hematuria and hematoma. Patient denied any dysuria able to urinate at this time. Patient doesn't have a WBC in the urine does have significant RBC clinically doesn't appear to have urinary tract infection. Patient is presently not on any antibiotics. Patient is fairly healthy male. 01/04/2023 Patient is seen and evaluated in follow-up today and being followed with urology. Patient continues to have old blood and clots noted in the urine and is using a urinal or bathroom with no Lowery at this time. Patient's white count remains elevated and will obtain pro-calcitonin. Encouraged to increase activity as tolerated and oral intake. Patient is currently afebrile with no reported chest pain or shortness of breath. Patient denies nausea and tolerating diet. 01/05/2023 Patient is seen and evaluated in follow-up today reporting continued lower abdominal pain as well as testicle pain although reports this has been chronic patient is reporting some clearance of the urine and denies any feelings of retention or hesitancy. Patient remains with an elevated white count although appears mostly reactive patient is not having any signs of infection. Patient has been up and walking and getting to the bathroom with no difficulties. Patient being monitored overnight for improvement in pain with possible discha rge planning in the next 24 hours. Hemoglobin remained stable. Patient denies any chest pain or shortness of breath and remains afebrile. Pro-calcitonin was 0.17 Review of systems: Constitutional: No reports of fatigue, fever, or chills Cardiovascular: No reports of chest pain or palpitations Respiratory: No reports of shortness of breath or cough GI: No reports of nausea, vomiting, or diarrhea, reported gas and bloating : No reports of dysuria or retention, reports improving urine Neurovascular: No reports of weakness or numbness All medications have been reviewed PHYSICAL EXAMINATION: GENERAL: The patient is alert and oriented x3, not in any acute distress. Well developed, well nourished. HEENT: Pupils are round and equally reacting to light. EOMI. No scleral icterus. No conjunctival pallor. Normocephalic, atraumatic. No pharyngeal erythema. No thyromegaly. CARDIOVASCULAR: S1 and S2 present. No murmurs, rubs, or gallops. PULMONARY: Chest is clear to auscultation, no wheezing or crackles. ABDOMEN: Soft, tenderness noted on palpation of the lower left and right quadra nts, nondistended, normoactive bowel sounds. No palpable organomegaly. MUSCULOSKELETAL: No joint swelling or deformity. EXTREMITIES: No cyanosis, clubbing, or pedal edema. NEUROLOGICAL: Gross neurological examination did not reveal any focal deficits. SKIN: No rashes. Assessment: -Hematuria and hematoma from the nephrostomy tube site which is presently removed. Hematuria improving -Leukocytosis reactive in nature without any evidence of UTI procalcitonin 0.17 -Hypokalemia: Improved after replacement -History of fibromyalgia -Gastroesophageal reflux disease -History of kidney stones in the past status post nephrostomy which was removed this admission -DVT prophylaxis: As per primary service -GI prophylaxis -Full code Plan: Patient is continued with urology following the patient reporting clearance of blood noted in the urine and has been up and voiding with no difficulties Encouraged to increase activity as tolerated White count elevated although trending down with no active signs of infection pro-calcitonin 0.17, WBC likely reactive. Repeat labs ordered for a.m. Encouraged oral intake Discussion of possible discharge in the next 24 hours. Monitoring overnight for continued urinary output and pain control We will continue to follow during hospitalization with urology. Thank you kindly for this consultation. The impression and plan of care has been dictated by Fozia Tello, Nurse Practitioner as directed. Dr. Jeanette MD I have performed a history and examination and MDM of this patient, discussed the same with the dictator, and agree with the dictator's assessment and plan as written ,documented as a scribe. Based on total visit time, I have performed more than 50% of the visit. Objective - Vital Signs Vital signs: Vital Signs Temp 98.2 F 01/05/23 03:05 Pulse 79 01/05/23 03:05 Resp 20 01/05/23 03:05 BP 131/71 01/05/23 03:05 Pulse Ox 92 L 01/05/23 03:05 FiO2 Intake & Output 01/04/23 01/05/23 01/05/23 18:59 06:59 18:59 Intake Total 478 Output Total 210 Balance 478 -210 Intake: Oral 478 Output: Urine 210 Other: Voiding Method Toilet # Voids 2 1 # Bowel Movements 1 - Labs CBC & Chem 7: 01/05/23 07:17 01/05/23 07:17 Labs: Abnormal Lab Results - Last 24 Hours (Table) 01/04/23 01/04/23 01/04/23 Range/Units 08:24 08:24 08:24 WBC 20.0 H (3.8-10.6) k/uL RBC 3.72 L (4.30-5.90) m/uL Hgb 10.8 L (13.0-17.5) gm/dL Hct 32.8 L (39.0-53.0) % Chloride 108 H (98-107) mmol/L Carbon Dioxide 21 L (22-30) mmol/L Creatinine 0.61 L (0.66-1.25) mg/dL Glucose 118 H (74-99) mg/dL Procalcitonin 0.16 H (0.02-0.09) ng/mL
--- NOTE | 2023-01-06 07:42 | P.DS ---
Providers Date of admission: 01/05/23 08:04 Attending physician: Lopez Ovalle Consults: 01/03/23 08:40 Consult Physician Routine Consulting Provider: Kamaljit Morelos Reason/Comments: Medical management Do you want consulting provider notified?: Yes Primary care physician: [facility] Hospital Course: The patient was admitted to the hospital 01/03/23. He underwent a right percutaneous nephrostolithotomy for large kidney stone 12/28/22. He is discharged on 12/29/2022. This was admitted to the hospital because of hematuria and possible pneumonia. He had some blood in the lung. There is question whether the nephrostomy tube traversed the lung but it did not appear to on ultrasound and computed tomography scan. He was discharged home 1016 only to return back to the hospital some blood in the urine on 1016. He has remained in the hospital. The blood in the urine has cleared. The flank hematoma is stable. His hemoglobin is stable on computed tomography scan and based on follow-up hemoglobin. Doing well on urinating okay. Pain is under control. He'll be discharged home. He'll follow-up in the office in one week. It has been discussed that'll take a while for the hematoma to resolve. Since he urine is clear he can be discharged home. His pain medicine and antibiotic at home. He'll follow-up in the office in one week. Postoperative instructions been given. Condition is good. Patient Condition at Discharge: Stable Plan - Discharge Summary Discharge Rx Participant: No New Discharge Prescriptions: No Action Multivitamins, Thera [Multivitamin (formulary)] 1 tab PO DAILY Ketorolac [Toradol] 10 mg PO Q6HR PRN #15 tab PRN Reason: Pain Famotidine [Pepcid] 20 mg PO DAILY #30 tablet cefUROXime axetiL [Ceftin] 500 mg PO BID 20 Days #10 tab Pregabalin 100 mg PO QID Discharge Medication List Multivitamins, Thera [Multivitamin (formulary)] 1 tab PO DAILY 12/22/22 [History] Pregabalin 100 mg PO QID 12/22/22 [History] Ketorolac [Toradol] 10 mg PO Q6HR PRN #15 tab 12/29/22 [Rx] Famotidine [Pepcid] 20 mg PO DAILY #30 tablet 01/02/23 [Rx] cefUROXime axetiL [Ceftin] 500 mg PO BID 20 Days #10 tab 01/02/23 [Rx] Follow up Appointment(s)/Referral(s): Marquis Kat [Primary Care Provider] - 1-2 days Giovanni Mcguire MD [STAFF PHYSICIAN] - 1 Week Discharge Disposition: HOME SELF-CARE
[2023-01-06 08:04] VITALS: BP 135/79; TEMP 98.3
[2023-01-06] MEDS: PREGABALIN 100 MG CAP PO PRN (09:06)
[2023-01-06] MEDS: FAMOTIDINE 20 MG TAB PO SCH (09:06)
--- NOTE | 2023-01-06 19:10 | P.PN ---
Subjective Progress Note Date: 01/06/23 - Reason for Consult Leukocytosis, hypokalemia - History of Present Illness 72-year-old pleasant male came in after hematuria be a nephrostomy tube which is presently removed patient also had hematoma with a drop in hemoglobin from 12 to 10. Patient doesn't have any fever does have leukocytosis which is reactive secondary to hematuria and hematoma. Patient denied any dysuria able to urinate at this time. Patient doesn't have a WBC in the urine does have significant RBC clinically doesn't appear to have urinary tract infection. Patient is presently not on any antibiotics. Patient is fairly healthy male. 01/04/2023 Patient is seen and evaluated in follow-up today and being followed with urology. Patient continues to have old blood and clots noted in the urine and is using a urinal or bathroom with no Lowery at this time. Patient's white count remains elevated and will obtain pro-calcitonin. Encouraged to increase activity as tolerated and oral intake. Patient is currently afebrile with no reported chest pain or shortness of breath. Patient denies nausea and tolerating diet. 01/05/2023 Patient is seen and evaluated in follow-up today reporting continued lower abdominal pain as well as testicle pain although reports this has been chronic patient is reporting some clearance of the urine and denies any feelings of retention or hesitancy. Patient remains with an elevated white count although appears mostly reactive patient is not having any signs of infection. Patient has been up and walking and getting to the bathroom with no difficulties. Patient being monitored overnight for improvement in pain with possible discha rge planning in the next 24 hours. Hemoglobin remained stable. Patient denies any chest pain or shortness of breath and remains afebrile. Pro-calcitonin was 0.17 01/06/2023 Patient is seen this morning scheduled for discharge as urine has cleared. Patient continues to report lower abdominal pain and testicular pain and patient has been instructed to continue pain medication and antibiotics by urology. Urology would like to see the patient in the office in one week. Encouraged the patient to follow-up with primary care provider this week as well. Patient is currently afebrile white count remains elevated although trending down and recommended follow-up labs in the outpatient setting as well. No reports of chest pain or shortness of breath. Not tolerating much of a diet and does not prefer the food here. Encouraged oral intake. Review of systems: Constitutional: No reports of fatigue, fever, or chills Cardiovascular: No reports of chest pain or palpitations Respiratory: No reports of shortness of breath or cough GI: No reports of nausea, vomiting, or diarrhea, reported not eating very much : No reports of dysuria or retention, reports improving urine Neurovascular: No reports of weakness or numbness All medications have been reviewed PHYSICAL EXAMINATION: GENERAL: The patient is alert and oriented x3, not in any acute distress. Well developed, well nourished. HEENT: Pupils are round and equally reacting to light. EOMI. No scleral icterus. No conjunctival pallor. Normocephalic, atraumatic. No pharyngeal erythema. No thyromegaly. CARDIOVASCULAR: S1 and S2 present. No murmurs, rubs, or gallops. PULMONARY: Chest is clear to auscultation, no wheezing or crackles. ABDOMEN: Soft, tenderness noted on palpation of the lower left and right quadrants, nondistended, normoactive bowel sounds. No palpable organomegaly. MUSCULOSKELETAL: No joint swelling or deformity. EXTREMITIES: No cyanosis, clubbing, or pedal edema. NEUROLOGICAL: Gross neurological examination did not reveal any focal deficits. SKIN: No rashes. Assessment: -Hematuria and hematoma from the nephrostomy tube site which is presently removed. Hematuria improving -Leukocytosis reactive in nature without any evidence of UTI procalcitonin 0.17 -Hypokalemia: Improved after replacement -History of fibromyalgia -Gastroesophageal reflux disease -History of kidney stones in the past status post nephrostomy which was removed this admission -DVT prophylaxis: As per primary service -GI prophylaxis -Full code Plan: Patient is continued with urology following the patient reporting clearance of blood noted in the urine and has been up and voiding with no difficulties Encouraged to increase activity as tolerated White count elevated although trending down with no active signs of infection pro-calcitonin 0.17, WBC likely reactive. Recommend labs in the outpatient setting in 1 week and close outpatient follow-up with primary care provider and urology. Encouraged oral intake Patient is being discharged today. Hemoglobin is stable and patient is afebrile and hematoma stable and instructed will take several days to weeks to resolve. Urology has cleared the patient for discharge. We will continue to follow during hospitalization with urology. Thank you kindly for this consultation. The impression and plan of care has been dictated by Fozia Tello Nurse Prac titioner as directed. Dr. Jeanette MD I have performed a history and examination and MDM of this patient, discussed the same with the dictator, and agree with the dictator's assessment and plan as written ,documented as a scribe. Based on total visit time, I have performed more than 50% of the visit. Objective - Vital Signs Vital signs: Vital Signs Temp 98.3 F 01/06/23 07:52 Pulse 85 01/06/23 07:52 Resp 18 01/06/23 08:21 BP 135/79 01/06/23 07:52 Pulse Ox 93 L 01/06/23 07:52 FiO2 Intake & Output 01/06/23 01/06/23 01/07/23 06:59 18:59 06:59 Intake Total 0 360 Output Total 550 Balance -550 360 Intake: Oral 0 360 Output: Urine 550 Other: Voiding Method Toilet Toilet Urinal # Voids 1 - Labs CBC & Chem 7: 01/05/23 07:17 01/05/23 07:17
--- NOTE | 2023-01-09 15:58 | CDI ---
Documentation Clarification Form Date: 01/09/2023 03:42:56 PM From: Fanta Whatley Phone: Admit Date: 01/05/2023 08:04:00 AM Patient Name: Pilo Luciano Visit Number: [id number] Discharge Date: 01/06/2023 10:00:00 AM ATTENTION: The Clinical Documentation Specialists (CDI) and [facility] Coding Staff appreciate your assistance in clarifying documentation. Please respond to the clarification below the line at the bottom and electronically sign. The CDI & [facility] Coding staff will review the response and follow-up if needed. Please note: Queries are made part of the Legal Health Record. If you have any questions, please contact the author of this message via ITS. Dr. Giovanni Mcguire Retroperitoneal hemorrhage is documented per ED Notes and throughout Progress Notes. Additional clarification regarding retroperitoneal hemorrhage is requested. Patients Admitting Diagnosis: postoperative bleeding secondary tolithotripsy Post-Operative Diagnosis: postoperative bleeding secondary tolithotripsy Procedure performed: underwent a rightpercutaneous nephrolithotomyon 12/28/2022 History/Risk Factors: 72yo M, Hematuriaandhematomafrom thenephrotube, leukocytosisreactive, hypokalemia, fibromyalgia, GERD, Hx kidney stones Clinical Indicators: increasingright lower quadrant abdominal painradiating to the groin and worsening of his right flankecchymosis. The urinedrainingthrough the nephrostomytube also became increasingly bloody. He is able to void without difficulty, and voided urine is blood tinged. Treatment: Intervalremovalof internalized right-sided ureteralstentwithout hydronephrosis Please clarify if Hemorrhage of incontinent external stoma of urinary tract is a complication of the surgical procedure? [ ] Yes, Hemorrhage of incontinent external stoma of urinary tract is a complication [ ] No, Hemorrhage of incontinent external stoma of urinary tract is an expected outcome [ ] Other, please specify [ ] Unable to determine (Template Last Revised: May 2020) MTDD
--- NOTE | 2023-01-12 17:31 | CDI ---
Documentation Clarification Form Date: 01/12/2023 05:22:29 PM From: Fanta Whatley Phone: Admit Date: 01/05/2023 08:04:00 AM Patient Name: Pilo Luciano Visit Number: [id number] Discharge Date: 01/06/2023 10:00:00 AM ATTENTION: The Clinical Documentation Specialists (CDI) and [facility] Coding Staff appreciate your assistance in clarifying documentation. Please respond to the clarification below the line at the bottom and electronically sign. The CDI & [facility] Coding staff will review the response and follow-up if needed. Please note: Queries are made part of the Legal Health Record. If you have any questions, please contact the author of this message via ITS. Dr. Giovanni Mcguire Thank you for acknowledging the previous query; however, it lacked the needed clarification. Retroperitoneal hemorrhageis documented per ED Notes and throughout Progress Notes. Additional clarification regardingretroperitoneal hemorrhageis requested. Patients Admitting Diagnosis:postoperative bleedingsecondary tolithotripsy Post-OperativeDiagnosis:postoperative bleedingsecondary tolithotripsy Procedure performed: underwent a rightpercutaneous nephrolithotomyon 12/28/22 History/Risk Factors: 72yo M,Hematuriaandhematomafrom thenephrotube, leukocytosisreactive,hypokalemia,fibromyalgia,GERD, Hxkidney stones Clinical Indicators: increasingRLQ abdominal painradiating to the groin and worsening of his right flankecchymosis. The urinedrainingthrough thenephrostomytube also became increasingly bloody. He is able to void without difficulty, and voided urine is blood tinged. Treatment: Intervalremovalof internalized right-sided ureteralstentwithout hydronephrosis Please clarify ifHemorrhageofincontinentexternal stoma of urinary tract is a complication ofthe surgical procedure? [ ] Yes,Hemorrhageofincontinentexternal stoma of urinary tract is a complication [ ] No,Hemorrhageofincontinentexternal stoma of urinary tract is an expected outcome [ ] other, please specify [ ] unable to determine (Template LastRevised: May 2020) Thehemorhage was from the nephrostomy tube placed for the percutaneous nephrostolithotomy MTDD
== END 2023-01-06 10:00 | disposition home or self-care (01) | DRG 919 ==
LOC: EC 20:45 → 3SCARD 01-03 08:40 → OBSVTOIN 01-05 08:04
PROVIDERS: ADMIT Urology; ATTEND Urology
PROC: 0TP980Z Removal of Drainage Device from Ureter, Via Natural or Artificial Opening Endoscopic (ICD-10-PCS; principal; 2023-01-03)
DX: N99.820 Postprocedural hemorrhage of a genitourinary system organ or structure following a genitourinary system procedure (principal); K68.3 Retroperitoneal hematoma; D62 Acute posthemorrhagic anemia; J94.2 Hemothorax; R04.2 Hemoptysis; J42 Unspecified chronic bronchitis; S30.1XXA Contusion of abdominal wall, initial encounter; D72.828 Other elevated white blood cell count; K21.9 Gastro-esophageal reflux disease without esophagitis; M79.7 Fibromyalgia; E87.6 Hypokalemia; N50.819 Testicular pain, unspecified; G89.29 Other chronic pain; R23.3 Spontaneous ecchymoses; R31.0 Gross hematuria; Z88.8 Allergy status to other drugs, medicaments and biological substances; Z88.0 Allergy status to penicillin; Z88.2 Allergy status to sulfonamides; Z88.1 Allergy status to other antibiotic agents; Z87.891 Personal history of nicotine dependence; Z87.442 Personal history of urinary calculi; Z93.6 Other artificial openings of urinary tract status
CPT/HCPCS: 36415; 74177; 76770; 80048; 80053; 81001; 84145; 85025; 85027; 85610; 85730; 86850; 86900; 86901; 96374; 96375; 96376; 99291

== ENCOUNTER 2023-01-10 06:49 | Inpatient (IN) | payer MEDICARE ==
[2023-01-10] MEDS ORDERED: ONDANSETRON 4 MG/2 ML VIAL IVP PRN (07:19)
[2023-01-10] MEDS ORDERED: NALOXONE 0.4 MG/ML 1 ML VIAL IV PRN (07:19)
--- NOTE | 2023-01-10 07:20 | ED ---
General Adult HPI - General Chief complaint: Recheck/Abnormal Lab/Rx Stated complaint: transfer Time Seen by Provider: 01/10/23 06:55 Source: patient, EMS, RN notes reviewed Mode of arrival: EMS Limitations: no limitations - History of Present Illness Initial comments: This is a 72-year-old male presents emergency Department with chief complaint of possible right perinephric abscess. Patient states that he had nephrostomy placed on the of this month, Dr. Mcguire removed large 2.4 cm kidney stone. Patient did have some postprocedural bleeding in his nephrostomy tube in which she was admitted for an observed. Patient had this removed last week and he states that he is not felt warm last couple days he's had nausea, vomiting or appetite and mild right flank pain. No reported fever. Patient presented to [facility] overnight and was found to have 7.4 cm loculated fluid collection possible abscess or postprocedural fluid collection. Patient does have white count 19,800, patient did receive fluid bolus, Zofran, Reglan, vancomycin and Rocephin but cultures were performed. - Related Data Home Medications Medication Instructions Recorded Confirmed Multivitamins, Thera [Multivitamin 1 tab PO DAILY 12/22/22 01/03/23 (formulary)] Pregabalin 100 mg PO QID 12/22/22 01/03/23 Previous Rx's Medication Instructions Recorded Ketorolac [Toradol] 10 mg PO Q6HR PRN #15 tab 12/29/22 Famotidine [Pepcid] 20 mg PO DAILY #30 tablet 01/02/23 cefUROXime axetiL [Ceftin] 500 mg PO BID 20 Days #10 tab 01/02/23 Allergies Allergy/AdvReac Type Severity Reaction Status Date / Time dicyclomine [From Bentyl] Allergy Rapid Verified 01/10/23 06:56 Heart Rate moxifloxacin [From Avelox] Allergy Anaphylaxis Verified 01/10/23 06:56 Penicillins Allergy Unknown Verified 01/10/23 06:56 Childhood Sulfa (Sulfonamide Allergy Unknown Verified 01/10/23 06:56 Antibiotics) Childhood bacitracin AdvReac skin Verified 01/10/23 06:56 [From Neosporin blisters ([id number])] neomycin AdvReac skin Verified 01/10/23 06:56 [From Neosporin blisters ([id number])] polymyxin B AdvReac skin Verified 01/10/23 06:56 [From Neosporin blisters ([id number])] Review of Systems ROS Statement: Those systems with pertinent positive or pertinent negative responses have been documented in the HPI. ROS Other: All systems not noted in ROS Statement are negative. Past Medical History Past Medical History: Fibromyalgia, GERD/Reflux Additional Past Medical History / Comment(s): "chronic bronchitis", seasonal allergies kidney stones History of Any Multi-Drug Resistant Organisms: None Reported Past Surgical History: Hernia Repair, Tonsillectomy Additional Past Surgical History / Comment(s): sinus surg.Kidney surgery. Past Anesthesia/Blood Transfusion Reactions: No Reported Reaction Past Psychological History: No Psychological Hx Reported Smoking Status: Former smoker Past Alcohol Use History: None Reported Past Drug Use History: None Reported - Past Family History Father Family Medical History: Cancer General Exam Limitations: no limitations General appearance: alert, in no apparent distress Head exam: Present: atraumatic, normocephalic, normal inspection Respiratory exam: Present: normal lung sounds bilaterally. Absent: respiratory distress, wheezes, rales, rhonchi, stridor Cardiovascular Exam: Present: regular rate, normal rhythm, normal heart sounds. Absent: systolic murmur, diastolic murmur, rubs, gallop, clicks GI/Abdominal exam: Present: soft, tenderness, normal bowel sounds. Absent: distended, guarding, rebound, rigid Back exam: Present: CVA tenderness (R). Absent: CVA tenderness (L) Course Vital Signs 01/10/23 06:53 Temperature 98 F Pulse Rate 83 Respiratory 16 Rate Blood Pressure 143/79 O2 Sat by Pulse 93 L Oximetry Medical Decision Making - Medical Decision Making Was pt. sent in by a medical professional or institution (, PA, PRINCIPAL EXAMINER, urgent care, hospital, or correction...) When possible be specific @ -[facility] Did you speak to anyone other than the patient for history (EMS, parent, family, police, friend...)? What history was obtained from this source @ -No Did you review nursing and triage notes (agree or disagree)? Why? @ -I reviewed and agree with nursing and triage notes Were old charts reviewed (outside hosp., previous admission, EMS record, old EKG, old radiological studies, urgent care reports/EKG's, correction records)? Report findings @ -Reviewed prior laboratory studies, CT Differential Diagnosis (chest pain, altered mental status, abdominal pain women, abdominal pain men, vaginal bleeding, weakness, fever, dyspnea, syncope, headache, dizziness, GI bleed, back pain, seizure, CVA, palpatations, mental health, musculoskeletal)? @ -Perinephric hematoma, abscess, pyelonephritis EKG interpreted by me (3pts min.). @ -None X-rays interpreted by me (1pt min.). @ -None done CT interpreted by me (1pt min.). @ -None done U/S interpreted by me (1pt. min.). @ -None done What testing was considered but not performed or refused? (CT, X-rays, U/S, labs)? Why? @ -None What meds were considered but not given or refused? Why? @ -None Did you discuss the management of the patient with other professionals (professionals i.e. , PA, PRINCIPAL EXAMINER, lab, RT, psych nurse, social director, finance teacher, teacher, disability liaison officer, case liner)? Give summary @ -Did discuss the case with Dr. Mcguire regarding constipation CT findings and admission] Was smoking cessation discussed for >3mins.? @ -No Was critical care preformed (if so, how long)? @ -No Were there social determinants of health that impacted care today? How? (Homelessness, low income, unemployed, alcoholism, drug addiction, transportation, low edu. Level, literacy, decrease access to med. care, custodial, r ehab)? @ -No Was there de-escalation of care discussed even if they declined (Discuss DNR or withdrawal of care, Hospice)? DNR status @ -No What co-morbidities impacted this encounter? (DM, HTN, Smoking, COPD, CAD, Cancer, CVA, ARF, Chemo, Hep., AIDS, mental health diagnosis, sleep apnea, morbid obesity)? @ -None Was patient admitted / discharged? Hospital course, mention meds given and route, prescriptions, significant lab abnormalities, going to OR and other pertinent info. @ -Patient has meant to urology services patient will be kept nothing by mouth patient was given vancomycin and Rocephin prior arrival this will be continued patient will be admitted for further treatment, possible drainage of abscess. Undiagnosed new problem with uncertain prognosis? @ -No Drug Therapy requiring intensive monitoring for toxicity (Heparin, Nitro, Insulin, Cardizem)? @ -No Were any procedures done? @ -No Diagnosis/symptom? @ -[Perinephric abscess Acute, or Chronic, or Acute on Chronic? @ -[Acute Uncomplicated (without systemic symptoms) or Complicated (systemic symptoms)? @ -complicated Side effects of treatment? @ -No Exacerbation, Progression, or Severe Exacerbation? @ -No Poses a threat to life or bodily function? How? (Chest pain, [place], [place], pneumonia, PE, COPD, DKA, ARF, appy, cholecystitis, CVA, Diverticulitis, Homicidal, Suicidal, threat to staff... and all critical care pts) @ -[Yes patient has surgical risk Disposition Clinical Impression: Perinephric hematoma, Perinephric abscess Disposition: ADMITTED IP TO THIS [facility] Condition: Fair Referrals: None,Stated [Primary Care Provider] - 1-2 days Time of Disposition: 07:19
[2023-01-10] MEDS ORDERED: VANCOMYCIN IV PER PHARMACY 1 EACH MISC MISCELLANE PRN (07:21)
[2023-01-10] MEDS ORDERED: VANCOMYCIN 1,500 MG in SODIUM CHLORIDE 0.9% 500 ML 500 ML IVPB STA (07:33)
[2023-01-10] MEDS: SODIUM CHLORIDE 0.9% 1,000 ML IV SCH ×2 (08:23→20:16)
--- NOTE | 2023-01-10 09:25 | P.GSHP ---
History of Present Illness H&P Date: 01/10/23 9-year-old gentleman who about 2 weeks ago underwent a right percutaneous nephrostolithotomy for large stone. He had some postoperative nephrostomy site bleeding leading to a perinephric and subcutaneous hematoma as well as a small rll effusion and or pneumonia. . He was readmitted to the hospital and given IV pain medicine, fluids and antibiotics. Symptoms seemed to resolve and he was discharged home late last week. He returned to [facility] emergency room yesterday and was transferred here for further evaluation. He had a computed tomography scan at [facility] that identified this perinephric and subcutaneous hematomas well as a significant right pleural effusion. His white count was 19.8. He'll be admitted for further antibiotics and evaluation and treatment. He is resting comfortably. He has had some nausea and has not been able to eat. His hemoglobin is 11.4. Upon discharge was 10.4 last week. He is not febrile. His vital signs are stable. - Constitutional Constitutional: Denies chills, Denies fever - EENT Eyes: denies blurred vision, denies pain Ears, nose, mouth and throat: Denies headache, Denies sore throat - Cardiovascular Cardiovascular: Denies chest pain, Denies shortness of breath - Respiratory Respiratory: Denies cough, Denies 7 - Gastrointestinal Gastrointestinal: Denies abdominal pain, Denies diarrhea, Denies nausea, Denies vomiting - Genitourinary (Female) Genitourinary: Denies dysuria, Denies hematuria - Genitourinary (Male) Genitourinary: Denies dysuria, Denies hematuria - Musculoskeletal Musculoskeletal: Denies myalgias - Integumentary Integumentary: Denies pruritus, Denies rash - Neurological Neurological: Denies numbness, Denies weakness - Psychiatric Psychiatric: Denies anxiety, Denies depression - Endocrine Endocrine: Denies fatigue, Denies weight change Past Medical History Past Medical History: Fibromyalgia, GERD/Reflux Additional Past Medical History / Comment(s): "chronic bronchitis", seasonal allergies kidney stones History of Any Multi-Drug Resistant Organisms: None Reported Past Surgical History: Hernia Repair, Tonsillectomy Additional Past Surgical History / Comment(s): sinus surg.Kidney surgery. Past Anesthesia/Blood Transfusion Reactions: No Reported Reaction Past Psychological History: No Psychological Hx Reported Smoking Status: Former smoker Past Alcohol Use History: None Reported Past Drug Use History: None Reported - Past Family History Father Family Medical History: Cancer Medications and Allergies Home Medications Medication Instructions Recorded Confirmed Type Multivitamins, Thera [Multivitamin 1 tab PO DAILY 12/22/22 01/10/23 History (formulary)] Pregabalin 100 mg PO QID 12/22/22 01/10/23 History Famotidine [Pepcid] 20 mg PO DAILY #30 tablet 01/02/23 01/10/23 Rx cefUROXime axetiL [Ceftin] 500 mg PO BID 20 Days #10 tab 01/02/23 01/10/23 Rx Allergies Allergy/AdvReac Type Severity Reaction Status Date / Time dicyclomine [From Bentyl] Allergy Rapid Verified 01/10/23 07:55 Heart Rate moxifloxacin [From Avelox] Allergy Anaphylaxis Verified 01/10/23 07:55 Penicillins Allergy Unknown Verified 01/10/23 07:55 Childhood Sulfa (Sulfonamide Allergy Unknown Verified 01/10/23 07:55 Antibiotics) Childhood bacitracin AdvReac skin Verified 01/10/23 07:55 [From Neosporin blisters ([id number])] neomycin AdvReac skin Verified 01/10/23 07:55 [From Neosporin blisters ([id number])] polymyxin B AdvReac skin Verified 01/10/23 07:55 [From Neosporin blisters ([id number])] Surgical - Exam Vital Signs Temp Pulse Resp BP Pulse Ox 98 F 83 16 143/79 93 L 01/10/23 06:53 01/10/23 06:53 01/10/23 06:53 01/10/23 06:53 01/10/23 06:53 - General well developed, well nourished, no distress - Eyes normal ocular movement, no icteric - ENT no hearing loss, no congestion - Neck no masses, trachea midline - Respiratory normal respiratory effort, clear to auscultation - Abdomen Right flank ecchymosis and slight tenderness Abdomen: soft, non tender, no guarding, no rigid, no rebound - Integumentary no rash, no abnormal pigmentation - Neurologic no disoriented, no combative - Psychiatric oriented to time, oriented to person, oriented to place, speech is normal, memory intact Results - Imaging CT scan - abdomen: report reviewed, image reviewed CT scan - pelvis: report reviewed, image reviewed Assessment and Plan Assessment: Impression; post op left percutaneous nephrostolithotomy with subcutaneous hematoma, small perinephric hematoma, large right pleural effusion. Recommendations: I will contact Dr. Landrum of pulmonary medicine to evaluate and probably drain the pleural effusion. I suspect that is the majority of the issue up. The amount of. Perinephric hematoma does not appear to be grade it is elongated. Subcutaneous fluid seems to be diminishing. His hemoglobin is stable.
--- NOTE | 2023-01-10 11:54 | P.PCN ---
Date of Procedure: 01/10/23 Preoperative Diagnosis: Pleural effusion, right Postoperative Diagnosis: Pleural effusion, right Anesthesia: local Surgeon: Maria E Landrum Pathology: other Condition: stable Disposition: floor Operative Findings: A time out was performed and the chest x-ray was reviewed, the appropriate side was confirmed and marked. My hands were washed immediately prior to the procedure. I wore a surgical cap, mask with protective eyewear, sterile gown and sterile gloves throughout the procedure. The patient was prepped and draped in a sterile manner using chlorhexidine scrub after the appropriate level was percussed and confirmed by ultrasound. 1% lidocaine was used to anesthesize the skin, subcutaneous tissue, superior aspect of the rib periosteum and parietal pleura. A finder needle was then introduced over the superior aspect of the rib to locate the pleural fluid; 2colored fluid was aspirated at a depth of approximately 2 cm. A 10-blade scalpel was used to yaakov the skin at the insertion site. The [id number]-t-[id number] needle was then introduced through the skin incision into the pleural space using negative aspiration pressure and the red colometric indicator to confirm appropriate positioning of the needle. The thoracentesis catheter was then threaded without difficulty. 950 ml of turbid colored fluid was removed without difficulty. The catheter was then removed. No immediate complications were noted during the procedure. A post-procedure chest x-ray is pending at the time of this note. The fluid will ---- be sent for studies. Estimated blood loss is 0cc
--- NOTE | 2023-01-10 13:05 | XR ---
EXAMINATION TYPE: XR chest 2V DATE OF EXAM: 01/10/2023 COMPARISON: 12/30/2022 HISTORY: Status post thoracentesis TECHNIQUE: Frontal and lateral views of the chest are obtained. FINDINGS: Scattered senescent parenchymal changes noted. Hyperinflation compatible with COPD. There is no evidence for right-sided pneumothorax. Small right effusion persists as well as fluid wit hin the right-sided fissure. Suspect underlying atelectasis. Heart size is stable. Mediastinal structures are stable and grossly unremarkable. No evidence for hilar prominence. Degenerative changes dorsal spine. IMPRESSION: 1. There is no evidence for right-sided pneumothorax. Small right effusion persists as well as fluid within the right-sided fissure. Suspect underlying atelectasis.
--- NOTE | 2023-01-10 13:47 | P.CNPUL ---
History of Present Illness Consult date: 01/10/23 Reason for consult: dyspnea, pleural effusion History of present illness: I was asked to this patient for a right-sided pleural effusion ongoing shortness of breath. The patient is a 72-year-old male with history of nephrolithiasis. The patient underwent a right-sided percutaneous nephro lithotomy for large stone and this was done approximately 2 weeks ago. Postop, he had a nephrostomy tube bleeding leading into a perinephric and subcu in his hematoma as well as a right-sided pleural effusion. The patient had the nephrostomy tube catheter removed approximately a week ago. The patient presented himself to [facility] because of worsening shortness of breath. A CAT scan of the chest was done and the patient was found to have a moderate-sized right-sided pleural effusion along with compressive atelectasis of the right lung base. Based on that, the patient was transferred to our hospital and I consulted on the patient and I did a bedside thoracentesis with a total of 950 mL of pleural fluid was aspirated from the right lung. The fluid was nonbloody. The fluid was not purulent. He continues to have a septic in his hematoma along the posterior right flank area. Chest pain or pleurisy.. The patient was started on accommodation of Rocephin and vancomycin. The patient has been on room air oxygen with a pulse ox of 95%. No reported aspiration. No reported trauma to the chest. The chest exit was done following the procedure showed no evidence of any right-sided pneumothorax. There was small persistent right-sided pleural effusion as well as fluid within the right-sided fissure. Review of Systems Constitutional: Reports as per HPI Eyes: denies as per HPI, denies blurred vision, denies bulging eye, denies decreased vision, denies diplopia, denies discharge, denies dry eye, denies irritation, denies itching, denies pain, denies photophobia, denies loss of peripheral vision, denies loss of vision, denies tunnel vision/blind spots Ears: deny: decreased hearing, ear discharge, earache, tinnitus Ears, nose, mouth and throat: Reports as per HPI Breasts: absent: as per HPI, gynecomastia Cardiovascular: Reports decreased exercise tolerance, Reports dyspnea on exertion Respiratory: Reports dyspnea Gastrointestinal: Reports as per HPI Genitourinary: Reports as per HPI Musculoskeletal: Reports as per HPI Musculoskeletal: absent: ankle pain, ankle stiffness, ankle swelling Integumentary: Reports as per HPI, Reports unusual bruising (Supplemented and his hematoma at the site of the nephrostomy tube insertion) Neurological: Reports as per HPI Psychiatric: Reports as per HPI Endocrine: Reports as per HPI Hematologic/Lymphatic: Reports as per HPI Allergic/Immunologic: Reports as per HPI Past Medical History Past Medical History: Fibromyalgia, GERD/Reflux Additional Past Medical History / Comment(s): "chronic bronchitis", seasonal allergies kidney stones History of Any Multi-Drug Resistant Organisms: None Reported Past Surgical History: Hernia Repair, Tonsillectomy Additional Past Surgical History / Comment(s): sinus surg.Kidney surgery. Past Anesthesia/Blood Transfusion Reactions: No Reported Reaction Past Psychological History: No Psychological Hx Reported Smoking Status: Former smoker Past Alcohol Use History: None Reported Past Drug Use History: None Reported - Past Family History Father Family Medical History: Cancer Medications and Allergies Home Medications Medication Instructions Recorded Confirmed Type Multivitamins, Thera [Multivitamin 1 tab PO DAILY 12/22/22 01/10/23 History (formulary)] Pregabalin 100 mg PO QID 12/22/22 01/10/23 History Famotidine [Pepcid] 20 mg PO DAILY #30 tablet 01/02/23 01/10/23 Rx cefUROXime axetiL [Ceftin] 500 mg PO BID 20 Days #10 tab 01/02/23 01/10/23 Rx Allergies Allergy/AdvReac Type Severity Reaction Status Date / Time dicyclomine [From Bentyl] Allergy Rapid Verified 01/10/23 07:55 Heart Rate moxifloxacin [From Avelox] Allergy Anaphylaxis Verified 01/10/23 07:55 Penicillins Allergy Unknown Verified 01/10/23 07:55 Childhood Sulfa (Sulfonamide Allergy Unknown Verified 01/10/23 07:55 Antibiotics) Childhood bacitracin AdvReac skin Verified 01/10/23 07:55 [From Neosporin blisters ([id number])] neomycin AdvReac skin Verified 01/10/23 07:55 [From Neosporin blisters ([id number])] polymyxin B AdvReac skin Verified 01/10/23 07:55 [From Neosporin blisters ([id number])] Physical Exam Vitals: Vital Signs Temp Pulse Resp BP Pulse Ox 01/10/23 12:19 98.3 F 77 16 141/74 95 01/10/23 08:26 83 18 162/78 94 L 01/10/23 06:53 98 F 83 16 143/79 93 L Intake and Output 01/09/23 01/10/23 01/10/23 22:59 06:59 14:59 Other: Weight 81.647 kg Gen. appearance the patient is calm and comfortable on room air oxygen The patient appeared well nourished and normally developed. Vital signs as documented. Head exam is unremarkable. No scleral icterus or corneal arcus noted. Neck is without jugular venous distension, thyromegaly, or carotid bruits. Carotid upstrokes are brisk bilaterally. Lungs are clear to auscultation and percussion. There was diminished breath on the right lung base along with dullness to percussion. This improved following thoracentesis. Cardiac exam reveals the PMI to be normally sized and situated. Rhythm is regular. First and second heart sounds normal. No murmurs, rubs or gallops. Abdominal exam reveals normal bowel sounds, no masses, no organomegaly and no aortic enlargement. Extremities are nonedematous and both femoral and pedal pulses are normal.Examination of the skin revealed no evidence of significant rashes, suspicious appearing nevi or other concerning lesions. Area of skin hematoma over the right flank at the site of the necessity tube insertion Neurologically, the patient is awake and alert and the patient does not have any focal neurological deficit. Cranial nerves are essentially intact. - Constitutional General appearance: no acute distress Results - Diagnostic Findings Chest x-ray: image reviewed Assessment and Plan Plan: Right-sided pleural effusion on that investigation. The patient had a moderate- sized right-sided pleural effusion. The pleural effusion occurred following the nephrostomy tube insertion/removal as the patient underwent a right-sided percutaneous nephro lithotomy for large kidney stone approximately 2 weeks ago. Consider parapneumonic effusion. Consider urine pneumothorax. We'll evaluate the right-sided pleural effusion. Right-sided thoracentesis and evacuation of around 900 mL of pleural fluid. There is some residual atelectatic change in the right lung base and small residual pleural fluid on the right Shortness of breath secondary to above, improving post thoracentesis History of large posterior right percutaneous nephrolithotomy Right flank hematoma/subcutaneous, as the patient is post insertion and removal of the nephrostomy tube Fibromyalgia Acid reflux Chronic bronchitis along with history of smoking. Plan Obtain CBC and complete metabolic profile Central fluid for analysis including LDH and protein and cytology and cultures Repeat chest x-ray shows improvement elevation of the right lung with residual atelectasis and small effusion in the right lung base Patient is currently on room air oxygen Provide incentive spirometer Antibiotic coverage Urology follow-up We'll continue to follow
[2023-01-10 22:05] LABS: Cholesterol,BF Source Pleural Fluid; Cholesterol,Body Fluid 63 mg/dL; Glucose, BF Source Pleural Fluid; Glucose, Body Fluid 90 mg/dL; LDH, Body Fluid Source Pleural Fluid; T. Protein, Body Fluid Source Pleural Fluid; Total Protein, Body Fluid 3470 mg/dL
[2023-01-11] MEDS ORDERED: VANCOMYCIN 1,500 MG in SODIUM CHLORIDE 0.9% 500 ML 500 ML IVPB SCH ×2
[2023-01-11] MEDS: HYDROmorphone 0.5 MG/0.5 ML SYRINGE IVP PRN ×2 (06:08→20:38)
[2023-01-11 09:05] LABS: ALT 23 U/L (10-49); AST 21 U/L (14-35); Albumin 2.7 d/dL (3.8-4.9); Albumin/Globulin Ratio 1.17 Ratio (1.60-3.17); Alkaline Phosphatase 62 U/L (41-126); Blood Urea Nitrogen 8.3 mg/dL (9.0-27.0); Calcium 8.3 mg/dL (8.7-10.3); Carbon Dioxide 21.4 mmol/L (21.6-31.8); Chloride 103 mmol/L (96-109); Globulin 2.3 d/dL (1.6-3.3); Glucose 94 mg/dL (70-110); Sodium 139 mmol/L (135-145); Total Bilirubin 0.4 mg/dL (0.3-1.2)
--- NOTE | 2023-01-11 09:09 | P.PN ---
Subjective Progress Note Date: 01/11/23 The patient in the hospital with a significant pleural effusion post percutaneous nephrostolithotomy as well as some perinephric fluid. Dr. Landrum drained a liter of fluid yesterday from the right lung. Elevation of the fluid is pending. He is afebrile. Vital signs are stable. He still has some nausea but his pain is less. The bruise on his side is diminished. He will ambulate. We'll see how response to the drainage. Labs are pending. Objective - Vital Signs Vital signs: Vital Signs Temp 98.2 F 01/11/23 07:42 Pulse 76 01/11/23 07:42 Resp 19 01/11/23 07:42 BP 133/74 01/11/23 07:42 Pulse Ox 94 L 01/11/23 07:42 FiO2 Intake & Output 01/10/23 01/11/23 01/11/23 18:59 06:59 18:59 Weight 81.647 kg Other: Voiding Method Toilet # Voids 1 # Bowel Movements 1 - Labs CBC & Chem 7: 01/11/23 04:47 Labs: Abnormal Lab Results - Last 24 Hours (Table) 01/11/23 Range/Units 04:47 Carbon Dioxide 21.4 L (21.6-31.8) mmol/L Anion Gap 14.60 H (4.00-12.00) mmol/L BUN 8.3 L (9.0-27.0) mg/dL Creatinine 0.5 L (0.6-1.5) mg/dL Calcium 8.3 L (8.7-10.3) mg/dL Total Protein 5.0 L (6.2-8.2) d/dL Albumin 2.7 L (3.8-4.9) d/dL Albumin/Globulin Ratio 1.17 L (1.60-3.17) Ratio Microbiology - Last 24 Hours (Table) 01/10/23 11:49 Gram Stain - Preliminary Pleural Fluid
[2023-01-11 10:06] LABS: Basophils # (A) 0.11 X 10*3/uL (0.00-0.10); Basophils % (A) 0.6 %; Eosinophils # (A) 0.44 X 10*3/uL (0.04-0.35); Eosinophils % (A) 2.3 %; HCT 31.8 % (39.6-50.0); HGB 10.2 d/dL (13.0-17.0); Lymphocytes # (A) 1.92 X 10*3/uL (0.90-5.00); Lymphocytes % (A) 9.9 %; MCH 27.3 pg (27.0-32.0); MCHC 32.1 d/dL (32.0-37.0); MCV 85.3 FL (80.0-97.0); Mean Platelet Volume 9.6 FL (9.5-12.2); Monocytes % (A) 7.2 %; NRBC Per 100 WBC 0 X 10*3/uL (0.00-0.01); Neutrophils % (A) 79.1 %; Platelet Count 519 X 10*3/uL (140-440); RBC 3.73 X 10*6/uL (4.40-5.60); RDW 14.5 % (11.5-14.5); WBC 19.45 X 10*3/uL (4.50-10.00)
[2023-01-11 12:06] VITALS: BMI 25.8
--- NOTE | 2023-01-11 13:30 | XR ---
EXAMINATION TYPE: XR chest 2V DATE OF EXAM: 01/11/2023 COMPARISON: 01/10/2023 HISTORY: Shortness of breath TECHNIQUE: Frontal and lateral views of the chest are obtained. FINDINGS: Scattered senescent parenchymal changes noted. Hyperinflation compatible with COPD. Right-sided pleural effusion with areas of discoid atelectasis remain unchanged. Left lung is clear. Heart size is stable. Mediastinal structures are stable and grossly unremarkable. No evidence for hilar prominence. Degenerative changes dorsal spine. IMPRESSION: 1. Right-sided pleural effusion with areas of discoid atelectasis remain unchanged. Left lung is priscila r.
--- NOTE | 2023-01-11 15:01 | P.PN ---
Subjective Progress Note Date: 01/11/23 I was asked to this patient for a right-sided pleural effusion ongoing shortness of breath. The patient is a 72-year-old male with history of nephrolithiasis. The patient underwent a right-sided percutaneous nephro lithotomy for large stone and this was done approximately 2 weeks ago. Postop, he had a nephrostomy tube bleeding leading into a perinephric and subcu in his hematoma as well as a right-sided pleural effusion. The patient had the nephrostomy tube catheter removed approximately a week ago. The patient presented himself to [facility] because of worsening shortness of breath. A CAT scan of the chest was done and the patient was found to have a moderate-sized right-sided pleural effusion along with compressive atelectasis of the right lung base. Based on that, the patient was transferred to our hospital and I consulted on the patient and I did a bedside thoracentesis with a total of 950 mL of pleural fluid was aspirated from the right lung. The fluid was nonbloody. The fluid was not purulent. He continues to have a septic in his hematoma along the posterior right flank area. Chest pain or pleurisy.. The patient was started on accommodation of Rocephin and vancomycin. The patient has been on room air oxygen with a pulse ox of 95%. No reported aspiration. No reported trauma to the chest. The chest exit was done following the procedure showed no evidence of any right-sided pneumothorax. There was small persistent right-sided pleural effusion as well as fluid within the right-sided fissure. On today's evaluation of 01/11/2023, the patient is getting slightly improved. He is having some dry heaves and nausea. His echoes at 19.5 with a hemoglobin of 10.2 and a platelet count of 519. BUN is at 8.3 with a creatinine of 0.5. The pleural fluid LDH was elevated at 948 and the protein was 3470 consistent with exudate. The glucose was at 19. Cytology and culture still pending for now. Her fluids creatinine was only at 0.5. The chest x-ray from today shows a residual right-sided pleural effusion along with some discoid atelectatic changes in the right lung base. Patient was receiving a combination of Rocephin and vancomycin. Is currently on room air oxygen with a pulse ox of 94%. No abdominal pain. No fever or chills. No hypotension. Objective - Vital Signs Vital signs: Vital Signs Temp 98.2 F 01/11/23 07:42 Pulse 76 01/11/23 07:45 Resp 19 01/11/23 07:45 BP 133/74 01/11/23 07:42 Pulse Ox 94 L 01/11/23 07:42 FiO2 Intake & Output 01/10/23 01/11/23 01/11/23 18:59 06:59 18:59 Weight 81.647 kg Other: Voiding Method Toilet Toilet # Voids 1 # Bowel Movements 1 - Exam Gen. appearance the patient is calm and comfortable on room air oxygen The patient appeared well nourished and normally developed. Vital signs as documented. Head exam is unremarkable. No scleral icterus or corneal arcus noted. Neck is without jugular venous distension, thyromegaly, or carotid bruits. Carotid upstrokes are brisk bilaterally. Lungs are clear to auscultation and percussion. There was diminished breath on the right lung base along with dullness to percussion. This improved following thoracentesis. Cardiac exam reveals the PMI to be normally sized and situated. Rhythm is regular. First and second heart sounds normal. No murmurs, rubs or gallops. Abdominal exam reveals normal bowel sounds, no masses, no organomegaly and no aortic enlargement. Extremities are nonedematous and both femoral and pedal pulses are normal.Examination of the skin revealed no evidence of significant rashes, suspicious appearing nevi or other concerning lesions. Area of skin hematoma over the right flank at the site of the necessity tube insertion Neurologically, the patient is awake and alert and the patient does not have any focal neurological deficit. Cranial nerves are essentially intact. - Labs CBC & Chem 7: 01/11/23 04:47 01/11/23 04:47 Labs: Abnormal Lab Results - Last 24 Hours (Table) 01/11/23 01/11/23 Range/Units 04:47 04:47 WBC 19.45 H (4.50-10.00) X 10*3/uL RBC 3.73 L (4.40-5.60) X 10*6/uL Hgb 10.2 L (13.0-17.0) d/dL Hct 31.8 L (39.6-50.0) % Plt Count 519 H (140-440) X 10*3/uL Neutrophils # 15.40 H (1.80-7.70) X 10*3/uL Monocytes # 1.40 H (0.20-1.00) X 10*3/uL Eosinophils # 0.44 H (0.04-0.35) X 10*3/uL Basophils # 0.11 H (0.00-0.10) X 10*3/uL Carbon Dioxide 21.4 L (21.6-31.8) mmol/L Anion Gap 14.60 H (4.00-12.00) mmol/L BUN 8.3 L (9.0-27.0) mg/dL Creatinine 0.5 L (0.6-1.5) mg/dL Calcium 8.3 L (8.7-10.3) mg/dL Total Protein 5.0 L (6.2-8.2) d/dL Albumin 2.7 L (3.8-4.9) d/dL Albumin/Globulin Ratio 1.17 L (1.60-3.17) Ratio Microbiology - Last 24 Hours (Table) 01/10/23 11:49 Gram Stain - Preliminary Pleural Fluid Body Fluid Culture - Preliminary Assessment and Plan Plan: Right-sided pleural effusion on that investigation. The patient had a moderate- sized right-sided pleural effusion. The pleural effusion occurred following the nephrostomy tube insertion/removal as the patient underwent a right-sided percutaneous nephro lithotomy for large kidney stone approximately 2 weeks ago. Consider parapneumonic effusion. Consider urine pneumothorax. Right-sided thoracentesis was done and the fluid was an exudate, cytology and cultures are still pending Right-sided thoracentesis and evacuation of around 900 mL of pleural fluid. There is some residual atelectatic change in the right lung base and small residual pleural fluid on the right Shortness of breath secondary to above, improving post thoracentesis History of large posterior right percutaneous nephrolithotomy Right flank hematoma/subcutaneous, as the patient is post insertion and removal of the nephrostomy tube Fibromyalgia Acid reflux Chronic bronchitis along with history of smoking. Leukocytosis Nausea and dry heaves Plan Acute indication for pneumonia The patient's pleural fluid was an exudate and the culture still pending and the fluid cytology still pending We'll stop antibiotics for now as the patient is facing side effects We'll check a pro-calcitonin level Repeat chest x-ray shows residual effusion and atelectatic change in the right lung base Repeat lites echo in the morning Patient is currently on room air oxygen Provide incentive spirometer Antibiotic coverage Urology follow-up We'll continue to follow
[2023-01-11] MEDS: ONDANSETRON 4 MG/2 ML VIAL IVP PRN (16:15)
[2023-01-11] MEDS: PREGABALIN 100 MG CAP PO SCH ×2 (18:09→20:20)
[2023-01-11] MEDS: SODIUM CHLORIDE 0.9% 1,000 ML IV SCH ×2 (20:02→20:20)
--- NOTE | 2023-01-12 07:57 | P.PN ---
Subjective Progress Note Date: 01/12/23 The patient is 3 weeks status post right percutaneous nephrostolithotomy. He had a postoperative perirenal and subcutaneous bleed. He had a postoperative atelectasis or pneumonia. Is readmitted because of a lot of pain. His urine is cleared. The ecchymosis in the flank is diminishing. He feels much better. He did have a large pleural effusion appears to be reactive that was drained recently. He feels much better today. Objective - Vital Signs Vital signs: Vital Signs Temp 98.6 F 01/12/23 07:30 Pulse 75 01/12/23 07:30 Resp 18 01/12/23 07:30 BP 133/76 01/12/23 07:30 Pulse Ox 97 01/12/23 01:55 FiO2 Intake & Output 01/11/23 01/12/23 01/12/23 18:59 06:59 18:59 Weight 81.647 kg Other: Voiding Method Toilet Toilet # Voids 3 2 - Labs CBC & Chem 7: 01/11/23 04:47 01/11/23 04:47 Labs: Abnormal Lab Results - Last 24 Hours (Table) 01/11/23 01/11/23 Range/Units 04:47 04:47 WBC 19.45 H (4.50-10.00) X 10*3/uL RBC 3.73 L (4.40-5.60) X 10*6/uL Hgb 10.2 L (13.0-17.0) d/dL Hct 31.8 L (39.6-50.0) % Plt Count 519 H (140-440) X 10*3/uL Neutrophils # 15.40 H (1.80-7.70) X 10*3/uL Monocytes # 1.40 H (0.20-1.00) X 10*3/uL Eosinophils # 0.44 H (0.04-0.35) X 10*3/uL Basophils # 0.11 H (0.00-0.10) X 10*3/uL Carbon Dioxide 21.4 L (21.6-31.8) mmol/L Anion Gap 14.60 H (4.00-12.00) mmol/L BUN 8.3 L (9.0-27.0) mg/dL Creatinine 0.5 L (0.6-1.5) mg/dL Calcium 8.3 L (8.7-10.3) mg/dL Total Protein 5.0 L (6.2-8.2) d/dL Albumin 2.7 L (3.8-4.9) d/dL Albumin/Globulin Ratio 1.17 L (1.60-3.17) Ratio Microbiology - Last 24 Hours (Table) 01/10/23 11:49 Gram Stain - Preliminary Pleural Fluid Body Fluid Culture - Preliminary Assessment and Plan Assessment: Impression: Postoperative right percutaneous nephrostolithotomy. Subcutaneous bleed controlled and nonactive. Pleural effusion, reactive, right drained. Recommendations: I briefly reviewed the computed tomography scan with my partners and there does not appear to be any significant perirenal fluid at this point in time. The subcutaneous fluid is resolving. drained a liter of fluid from the right lung. The creatinine was 0.4 consistent with a reactive effusion. There is no obvious leak of urine from the kidney from the computed tomography scan based on the contrast given. The exact cause of this fluid is still indeterminate. The amount of fluid did not really appear to be significant until well after the nephrostomy tube was removed. Regardless he is feeling much better. As Long as he continues to improve we will continue with the present management plan. If his symptoms worsen he probably will need a chest tube.
[2023-01-12] MEDS: ONDANSETRON 4 MG/2 ML VIAL IVP PRN (09:08)
[2023-01-12] MEDS: SODIUM CHLORIDE 0.9% 1,000 ML IV SCH (10:39)
[2023-01-12] MEDS: PREGABALIN 100 MG CAP PO SCH ×4 (10:41→21:36)
[2023-01-12] MEDS: MULTIVITAMINS, THERA 1 EACH TAB PO SCH (10:41)
[2023-01-12] MEDS: FAMOTIDINE 20 MG TAB PO SCH (10:41)
[2023-01-12] MEDS ORDERED: VANCOMYCIN TROUGH DUE 1 EACH MISC MISCELLANE ONE (11:00)
[2023-01-12 11:39] LABS: African American GFR (CKD) >90 (>60 ml/min/1.73 sqM); Non-African American GFR(CKD) >90 (>60 ml/min/1.73 sqM)
--- NOTE | 2023-01-12 15:59 | XR ---
EXAMINATION TYPE: XR chest 2V DATE OF EXAM: 01/12/2023 3:41 PM COMPARISON: Chest radiographs from 01/11/2023 TECHNIQUE: XR chest 2V Frontal and lateral views of the chest. CLINICAL INDICATION:Male, 72 years old with history of FU effusion; FINDINGS: Lungs/Pleura: Similar right-sided pleural effusion. Linear scarring atelectasis within the right midl radha. Left lung is clear. No pneumothorax. Pulmonary vascularity: Unremarkable. Heart/mediastinum: Cardiomediastinal silhouette is unremarkable. Musculoskeletal: No acute osseous pathology. Thoracic spinal stimulator leads identified. IMPRESSION: Similar small to moderate size right pleural effusion from prior exam.
--- NOTE | 2023-01-12 19:25 | P.PN ---
Subjective Progress Note Date: 01/12/23 I was asked to this patient for a right-sided pleural effusion ongoing shortness of breath. The patient is a 72-year-old male with history of nephrolithiasis. The patient underwent a right-sided percutaneous nephro lithotomy for large stone and this was done approximately 2 weeks ago. Postop, he had a nephrostomy tube bleeding leading into a perinephric and subcu in his hematoma as well as a right-sided pleural effusion. The patient had the nephrostomy tube catheter removed approximately a week ago. The patient presented himself to [facility] because of worsening shortness of breath. A CAT scan of the chest was done and the patient was found to have a moderate-sized right-sided pleural effusion along with compressive atelectasis of the right lung base. Based on that, the patient was transferred to our hospital and I consulted on the patient and I did a bedside thoracentesis with a total of 950 mL of pleural fluid was aspirated from the right lung. The fluid was nonbloody. The fluid was not purulent. He continues to have a septic in his hematoma along the posterior right flank area. Chest pain or pleurisy.. The patient was started on accommodation of Rocephin and vancomycin. The patient has been on room air oxygen with a pulse ox of 95%. No reported aspiration. No reported trauma to the chest. The chest exit was done following the procedure showed no evidence of any right-sided pneumothorax. There was small persistent right-sided pleural effusion as well as fluid within the right-sided fissure. On today's evaluation of 01/11/2023, the patient is getting slightly improved. He is having some dry heaves and nausea. His echoes at 19.5 with a hemoglobin of 10.2 and a platelet count of 519. BUN is at 8.3 with a creatinine of 0.5. The pleural fluid LDH was elevated at 948 and the protein was 3470 consistent with exudate. The glucose was at 19. Cytology and culture still pending for now. Her fluids creatinine was only at 0.5. The chest x-ray from today shows a residual right-sided pleural effusion along with some discoid atelectatic changes in the right lung base. Patient was receiving a combination of Rocephin and vancomycin. Is currently on room air oxygen with a pulse ox of 94%. No abdominal pain. No fever or chills. No hypotension. On today's evaluation of 01/12/2023, the patient is stable. The repeat chest x- ray was done and showed a stable small right-sided pleural effusion, and the patient is currently afebrile and hemodynamically stable. Pronestyl level is at 0.07. Antibiotics have been discontinued yesterday and the patient is already feeling better. Is currently on room air oxygen. He was provided incentive spirometer. Pulse ox is in order of 97% on room air. The right flank subcutaneous ecchymotic area is currently inactive and stable. Patient has no complaints. White cell count is to be monitored. Objective - Vital Signs Vital signs: Vital Signs Temp 98.6 F 01/12/23 07:30 Pulse 75 01/12/23 07:30 Resp 18 01/12/23 07:30 BP 133/76 01/12/23 07:30 Pulse Ox 97 01/12/23 01:55 FiO2 Intake & Output 01/11/23 01/12/23 01/12/23 18:59 06:59 18:59 Weight 81.647 kg Other: Voiding Method Toilet Toilet Toilet # Voids 3 2 1 - Exam Gen. appearance the patient is calm and comfortable on room air oxygen The patient appeared well nourished and normally developed. Vital signs as documented. Head exam is unremarkable. No scleral icterus or corneal arcus noted. Neck is without jugular venous distension, thyromegaly, or carotid bruits. Carotid upstrokes are brisk bilaterally. Lungs are clear to auscultation and percussion. There was diminished breath on the right lung base along with dullness to percussion. This improved following thoracentesis. Cardiac exam reveals the PMI to be normally sized and situated. Rhythm is regular. First and second heart sounds normal. No murmurs, rubs or gallops. Abdominal exam reveals normal bowel sounds, no masses, no organomegaly and no aortic enlargement. Extremities are nonedematous and both femoral and pedal pulses are normal.Examination of the skin revealed no evidence of significant rashes, suspicious appearing nevi or other concerning lesions. Area of skin hematoma ov er the right flank at the site of the necessity tube insertion Neurologically, the patient is awake and alert and the patient does not have any focal neurological deficit. Cranial nerves are essentially intact. - Labs CBC & Chem 7: 01/11/23 04:47 01/12/23 10:29 Labs: Microbiology - Last 24 Hours (Table) 01/10/23 11:49 Gram Stain - Preliminary Pleural Fluid Body Fluid Culture - Preliminary Assessment and Plan Plan: Right-sided pleural effusion on that investigation. The patient had a moderate- sized right-sided pleural effusion. The pleural effusion occurred following the nephrostomy tube insertion/removal as the patient underwent a right-sided percutaneous nephro lithotomy for large kidney stone approximately 2 weeks ago. The pleural fluid was an exudate. The fluid cytology is negative for malignancy. Right-sided thoracentesis and evacuation of around 900 mL of pleural fluid. There is some residual atelectatic change in the right lung base and small residual pleural fluid on the right Shortness of breath improved Acute hypoxic respiratory failure improved and the patient is currently on room air oxygen Shortness of breath secondary to above, improving post thoracentesis History of large posterior right percutaneous nephrolithotomy Right flank hematoma/subcutaneous, as the patient is post insertion and removal of the nephrostomy tube Fibromyalgia Acid reflux Chronic bronchitis along with history of smoking. Leukocytosis Nausea and dry heaves Plan Acute indication for pneumonia, pro-calcitonin level is at 0.07 The patient's pleural fluid was an exudate and the culture still pending and the fluid cytology is negative for malignancy No need for antibiotics Monitor the white cell count Repeat chest x-ray was noted Encourage use of incentive spirometer Patient is currently on room air oxygen Provide incentive spirometer Antibiotic coverage Urology follow-up We'll continue to follow
[2023-01-13] MEDS: SODIUM CHLORIDE 0.9% 1,000 ML IV SCH (07:20)
[2023-01-13 07:36] LABS: ALT 24 U/L (4-49); AST 24 U/L (17-59); African American GFR (CKD) >90 (>60 ml/min/1.73 sqM); Albumin 2.7 g/dL (3.5-5.0); Alkaline Phosphatase 66 U/L (38-126); Anion Gap 8 mmol/L; Blood Urea Nitrogen 8 mg/dL (9-20); Calcium 8.3 mg/dL (8.4-10.2); Carbon Dioxide 25 mmol/L (22-30); Chloride 104 mmol/L (98-107); Globulin 2.6 g/dL; Glucose 87 mg/dL (74-99); Non-African American GFR(CKD) >90 (>60 ml/min/1.73 sqM); Potassium 3.8 mmol/L (3.5-5.1); Sodium 137 mmol/L (137-145); Total Bilirubin 0.4 mg/dL (0.2-1.3); Total Protein 5.3 g/dL (6.3-8.2)
--- NOTE | 2023-01-13 07:40 | P.DS ---
Providers Date of admission: 01/10/23 07:23 Attending physician: Giovanni Mcguire Consults: 01/10/23 08:44 Consult Physician Urgent Consulting Provider: Maria E Landrum Consult Reason/Comments: Large pleural effusion Do you want consulting provider notified?: Yes Primary care physician: Marquis Daly [facility] Course: The patient is 3 weeks status post right percutaneous nephrostolithotomy. A postoperative perinephric and subcutaneous hematoma. He developed either pneumonia or atelectasis in the secondary fusion. Whether the infusion was related to the tube or not is indeterminate as the fluid was not consistent with urine but it could've been a reactive effusion. Dr Landrum of pulmonary medicine drained of fluid, 1000 mL. He responded nicely. His antibiotics were stopped. The fluid did not show any white cells. He has remained afebrile. His appetite is returning he is ambulating and feeling very well. There is resolving. His bowels are moving is urinating clear urine Discharge home today and follow in the office in one week. He'll get a CBC at that point in time. He will not go home on antibiotics. He's been given postoperative instructions. Tylenol or Motrin for pain. Condition is good. Patient Condition at Discharge: Good Plan - Discharge Summary Discharge Rx Participant: No New Discharge Prescriptions: No Action Multivitamins, Thera [Multivitamin (formulary)] 1 tab PO DAILY Famotidine [Pepcid] 20 mg PO DAILY #30 tablet cefUROXime axetiL [Ceftin] 500 mg PO BID 20 Days #10 tab Pregabalin 100 mg PO QID Discharge Medication List Multivitamins, Thera [Multivitamin (formulary)] 1 tab PO DAILY 12/22/22 [History] Pregabalin 100 mg PO QID 12/22/22 [History] Famotidine [Pepcid] 20 mg PO DAILY #30 tablet 01/02/23 [Rx] cefUROXime axetiL [Ceftin] 500 mg PO BID 20 Days #10 tab 01/02/23 [Rx] Follow up Appointment(s)/Referral(s): None,Stated [REFERRING] - 1-2 days Giovanni Mcgurie MD [STAFF PHYSICIAN] - 1 Week Discharge Disposition: HOME SELF-CARE
[2023-01-13] MEDS: MULTIVITAMINS, THERA 1 EACH TAB PO SCH (09:48)
[2023-01-13] MEDS: FAMOTIDINE 20 MG TAB PO SCH (09:48)
[2023-01-13] MEDS: PREGABALIN 100 MG CAP PO SCH ×2 (09:48→12:32)
[2023-01-13 11:11] LABS: Basophils % (A) 0.6 %; Eosinophils # (A) 0.55 X 10*3/uL (0.04-0.35); Eosinophils % (A) 3.4 %; HCT 33.7 % (39.6-50.0); HGB 10.9 d/dL (13.0-17.0); Lymphocytes # (A) 2.58 X 10*3/uL (0.90-5.00); Lymphocytes % (A) 15.8 %; MCH 27.3 pg (27.0-32.0); MCHC 32.3 d/dL (32.0-37.0); MCV 84.5 FL (80.0-97.0); Mean Platelet Volume 9.3 FL (9.5-12.2); Monocytes # (A) 1.25 X 10*3/uL (0.20-1.00); Monocytes % (A) 7.7 %; NRBC Per 100 WBC 0 X 10*3/uL (0.00-0.01); Neutrophils # (A) 11.69 X 10*3/uL (1.80-7.70); Neutrophils % (A) 71.5 %; Platelet Count 536 X 10*3/uL (140-440); RBC 3.99 X 10*6/uL (4.40-5.60); RDW 14.6 % (11.5-14.5); WBC 16.33 X 10*3/uL (4.50-10.00)
[2023-01-13 12:14] VITALS: BP 152/75; PULSE 68; RESP 19; TEMP 97.8
--- NOTE | 2023-01-13 12:32 | P.PN ---
Subjective Progress Note Date: 01/13/23 I was asked to this patient for a right-sided pleural effusion ongoing shortness of breath. The patient is a 72-year-old male with history of nephrolithiasis. The patient underwent a right-sided percutaneous nephro lithotomy for large stone and this was done approximately 2 weeks ago. Postop, he had a nephrostomy tube bleeding leading into a perinephric and subcu in his hematoma as well as a right-sided pleural effusion. The patient had the nephrostomy tube catheter removed approximately a week ago. The patient presented himself to [facility] because of worsening shortness of breath. A CAT scan of the chest was done and the patient was found to have a moderate-sized right-sided pleural effusion along with compressive atelectasis of the right lung base. Based on that, the patient was transferred to our hospital and I consulted on the patient and I did a bedside thoracentesis with a total of 950 mL of pleural fluid was aspirated from the right lung. The fluid was nonbloody. The fluid was not purulent. He continues to have a septic in his hematoma along the posterior right flank area. Chest pain or pleurisy.. The patient was started on accommodation of Rocephin and vancomycin. The patient has been on room air oxygen with a pulse ox of 95%. No reported aspiration. No reported trauma to the chest. The chest exit was done following the procedure showed no evidence of any right-sided pneumothorax. There was small persistent right-sided pleural effusion as well as fluid within the right-sided fissure. On today's evaluation of 01/11/2023, the patient is getting slightly improved. He is having some dry heaves and nausea. His echoes at 19.5 with a hemoglobin of 10.2 and a platelet count of 519. BUN is at 8.3 with a creatinine of 0.5. The pleural fluid LDH was elevated at 948 and the protein was 3470 consistent with exudate. The glucose was at 19. Cytology and culture still pending for now. Her fluids creatinine was only at 0.5. The chest x-ray from today shows a residual right-sided pleural effusion along with some discoid atelectatic changes in the right lung base. Patient was receiving a combination of Rocephin and vancomycin. Is currently on room air oxygen with a pulse ox of 94%. No abdominal pain. No fever or chills. No hypotension. On today's evaluation of 01/12/2023, the patient is stable. The repeat chest x- ray was done and showed a stable small right-sided pleural effusion, and the patient is currently afebrile and hemodynamically stable. Pronestyl level is at 0.07. Antibiotics have been discontinued yesterday and the patient is already feeling better. Is currently on room air oxygen. He was provided incentive spirometer. Pulse ox is in order of 97% on room air. The right flank subcutaneous ecchymotic area is currently inactive and stable. Patient has no complaints. White cell count is to be monitored. On today's evaluation of 01/13/2023, the patient is doing extremely well. His related to go home. No significant respiratory distress. The white cell count is dropping and stent currently down to 16.The rest of the blood work shows a stable hemoglobin of 10.9, sodium is at 137, BUN is at 8 with a creatinine of 0.5 and all of the blood work is able for now. Pleural fluid cytology was negative for malignancy. The patient is currently on room air oxygen. Objective - Vital Signs Vital signs: Vital Signs Temp 97.8 F 01/13/23 12:05 Pulse 68 01/13/23 12:05 Resp 19 01/13/23 12:05 BP 152/75 01/13/23 12:05 Pulse Ox 95 01/13/23 12:05 FiO2 Intake & Output 01/12/23 01/13/23 01/13/23 18:59 06:59 18:59 Intake Total 540 Balance 540 Intake: Oral 540 Other: Voiding Method Toilet Toilet # Voids 3 2 1 # Bowel Movements 2 - Exam Gen. appearance the patient is calm and comfortable on room air oxygen The patient appeared well nourished and normally developed. Vital signs as documented. Head exam is unremarkable. No scleral icterus or corneal arcus noted. Neck is without jugular venous distension, thyromegaly, or carotid bruits. Carotid upstrokes are brisk bilaterally. Lungs are clear to auscultation and percussion. There was diminished breath on the right lung base along with dullness to percussion. This improved following thoracentesis. Cardiac exam reveals the PMI to be normally sized and situated. Rhythm is regular. First and second heart sounds normal. No murmurs, rubs or gallops. Abdominal exam reveals normal bowel sounds, no masses, no organomegaly and no aortic enlargement. Extremities are nonedematous and both femoral and pedal pulses are normal.Examination of the skin revealed no evidence of significant rashes, suspicious appearing nevi or other concerning lesions. Area of skin hematoma over the right flank at the site of the necessity tube insertion Neurologically, the patient is awake and alert and the patient does not have any focal neurological deficit. Cranial nerves are essentially intact. - Labs CBC & Chem 7: 01/13/23 05:20 01/13/23 05:20 Labs: Abnormal Lab Results - Last 24 Hours (Table) 01/13/23 01/13/23 Range/Units 05:20 05:20 WBC 16.33 H (4.50-10.00) X 10*3/uL RBC 3.99 L (4.40-5.60) X 10*6/uL Hgb 10.9 L (13.0-17.0) d/dL Hct 33.7 L (39.6-50.0) % RDW 14.6 H (11.5-14.5) % Plt Count 536 H (140-440) X 10*3/uL MPV 9.3 L (9.5-12.2) FL Neutrophils # 11.69 H (1.80-7.70) X 10*3/uL Monocytes # 1.25 H (0.20-1.00) X 10*3/uL Eosinophils # 0.55 H (0.04-0.35) X 10*3/uL BUN 8 L (9-20) mg/dL Creatinine 0.54 L (0.66-1.25) mg/dL Calcium 8.3 L (8.4-10.2) mg/dL Total Protein 5.3 L (6.3-8.2) g/dL Albumin 2.7 L (3.5-5.0) g/dL Microbiology - Last 24 Hours (Table) 01/10/23 11:49 Gram Stain - Preliminary Pleural Fluid Body Fluid Culture - Preliminary Assessment and Plan Plan: Right-sided pleural effusion on that investigation. The patient had a moderate- sized right-sided pleural effusion. The pleural effusion occurred following the nephrostomy tube insertion/removal as the patient underwent a right-sided percutaneous nephro lithotomy for large kidney stone approximately 2 weeks ago. The pleural fluid was an exudate. The fluid cytology is negative for malignancy. Right-sided thoracentesis and evacuation of around 900 mL of pleural fluid. There is some residual atelectatic change in the right lung base and small residual pleural fluid on the right Shortness of breath improved Acute hypoxic respiratory failure improved and the patient is currently on room air oxygen Shortness of breath secondary to above, improving post thoracentesis History of large posterior right percutaneous nephrolithotomy Right flank hematoma/subcutaneous, as the patient is post insertion and removal of the nephrostomy tube Fibromyalgia Acid reflux Chronic bronchitis along with history of smoking. Leukocytosis Nausea and dry heaves Plan The patient is doing extremely well. The patient has no respiratory difficulties. The white cell count is dropping. The patient has small residual pleural effusion which will be monitored and the patient is to be discharged home today to be followed up with me in couple of weeks for a follow-up chest x- ray. Acute indication for pneumonia, pro-calcitonin level is at 0.07 The patient's pleural fluid was an exudate and the culture still pending and the fluid cytology is negative for malignancy No need for antibiotics Monitor the white cell count Repeat chest x-ray was noted Encourage use of incentive spirometer Patient is currently on room air oxygen Provide incentive spirometer Cleared for discharge from the pulmonary standpoint.
== END 2023-01-13 13:23 | disposition home or self-care (01) | DRG 698 ==
LOC: EC 06:49 → 4SSUR 07:23
PROVIDERS: ADMIT Urology; ATTEND Urology
PROC: 0W993ZZ Drainage of Right Pleural Cavity, Percutaneous Approach (ICD-10-PCS; principal; 2023-01-10)
DX: S37.012A Minor contusion of left kidney, initial encounter (principal); J96.01 Acute respiratory failure with hypoxia; N15.1 Renal and perinephric abscess; J98.11 Atelectasis; J90 Pleural effusion, not elsewhere classified; M79.7 Fibromyalgia; J42 Unspecified chronic bronchitis; K21.9 Gastro-esophageal reflux disease without esophagitis; Z87.442 Personal history of urinary calculi; Z87.891 Personal history of nicotine dependence; Z88.0 Allergy status to penicillin; Z88.2 Allergy status to sulfonamides; Z88.8 Allergy status to other drugs, medicaments and biological substances
CPT/HCPCS: 71046; 80053; 82465; 82565; 82570; 82945; 83615; 84145; 84157; 85025; 87070; 87205; 88108; 88305; 96365; 96366; 96367; 99285

== ENCOUNTER → 2023-01-16 | Outpatient (CLI) | payer MEDICARE ==
--- NOTE | 2023-01-16 11:03 | XR ---
EXAMINATION TYPE: XR chest 2V DATE OF EXAM: 01/16/2023 10:52 AM COMPARISON: Chest radiographs from 01/12/2023 TECHNIQUE: XR chest 2V Frontal and lateral views of the chest. CLINICAL INDICATION:Male, 72 years old with history of R06.02 SOB; FINDINGS: Lungs/Pleura: Similar small moderate size right-sided pleural effusion. Linear scarring and/or atelec tasis within the right midlung. Left lung is clear. No pneumothorax. Pulmonary vascularity: Unremarkable. Heart/mediastinum: Cardiomediastinal silhouette is unremarkable. Musculoskeletal: No acute osseous pathology. Thoracic spinal stimulator leads identified. IMPRESSION: Similar small to moderate size right pleural effusion from prior exam.
== END | disposition home or self-care (01) ==
LOC: RADXRMAIN 10:30
PROVIDERS: ATTEND Urology
DX: J90 Pleural effusion, not elsewhere classified (principal); R06.02 Shortness of breath
CPT/HCPCS: 71046

== ENCOUNTER 2023-01-19 10:20 | Day surgery (SDC) | payer MEDICARE ==
[~2023-01-19 10:20] MED LIST changes: -LIDOCAINE 1% (10MG/ML) FOR IV START INTRADERMA PRN; -ONDANSETRON 4 MG/2 ML VIAL IVP ONE; +SODIUM CHLORIDE 0.9% 500 ML 500 ML in EMPTY BAG 1 BAG IV PRN
[2023-01-19 11:05] VITALS: TEMP 98.9
--- NOTE | 2023-01-19 11:53 | P.PCN ---
Date of Procedure: 01/19/23 Preoperative Diagnosis: Pleural effusion, right Postoperative Diagnosis: Pleural effusion, right Procedure(s) Performed: Thoracentesis, right Anesthesia: local Surgeon: Maria E Landrum Urine output (ml): 0 Pathology: none sent Condition: stable Disposition: same day Operative Findings: A time out was performed and the chest x-ray was reviewed, the appropriate side was confirmed and marked. My hands were washed immediately prior to the procedure. I wore a surgical cap, mask with protective eyewear, sterile gown and sterile gloves throughout the procedure. The patient was prepped and draped in a sterile manner using chlorhexidine scrub after the appropriate level was percussed and confirmed by ultrasound. 1% lidocaine was used to anesthesize the skin, subcutaneous tissue, superior aspect of the rib periosteum and parietal pleura. A finder needle was then introduced over the superior aspect of the rib to locate the pleural fluid; 2colored fluid was aspirated at a depth of approximately 2 cm. A 10-blade scalpel was used to yaakov the skin at the insertion site. The [id number] needle was then introduced through the skin incision into the pleural space using negative aspiration pressure and the red colometric indicator to confirm appropriate positioning of the needle. The thoracentesis catheter was then threaded without difficulty. 500 ml of turbid colored fluid was removed without difficulty. The catheter was then removed. No immediate complications were noted during the procedure. A post-procedure chest x-ray is pending at the time of this note. The fluid will not be sent for studies. Estimated blood loss is 0cc
[2023-01-19 12:15] VITALS: BP 148/89; PULSE 90; RESP 18
--- NOTE | 2023-01-19 12:20 | XR ---
EXAMINATION TYPE: XR chest 1V portable DATE OF EXAM: 01/19/2023 COMPARISON: 01/16/2023 HISTORY: Postthoracentesis TECHNIQUE: Single frontal view of the chest is obtained. FINDINGS: No sizable pneumothorax. Underlying COPD. There is a stimulator lead overlying the thoraci c spine. Small right pleural effusion and basilar consolidation. Bilateral shoulder arthropathy. IMPRESSION: 1. No pneumothorax. There is a small right pleural effusion and basilar consolidation. 2. COPD.
== END 2023-01-20 13:20 | disposition home or self-care (01) ==
LOC: PROCWHC3 10:20
PROVIDERS: ATTEND Internal Medicine Critical Care Medicine
DX: J90 Pleural effusion, not elsewhere classified (principal); K21.9 Gastro-esophageal reflux disease without esophagitis; J44.9 Chronic obstructive pulmonary disease, unspecified; M79.7 Fibromyalgia; Z98.890 Other specified postprocedural states; Z88.1 Allergy status to other antibiotic agents; Z88.0 Allergy status to penicillin; Z88.2 Allergy status to sulfonamides; Z88.3 Allergy status to other anti-infective agents; Z88.6 Allergy status to analgesic agent; Z88.8 Allergy status to other drugs, medicaments and biological substances; Z79.891 Long term (current) use of opiate analgesic; Z87.891 Personal history of nicotine dependence; Z79.899 Other long term (current) drug therapy
CPT/HCPCS: 32554; 71045

== ENCOUNTER → 2024-03-08 | Outpatient (CLI) | payer MEDICARE ==
--- NOTE | 2024-03-08 10:32 | CTL ---
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 TECHNIQUE: Multiple axial non-contrast scans were obtained from approximately the lung apices through the upper abdomen. Coronal and sagittal reformatted images were obtained. Low dose technique was uti lized. MIP were created on a separate workstation and submitted for review. CT DLP: 122.5 mGycm, Automated exposure control for dose reduction was used. CT Contrast: Contrast used: None Oral contrast used: None FINDINGS: Lack of intravenous contrast and low dose technique limits the evaluation of the vascular and soft ti ssue structures. LUNGS: No evidence of pulmonary fibrosis. No evidence of focal consolidation, pneumothorax or pleural effusion. Centrilobular emphysema changes. Suspected posterior right lung atelectasis. Nodules: RUL: None. RML: None. RLL: None. MILLIE: None. LLL: None. AIRWAY: Patent and unremarkable. HEART: Size within normal limits. MEDIASTINUM: No gross evidence of adenopathy. VASCULATURE: No aortic aneurysm. MUSCULOSKELETAL: No acute osseous abnormalities there is no stimulator device posterior thecal sac.. SOFT TISSUES/LYMPH NODES: Unremarkable. LOWER NECK: No significant findings. UPPER ABDOMEN: No significant findings. IMPRESSION: 1. No clinically significant pulmonary nodules. 2. Mild emphysema. 3. Posterior right lung suspected pleural atelectasis. This was somewhat similar although low back im proved compared to 12/30/2022. CT LUNG RAD AND CT CHEST RECOMMENDATION: Lung-Rad 2 Benign Appearance or Behavior: Continue annual sc reening with LDCT in 12 months. S Modifier (other clinically significant findings): None Recommend smoking cessation (if current smoker), or continuation of smoking cessation (if prior smoke r). Annual screening for lung cancer with low-dose computed tomography is recommended in adults ages 55 to 77 years who have a 30 pack-year smoking history and currently smoke or have quit within the pa st 15 years. Screening should be discontinued once a person has not smoked for 15 years or develops a health problem that substantially limits life expectancy or the ability or willingness to have curat fredi lung surgery. Lung rads 2021 [email or web address] [facility], , 03/08/2024 10:30 AM
== END | disposition home or self-care (01) ==
LOC: RADCTMAIN 08:08
PROVIDERS: ATTEND Internal Medicine Critical Care Medicine
DX: Z12.2 Encounter for screening for malignant neoplasm of respiratory organs (principal); F17.210 Nicotine dependence, cigarettes, uncomplicated; J43.9 Emphysema, unspecified; J98.11 Atelectasis
CPT/HCPCS: 71271

== ENCOUNTER → 2024-04-02 | Outpatient (CLI) | payer MEDICARE ==
[2024-04-02 15:40] LABS: African American GFR (CKD) >90 (>60 ml/min/1.73 sqM); Blood Urea Nitrogen 9 mg/dL (9-20); Non-African American GFR(CKD) >90 (>60 ml/min/1.73 sqM)
--- NOTE | 2024-04-04 10:11 | CT ---
EXAMINATION TYPE: CT angio abd aorta w/Runoff DATE OF EXAM: 04/02/2024 5:45 PM COMPARISON: None. 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 TECHNIQUE: Multiple thin slice sub-millimeter images were obtained after administration of contrast. 3-D reconstructed images and maximum intensity projection images were obtained. CT angio abd aorta w /Runoff CT Contrast: Contrast used:125ml mL of Isovue 370 with IV Contrast, Oral contrast used: None CT DLP: 2305 mGycm, Automated exposure control for dose reduction was used. FINDINGS: CTA Abdomen and pelvis: Fusiform prominence of the mid abdominal aorta is present up to 3.7 cm. The c ontrast-filled flow lumen is significantly smaller. There is obstruction of the left common iliac art todd. Right internal iliac artery is patent. The external iliac artery is obstructed at its origin. Collateral flow reconstitutes the left superficial femoral artery and the right profunda femoris. Left side Collateral flow extends through the thigh to the popliteal level. Popliteal artery is recon stituted. Left trifurcation vessels are patent. Anterior and posterior tibial arteries are patent at the level of the ankle. Peroneal artery terminates in the distal calf. Right side collateral flow reconstitutes the small caliber popliteal artery. Trifurcation vessels are patent with the anterior and posterior tibial artery crossing the ankle. Peroneal artery extends to the distal calf Limited CT CHEST: No suspicious lung nodules or focal infiltrates are present. There is a small right pleural effusion. CT ABDOMEN: Liver: Normal Spleen: Normal Pancreas: Normal Adrenal glands: The adrenal glands are normal. Gallbladder: Normal Kidneys: No masses are evident. No hydronephrosis is present. No cysts are present. Delayed images were obtained through the kidneys, which remain unremarkable. Aorta: Fusiform prominence abdominal aorta with a smaller flow. Right common iliac artery obstructed. Inferior vena cava: Normal. CT PELVIS: Loops of bowel within the abdomen and pelvis are normal. Study is without oral contrast Appendix: Not identified. No inflammatory changes evident. Urinary bladder: Normal as visualized. Some limitation due to right hip prosthesis Genitourinary structures: Prostate is normal Osseous structures: No suspicious lytic or sclerotic lesions. IMPRESSION: 1. 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 2. Collateral flow reconstitutes collateral vessels within the bilateral thighs and reconstitutes the bilateral popliteal arteries. 3. Trifurcation vessels are patent and anterior and posterior tibial arteries cross the level of the ankle bilaterally. 4. Fusiform prominence of the abdominal aorta with a smaller contrast-filled flow lumen. [facility], , 04/04/2024 10:08 AM
== END | disposition home or self-care (01) ==
LOC: RADCTMAIN 14:57
PROVIDERS: ATTEND Surgery Vascular Surgery
DX: I71.43 Infrarenal abdominal aortic aneurysm, without rupture (principal); I74.5 Embolism and thrombosis of iliac artery
CPT/HCPCS: 82565; 84520; 75635; 36415; Q9967